=== PATIENT | male | born 1960 | race Caucasian/White ===

== ENCOUNTER 2020-12-18 21:58 | Inpatient (IN) | payer MEDICARE, MEDICAID ==
[~2020-12-18] VITALS: Ht 162.6 cm; Wt 84.1 kg
[2020-12-18] MEDS ORDERED: MAG HYDROX/AL HYDROX/SIMETH 30 ML ORAL.SUSP PO PRN (22:15)
[2020-12-18] MEDS ORDERED: MAGNESIUM HYDROXIDE 2,400 MG/30 ML ORAL.SUSP. PO PRN (22:15)
[2020-12-18] MEDS ORDERED: METHYL SALICYLATE/MENTHOL TOPICAL OINTMENT 57GM TUBE. TP PRN (22:15)
[2020-12-18] MEDS ORDERED: ACETAMINOPHEN 325 MG TABLET PO PRN ×2 (22:15→23:15)
[2020-12-18 22:24] VITALS: BP 143/89
--- NOTE | 2020-12-18 23:00 | NUR ---
Admission Note with Justification for Admission to [facility] Patient admitted to [facility] for protective oversight for emergency stabilization of acute psychiatric crisis. Pt admitted from: Hospital ER Mode of arrival: EMS Accompanied By: [facility] Staff Precipitating behaviors that initiated intake and admission: SI, HI, Agitation and depression Description of failure of out patient attempts at stabilization in previous setting list behavior and medication trials: [facility] Behaviors and assessment findings upon admission: Calm and compliant upon admission. Forthcoming with assessment answers and cooperative with cares. States that he feels depressed and received PRN Zyprexa for increased anxiety later in the shift. Plan: Admit for protective oversight for adjustment and stabilization of medications, behaviors and mood. Intense treatment regimen including groups, medication adjustments, therapy, consistent regimen for ADL's, self care, and sleep hygiene. Daily monitoring by Inpatient staff, Psychiatry, and Medical Physician.
[2020-12-18] MEDS ORDERED: VALP500S PO (23:07)
[2020-12-18] MEDS ORDERED: BISA10SU4 RC (23:07)
[2020-12-18] MEDS ORDERED: cholecalciferol PO (23:07)
[2020-12-18] MEDS ORDERED: POLY2500 PO (23:07)
[2020-12-18] MEDS ORDERED: ACET325T9 PO (23:07)
[2020-12-18] MEDS ORDERED: QUET25TA5 PO (23:07)
[2020-12-18] MEDS ORDERED: LEVE10007 PO (23:07)
[2020-12-18] MEDS ORDERED: LITH300C PO (23:07)
[2020-12-18] MEDS ORDERED: ASPI-630 PO (23:07)
[2020-12-18] MEDS ORDERED: QUET50TA5 PO (23:07)
[2020-12-18] MEDS ORDERED: FLUO20CA20 PO (23:07)
[2020-12-18] MEDS ORDERED: ALBU0.63 NEB (23:07)
[2020-12-18] MEDS ORDERED: DOCU50CA9 PO (23:07)
[2020-12-18] MEDS ORDERED: ESOM40CA47 PO (23:07)
[2020-12-18] MEDS ORDERED: KETO120S4 TP (23:07)
[2020-12-18] MEDS ORDERED: BISACODYL 10 MG SUPP.RECT RC PRN (23:15)
[2020-12-19 06:37] VITALS: BP 116/78
[2020-12-19 07:23] LABS: BASO % 0 % (0-3); EOS % 0 % (0-3); HEMATOCRIT 45.5 % (39.0-53.0); LYMPH # 1.1 x10^3/uL (1.0-4.8); LYMPH % 30 % (24-48); MEAN CORPUSCULAR HEMOGLOBIN 31 pg (25-35); MEAN CORPUSCULAR HGB CONC 33 g/dL (31-37); MEAN CORPUSCULAR VOLUME 94 fL (79-100); MONO # 0.3 x10^3/uL (0.0-1.1); MONO % 7 % (0-9); NEUT # 2.3 x10^3uL (1.8-7.7); NEUT % 63 % (31-73); PLATELET COUNT 120 x10^3/uL (140-400); RED BLOOD COUNT 4.81 x10^6/uL (4.30-5.70); RED CELL DISTRIBUTION WIDTH 14.6 % (11.5-14.5); WHITE BLOOD COUNT 3.6 x10^3/uL (4.0-11.0)
[2020-12-19 07:34] LABS: ALBUMIN 3.3 g/dL (3.4-5.0); ALBUMIN/GLOBULIN RATIO 0.9 (1.0-1.7); ALK PHOS 98 U/L (46-116); ALT (SGPT) 16 U/L (16-63); ANION GAP 9 (6-14); AST (SGOT) 17 U/L (15-37); BLOOD UREA NITROGEN 16 mg/dL (8-26); BUN/CREATININE RATIO 20 (6-20); CALCIUM 9.4 mg/dL (8.5-10.1); CARBON DIOXIDE 29 mmol/L (21-32); CHLORIDE 105 mmol/L (98-107); CREATININE 0.8 mg/dL (0.7-1.3); GFR 98.3; GLUCOSE 85 mg/dL (70-99); MAGNESIUM 2.2 mg/dL (1.8-2.4); POTASSIUM 3.9 mmol/L (3.5-5.1); SODIUM 143 mmol/L (136-145); TOTAL BILIRUBIN 0.3 mg/dL (0.2-1.0); TOTAL PROTEIN 7.1 g/dL (6.4-8.2)
[2020-12-19 07:40] LABS: VAL ACID 48 mcg/mL (50-100)
[2020-12-19] MEDS ORDERED: ALBUTEROL SULFATE 2.5 MG/3 ML NEBU. NEB SCH (08:00)
[2020-12-19] MEDS ORDERED: VALPROIC ACID 250 MG CAPSULE. PO SCH (09:00)
[2020-12-19] MEDS: DOCUSATE 100 MG/10 ML SOLUTION. PO SCH ×2 (10:03→20:38)
[2020-12-19] MEDS: LITHIUM CARBONATE 300 MG TABLET PO SCH ×2 (10:04→20:38)
[2020-12-19] MEDS: PANTOPRAZOLE 40 MG TABLET. PO SCH (10:04)
[2020-12-19] MEDS: ASPIRIN CHEWABLE 81 MG TABLET. PO SCH (10:04)
[2020-12-19] MEDS: FLUoxetine HCL 20 MG CAPSULE PO SCH (10:04)
[2020-12-19] MEDS: QUEtiapine 25 MG TABLET. PO SCH (10:05)
[2020-12-19] MEDS: levETIRAcetam 500 MG TABLET PO SCH ×2 (10:05→20:38)
[2020-12-19] MEDS: POLYETHYLENE GLYCOL 3350 17 GM PACKET. PO SCH (10:05)
[2020-12-19] MEDS: ALBUTEROL SULFATE 8GM INHALER. INH SCH ×3 (12:48→20:44)
[2020-12-19 13:12] LABS: THYROXINE 6.9 ug/dL (4.5-12.0)
--- NOTE | 2020-12-19 14:55 | NUR ---
PSYCHOSOCIAL ASSESSMENT ADMISSION DATE: 12/18/20 CONTACT INFORMATION: DPOA/Guardian Contact Name: Jacob is a self sign. His POA is his brother Juan Carlos Samson but the POA is not currently activated. ETHNIC ORIGIN: REASONS FOR ADMISSION: Aggressive Agitated Depressed Hallucinations Homicidal Ideation Poor impulse control Suicidal ideation ADDITIONAL ADMISSION COMMENTS: Per intake record, SI, HI (took silverware from the dining room stating he was going to hurt someone), agitated, depressed, visual hallucinations, command hallucinations, paranoia, fearful. REASON FOR ADMISSION IN PATIENT/FAMILY'S OWN WORDS: Per Jacob,"Mental illness, I'm diagnosed with schizoaffective." PATIENT/FAMILY EXPECTATIONS FOR ADMISSION: Per Jacob, "To be normal as possible, to have social relations with people I have things in common with." LIVING SITUATION: Patient lives with: [facility] Other living arrangements: [facility] Contact Address: [address] [place] [id number] Contact Phone #: [phone] FAMILY RELATIONS: Marital Status: Single # of Marriages: 0 # of Children: 0 [facility] Family Support: Uninvolved Additional Comments r/t Family: Jacob stated, "I never had the urge to have a family." SIGNIFICANT PSYCHIATRIC/MEDICAL HISTORY: Psychiatric/Treatment History: Per Jacob, he has utilized the [place] [facility] for psychiatric services. Jacob reports he has had "many" in patient hospitalizations for psychiatric treatment. Pertinent Family History: Jacob reports that his father in 1982 of Alzheimer's. Jacob denies any other family members of origin to have mental illness or substance use disorders. HISTORICAL DATA: Childhood Environment: Other-see below Childhood Environment Additional Comments: Jacob was born in [facility] to Eleno Samson. He was the second child born of five. He has two sisters and two brothers; Clair, Lydia, Juan Carlos, and Jakub ( from cancer). Jacob has little contact with his siblings. Jacob could not recall anything pertinent about his childhood. He denied being abused as a child or adult. Trauma History: None reported Drug Abuse History last 12 months: None Comment: Jacob reports that he used to drink a 12 pack a week but quit drinking years ago. He does not smoke or use recreational drugs. 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 He stated that it was difficult to find consistent/stable work. He believes to have been diagnosed with mental illness while he was in the service and later went on disability. service: Jacob served in the [employer], entering at 18 y/o, and served for three years. Catholic background: Jacob has no scientologist preference. Sexual orientation: Unknown Educational Level: Jacob graduated from high school. Past/Present Interests/Hobbies: Jacob has enjoyed coin collecting, history, watching the history channel particularly shows on WWII. Jacob also likes cats. Financial support/resources: Disability [place] Benefits Monthly income: Unknown Person handling finances: Jacob Do you have a history of legal problems: None reported Cultural considerations: None reported. SOCIAL RELATIONSHIPS-CURRENT/PAST: [facility]iat[phone] PCP: Dr. 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 Hallucination/Delus Dec. Symp. Depression Promote Coping Skill No Suicidal/Steve. ideation Medication Stabilization Monitor Med Effects Other preliminary treatment comments: Jacob will be encouraged to attend SW and recreational therapy groups while on the unit. DISCHARGE PLANNING: Discharge planning/disposition: Penitentiary Additional discharge needs identified: F/U with PCP and out patient psychiatry ADDITIONAL INFORMATION: Other Pertinent Data: Met with Jacob this date to support related to recent admit and to complete psychosocial assessment. Jacob was agreeable to visit. He is alert and oriented to present situation and is able to make his needs known. Speech is garbled at times. Jacob appeared to recall recent and remote events. He was calm and without s/s of distress during conversation. He had no concerns or unmet needs at times of visit. SW will follow.
[2020-12-19 15:06] LABS: THYROID STIM HORMONE (TSH) 4.436 uIU/mL (0.358-3.740)
--- NOTE | 2020-12-19 15:11 | NUR ---
Call placed to TO Silva at [facility], with intent to inform that Jacob has been admitted to [facility] for treatment. Left message for Shira with request for return call. Awaiting call.
[2020-12-19 15:30] VITALS: BP 99/64
[2020-12-19] MEDS ORDERED: KETOCONAZOLE 2% SHAMPOO 120ML BOTTLE. TP SCH (16:00)
[2020-12-19 16:28] VITALS: BP 138/84
[2020-12-19] MEDS ORDERED: VALP250S3 PO (17:57)
--- NOTE | 2020-12-19 18:30 | NUR ---
Patient has been calm, compliant, and disorganized this shift. He participated in group activity. Patient had a persistent hacking cough throughout the shift. He stayed withdrawn to his room for most of the shift, he was incontinent multiple times. Will continue to monitor and report to oncoming shift.
--- NOTE | 2020-12-19 19:32 | CONS ---
DATE OF CONSULTATION: 12/19/2020 REASON FOR CONSULTATION: Medical management. HISTORY OF PRESENT ILLNESS: The patient is a 60-year-old male patient who was referred [facility] from [facility] on account of having commanding voices, hallucinating, has suicidal and homicidal ideation. He took a silverware from dining room stating he was going to hurt somebody, is very agitated and depressed. He apparently has visual hallucination, extremely paranoid and he apparently failed outpatient psychiatric intervention at the NH and was referred to this unit for inpatient psychiatric stabilization. PAST MEDICAL HISTORY: Significant for hyperlipidemia, hypertension, osteoarthritis, idiopathic thrombocytopenia. He has also peripheral neuropathy, type 2 diabetes mellitus, seizure disorder. ALLERGIES: HE IS ALLERGIC TO CITALOPRAM. MEDICATIONS: He is currently on following medications: He is on albuterol sulfate by nebulizer 4 times a day, aspirin 81 mg once a day, acetaminophen 650 mg every 6 hours, Keppra 1000 mg twice a day, valproic acid 500 mg daily, fluoxetine 20 mg daily. He is on quetiapine fumarate 50 mg at bedtime, Seroquel 25 mg daily, lithium carbonate 300 mg twice a day, bisacodyl 10 mg rectally daily p.r.n. for constipation, Colace 50 mg twice a day, Nexium 40 mg once a day, ketoconazole shampoo applied topically 3 times a day, polyethylene glycol 17 grams daily and cholecalciferol vitamin D3 2000 units once a day. Apparently, the patient was COVID positive in 09/2020, has had both COVID vaccination, second dose was on 11/06/2020. FAMILY HISTORY: Noncontributory. SOCIAL HISTORY: He is a resident at [facility]. He apparently does not smoke, drink alcohol or use recreational drugs. PHYSICAL EXAMINATION: GENERAL: When I saw him today, he was sitting at the edge of the bed comfortably in no apparent respiratory distress. There was no pallor, jaundice, cyanosis or thyromegaly. No jugular venous distention. No limb edema. VITAL SIGNS: His heart rate was 103, blood pressure was 99/64, temperature was 98.5, respiratory rate was 16, and oxygen saturation was 96%. HEAD, EYES, EARS, NOSE AND THROAT: Showed normocephalic, atraumatic. NECK: Supple. HEART: Showed normal first and second heart sounds. No gallop, rub or murmur. CHEST: Clear to auscultation. No crepitation or rhonchi. ABDOMEN: Distended, soft, nontender. NEUROLOGIC: He was awake, alert, responding appropriately. All cranial nerves intact. EXTREMITIES: He moves extremities without difficulty. He is able to ambulate for short distances, but he is mostly bed bound, wheelchair bound. LABORATORY DATA: Showed a white cell count of 3600, hemoglobin 15, hematocrit 45, MCV 94 and platelet count of 120,000 with normal manual differential. Serum sodium was 143, potassium 3.9, chloride 105, bicarbonate 29, anion gap of 9, BUN 16, creatinine 0.8, estimated GFR was 98 mL per minute. His glucose was 85, calcium was 9.4, magnesium 2.2. Serum iron, TIBC and iron saturation are all normal. His total bilirubin, AST, ALT, alkaline phosphatase were normal. Total protein 7.1, albumin 3.3. Serum triglycerides 187, cholesterol 141, LDL was 64, VLDL was 37, HDL was 40 and ratio was 3. His TSH was 4.436. His total T4 and total T3 are all normal. His D-dimer was 0.33 and toxic screen showed his valproic acid was 48 mcg/mL, which is slightly subtherapeutic. IMPRESSION: In summary, this is a 60-year-old male patient who resides at [facility], who carries a diagnosis of schizoaffective disorder, depressive type. He apparently has been reporting multiple voices are telling him to hurt himself. He also reports that they are intense, they have told him to hurt himself with a knife, feels that the voices are stronger [place] of the [place]. He also reports visual hallucination of a group of voices, people groups, he reports he has managed and controlled the urge to hurt himself, but yesterday he heard voices telling him to hurt staff. Denies any homicidal ideation on the day of admission. Apparently, the patient has had a suicidal attempt in 2014 and therefore he was transferred to [facility] for inpatient psychiatric stabilization. Medically, he has multiple medical problems including hypertension, hyperlipidemia, thrombocytopenia, chronic constipation, peripheral neuropathy, type 2 diabetes mellitus, seizure disorder. All in all, the patient seems to be medically stable. His vital signs are stable. I reviewed all his lab work and all seem to be within acceptable range except that he has obviously thrombocytopenia and mild leukopenia. Thank you, Dr. Deras for allowing me to participate in the care of this patient. JUSTIN RAMOS MD DR: BETO/thony JOB#: [id number] / [id number]
[2020-12-19] MEDS: CHOLECALCIFEROL (VITAMIN D3) 1,000 UNIT TABLET PO SCH (20:42)
[2020-12-19] MEDS: VALPROIC ACID 250 MG CAPSULE. PO SCH (20:42)
--- NOTE | 2020-12-19 20:59 | PDOC ---
Exam Note: Travis Note: Please also refer to the separate dictated note~for this date of service dictated separately.~Patient seen individually. Discussed the patient with Nursing staff reviewed the chart.~Reviewed interim history and current functioning. Reviewed vital signs,~Labs/ Radiology~and current medications noted below. Continue current treatment with the changes noted in the dictated addendum note Assessment: Vital Signs/I&O: Vital Signs Date Time Temp Pulse Resp B/P (MAP) Pulse Ox O2 Delivery O2 Flow Rate FiO2 12/19/20 16:28 76 138/84 (102) 100 Room Air 12/19/20 15:30 98.5 16 I & O 12/18/20 12/18/20 12/19/20 15:00 23:00 07:00 Intake Total 0 ml Balance 0 ml Labs: Laboratory Tests Test 12/19/20 06:42 White Blood Count 3.6 x10^3/uL (4.0-11.0) L Red Blood Count 4.81 x10^6/uL (4.30-5.70) Hemoglobin 15.0 g/dL (13.0-17.5) Hematocrit 45.5 % (39.0-53.0) Mean Corpuscular Volume 94 fL (79-100) Mean Corpuscular Hemoglobin 31 pg (25-35) Mean Corpuscular Hemoglobin Concent 33 g/dL (31-37) Red Cell Distribution Width 14.6 % (11.5-14.5) H Platelet Count 120 x10^3/uL (140-400) L Neutrophils (%) (Auto) 63 % (31-73) Lymphocytes (%) (Auto) 30 % (24-48) Monocytes (%) (Auto) 7 % (0-9) Eosinophils (%) (Auto) 0 % (0-3) Basophils (%) (Auto) 0 % (0-3) Neutrophils # (Auto) 2.3 x10^3uL (1.8-7.7) Lymphocytes # (Auto) 1.1 x10^3/uL (1.0-4.8) Monocytes # (Auto) 0.3 x10^3/uL (0.0-1.1) Eosinophils # (Auto) 0.0 x10^3/uL (0.0-0.7) Basophils # (Auto) 0.0 x10^3/uL (0.0-0.2) D-Dimer (Marlen) 0.33 mg/L (0.00-0.50) Sodium Level 143 mmol/L (136-145) Potassium Level 3.9 mmol/L (3.5-5.1) Chloride Level 105 mmol/L (98-107) Carbon Dioxide Level 29 mmol/L (21-32) Anion Gap 9 (6-14) Blood Urea Nitrogen 16 mg/dL (8-26) Creatinine 0.8 mg/dL (0.7-1.3) Estimated GFR (Cockcroft-Gault) 98.3 BUN/Creatinine Ratio 20 (6-20) Glucose Level 85 mg/dL (70-99) Calcium Level 9.4 mg/dL (8.5-10.1) Magnesium Level 2.2 mg/dL (1.8-2.4) Iron Level 66 ug/dL (65-175) Total Iron Binding Capacity 290 ug/dL (250-450) Iron Saturation 23 % (15-34) Total Bilirubin 0.3 mg/dL (0.2-1.0) Aspartate Amino Transferase (AST) 17 U/L (15-37) Alanine Aminotransferase (ALT) 16 U/L (16-63) Alkaline Phosphatase 98 U/L (46-116) Total Protein 7.1 g/dL (6.4-8.2) Albumin 3.3 g/dL (3.4-5.0) L Albumin/Globulin Ratio 0.9 (1.0-1.7) L Triglycerides Level 187 mg/dL (0-150) H Cholesterol Level 141 mg/dL (0-200) LDL Cholesterol, Calculated 64 mg/dL (0-100) VLDL Cholesterol, Calculated 37 mg/dL (0-40) Non-HDL Cholesterol Calculated 101 mg/dL (0-129) HDL Cholesterol 40 mg/dL (40-60) Cholesterol/HDL Ratio 3.0 Vitamin B12 Level 874 pg/mL (247-911) 25-Hydroxy Vitamin D Total 59.7 ng/mL (30-100) Thyroid Stimulating Hormone (TSH) 4.436 uIU/mL (0.358-3.740) Thyroxine (T4) 6.9 ug/dL (4.5-12.0) Total Triiodothyronine (TT3) 112 ng/dL (71-180) Valproic Acid Level 48 mcg/mL (50-100) L Valproic Acid Last Dose Date 12/18/20 Valproic Acid Last Dose Time 0900 Treponema pallidum Antibody Nonreactive (Nonreactive) Current Medications: Meds: Current Medications Medications (Trade) Dose Ordered Sig/Manpreet Route PRN Reason Start Time Stop Time Status Last Admin Dose Admin Aspirin (Aspirin Chewable) 81 mg DAILY PO 12/19/20 09:00 12/19/20 10:04 Fluoxetine HCl (PROzac) 20 mg DAILY PO 12/19/20 09:00 12/19/20 10:04 Quetiapine Fumarate (SEROquel) 25 mg DAILY PO 12/19/20 09:00 12/19/20 10:05 Quetiapine Fumarate (SEROquel) 50 mg QHS PO 12/19/20 21:00 12/19/20 20:40 Docusate Sodium (Colace Solution) 50 mg BID PO 12/19/20 09:00 12/19/20 20:38 Pantoprazole Sodium (Protonix) 40 mg DAILYAC PO 12/19/20 07:30 12/19/20 10:04 Levetiracetam (Keppra) 1,000 mg BID PO 12/19/20 09:00 12/19/20 20:38 [place] Carbonate 300 mg BID PO 12/19/20 09:00 12/19/20 20:38 Polyethylene Glycol (miraLAX) 17 gm DAILY PO 12/19/20 09:00 12/19/20 10:05 Valproic Acid (Depakene) 500 mg DAILY PO 12/19/20 09:00 12/19/20 18:01 DC 12/19/20 10:04 Vitamin D (Vitamin D3) 2,000 unit QHS PO 12/19/20 21:00 12/19/20 20:42 Olanzapine (ZyPREXA ZYDIS) 5 mg PRN Q2HR PRN PO PSYCHOSIS 12/18/20 23:30 12/18/20 23:30 Albuterol Sulfate (Ventolin Hfa Inhaler) 1 puff QID INH 12/19/20 13:00 12/19/20 20:44 Valproic Acid (Depakene) 750 mg QHS PO 12/19/20 21:00 12/19/20 20:42 I have reviewed the current psychotropics carefully including drug interactions. Risk benefit ratio favors no change other than as noted in my dictated progress note. Diagnosis: Problems: (1) Schizoaffective disorder, bipolar type ROSI OSORIO MD Dec 19, 2020 20:59
[2020-12-19] MEDS ORDERED: QUEtiapine 50 MG TABLET. PO SCH (21:00)
--- NOTE | 2020-12-19 22:35 | HP ---
ADMIT DATE: 12/19/2020 PSYCHIATRIC ADMISSION HISTORY/EVALUATION IDENTIFYING DATA: The patient is a 60-year-old male, referred to us from the [facility] in [place] after he presented there from the nursing facility where he resides and was increasingly paranoid and was voicing suicidal ideation and homicidal ideation. Reportedly, he took a knife from the dining room, was threatening to hurt one of the other residents. He had also voiced suicidal ideation, but without any plan, intent or attempt. He was increasingly agitated, depressed, stated he needed his psychotropics adjusted for his mood symptoms and was sent to the [facility]. The [facility] drug abuse social worker was contacted, education program coordinator Eulalia Gallegos, and I discussed the patient with Eulalia before agreeing to the transfer. CHIEF COMPLAINT: "I need my medications adjusted. Yes, I am depressed." HISTORY OF PRESENT ILLNESS: Reportedly, the patient has a long history of schizoaffective disorder, bipolar type. Recently, he has been more paranoid, depressed, anxious with some sleep and appetite changes. No active hallucinations but he has been somewhat paranoid. He denies any current homicidal ideation or suicidal ideation at the time I examined him, evening of 12/19/2020. He does have a history of mood swings. PAST PSYCHIATRIC HISTORY: As above. MEDICAL HISTORY: Hyperlipidemia, hypertension, osteoarthritis, idiopathic thrombocytopenic purpura, seizures, type 2 diabetes mellitus, peripheral neuropathy, chronic constipation. He has been on a PEG tube in the past. ACCU-CHEKS: Before meals and at bedtime. CODE STATUS: Full code. ALLERGIES: CELEXA. DIET: Diabetic, honey thickened. Takes medications whole. Ambulates x 1-2 with walker by himself or wheelchair. CURRENT PSYCHOTROPICS: Prozac 5 mg a day, lithium 300 mg b.i.d., Seroquel 50 mg at bedtime and 25 mg daily, Depakote liquid 500 mg daily, Zyprexa p.r.n. Valproic acid level is 48, though he may not be getting the same dosage he was getting at the residential and we will contact the residential. We will start the dosage they were giving and repeat another valproic acid level in 2 days. FAMILY HISTORY: Noncontributory. SOCIAL HISTORY: No history of alcohol, drug abuse, physical, sexual or elder abuse. He is not known to be a perpetrator. REACTION TO HOSPITALIZATION: The patient accepting of it. ASSETS: Supportive, [facility] REVIEW OF SYSTEMS: No CV, , pulmonary, eye, ENT system symptoms on review. MENTAL STATUS EXAMINATION: The patient is oriented to himself and situation. Speech has some latency, coherent. Abstraction fair, computation impaired, language function intact, attention span short. Mood and affect somewhat withdrawn. He was lying in bed in his room when I went to visit him. No active suicidal or homicidal ideation. LABORATORY DATA: Reviewed. IMPRESSION: Schizoaffective disorder, bipolar type, depressed with psychotic features; anxiety disorder, unspecified; history of major depressive disorder with psychotic features. Rest unchanged from above. PLAN: Continue current psychotropics. Check a valproic acid level and adjust dosage of Depakote as noted above. Check lithium level. Continue rest of psychotropics and adjust as clinically indicated. I will see the patient daily individually, medical followup with Dr. Brar/Dr. Jean ESTIMATED LENGTH OF STAY: 10-12 days. DISPOSITION: Plans back to residential when stable. MAN Melissa OSORIO MD DR: MICHELLE/thony JOB#: [id number] / [id number]
[2020-12-20 01:07] LABS: HEMOGLOBIN A1C 5.1 % (4.8-5.6)
--- NOTE | 2020-12-20 02:53 | NUR ---
Nursing Note The patient was located in the hallway for his assessment and medication pass. The patient took his medication whole. The patient was compliant with his assessment and was able state name and location but was unable to state year. The patient voiced at several times that he would like to leave the hospital soon.
[2020-12-20 06:22] VITALS: BP 116/71
[2020-12-20] MEDS: levETIRAcetam 500 MG TABLET PO SCH ×2 (09:44→20:38)
[2020-12-20] MEDS: POLYETHYLENE GLYCOL 3350 17 GM PACKET. PO SCH (09:44)
[2020-12-20] MEDS: DOCUSATE 100 MG/10 ML SOLUTION. PO SCH ×2 (09:44→20:41)
[2020-12-20] MEDS: ASPIRIN CHEWABLE 81 MG TABLET. PO SCH (09:45)
[2020-12-20] MEDS: FLUoxetine HCL 20 MG CAPSULE PO SCH (09:45)
[2020-12-20] MEDS: LITHIUM CARBONATE 300 MG TABLET PO SCH ×2 (09:45→20:38)
[2020-12-20] MEDS: QUEtiapine 25 MG TABLET. PO SCH (09:45)
[2020-12-20] MEDS: PANTOPRAZOLE 40 MG TABLET. PO SCH (09:45)
[2020-12-20] MEDS: VALPROIC ACID 250 MG CAPSULE. PO SCH ×3 (09:46→20:38)
[2020-12-20] MEDS: ALBUTEROL SULFATE 8GM INHALER. INH SCH ×4 (09:47→20:44)
--- NOTE | 2020-12-20 13:02 | NUR ---
Pt appears in a pleasant and cooperative mood thus far during shift. He is med compliant and cooperative with morning assessment. He is able to make needs known; for example he has requested that [facility] staff communicate with his provider at [facility] to ensure a smooth continuation of care. He endorses non-specific and intermittent HI and SI with no plan. He is able and willing to verbally contract for safety of self and others and has been absent of SI/HI behaviors during shift. He reports VH/AH but does not go into further detail. There have been a few occasions where nursing staff have observed pt in his room alone and appeared to be looking at and talking to and unknown/unseen entity. He denies pain when asked. Prior to ending assessment session pt was once again asked if he is able to refrain from harming himself or others. Pt chuckled and replied, "As long as you don't anger me or get me drunk."
[2020-12-20 16:06] VITALS: BP 130/78
[2020-12-20] MEDS: MINERAL OIL/PETROLATUM TOPICAL CREAM 113GM JAR. TP SCH ×2 (16:52→20:41)
[2020-12-20] MEDS: CHOLECALCIFEROL (VITAMIN D3) 1,000 UNIT TABLET PO SCH (20:38)
[2020-12-20] MEDS: risperiDONE 0.5 MG TABLET. PO SCH (20:43)
--- NOTE | 2020-12-20 20:59 | PDOC ---
Exam Note: Travis Note: Please also refer to the separate dictated note~for this date of service dictated separately.~Patient seen individually. Discussed the patient with Nursing staff reviewed the chart.~Reviewed interim history and current functioning. Reviewed vital signs,~Labs/ Radiology~and current medications noted below. Continue current treatment with the changes noted in the dictated addendum note Assessment: Vital Signs/I&O: Vital Signs Date Time Temp Pulse Resp B/P (MAP) Pulse Ox O2 Delivery O2 Flow Rate FiO2 12/20/20 16:06 97.8 81 16 130/78 (95) 98.0 12/20/20 06:22 97 Room Air I & O 12/19/20 12/19/20 12/20/20 15:00 23:00 07:00 Intake Total 580 ml 480 ml Balance 580 ml 480 ml Labs: Laboratory Tests Test 12/20/20 06:34 [place] Level 0.7 mmol/L (0.6-1.2) [place] Last Dose Date 12/19/20 [place] Last Dose Time 2100 Current Medications: Meds: Laboratory Tests Test 12/20/20 06:34 [place] Level 0.7 mmol/L [place] Last Dose Date 12/19/20 [place] Last Dose Time 2100 Current Medications Medications (Trade) Dose Ordered Sig/Manpreet Route PRN Reason Start Time Stop Time Status Last Admin Dose Admin Acetaminophen (Tylenol) 650 mg PRN Q6HRS PRN PO MILD PAIN / TEMP > 100.3'F 12/18/20 22:15 12/18/20 23:22 DC Multi-Ingredient Ointment (Analgesic [place]) 1 deanna PRN QID PRN TP MUSCLE PAIN 12/18/20 22:15 Al Hydroxide/Mg Hydroxide (Mylanta Plus Xs) 15 ml PRN AFTMEALHC PRN PO DYSPEPSIA 12/18/20 22:15 Magnesium Hydroxide (Milk Of Magnesia) 2,400 mg PRN QHS PRN PO 1ST CHOICE CONSTIPATION 12/18/20 22:15 Acetaminophen (Tylenol) 650 mg PRN Q6HRS PRN PO MILD PAIN / TEMP > 100.3'F 12/18/20 23:15 Aspirin (Aspirin Chewable) 81 mg DAILY PO 12/19/20 09:00 12/20/20 09:45 Bisacodyl (Dulcolax Supp) 10 mg PRN DAILY PRN RC 2ND CHOICE CONSTIPATION 12/18/20 23:15 Fluoxetine HCl (PROzac) 20 mg DAILY PO 12/19/20 09:00 12/20/20 09:45 Ketoconazole (Nizoral 2% Shampoo) 1 deanna QTUTHSA TP 12/19/20 16:00 Quetiapine Fumarate (SEROquel) 25 mg DAILY PO 12/19/20 09:00 12/20/20 17:39 DC 12/20/20 09:45 Quetiapine Fumarate (SEROquel) 50 mg QHS PO 12/19/20 21:00 12/20/20 17:39 DC 12/19/20 20:40 Albuterol Sulfate (Ventolin) 2.5 mg RTQID NEB 12/19/20 08:00 12/19/20 11:21 DC Docusate Sodium (Colace Solution) 50 mg BID PO 12/19/20 09:00 12/20/20 09:44 Pantoprazole Sodium (Protonix) 40 mg DAILYAC PO 12/19/20 07:30 12/20/20 09:45 Levetiracetam (Keppra) 1,000 mg BID PO 12/19/20 09:00 12/20/20 20:38 [place] Carbonate 300 mg BID PO 12/19/20 09:00 12/20/20 20:38 Polyethylene Glycol (miraLAX) 17 gm DAILY PO 12/19/20 09:00 12/20/20 09:44 Valproic Acid (Depakene) 500 mg DAILY PO 12/19/20 09:00 12/19/20 18:01 DC 12/19/20 10:04 Vitamin D (Vitamin D3) 2,000 unit QHS PO 12/19/20 21:00 12/20/20 20:38 Olanzapine (ZyPREXA ZYDIS) 5 mg PRN Q2HR PRN PO PSYCHOSIS 12/18/20 23:30 12/18/20 23:30 Albuterol Sulfate (Ventolin Hfa Inhaler) 1 puff QID INH 12/19/20 13:00 12/20/20 20:44 Valproic Acid (Depakene) 750 mg QHS PO 12/19/20 21:00 12/20/20 20:38 Valproic Acid (Depakene) 500 mg 0900,1700 PO 12/20/20 09:00 12/20/20 16:52 Multi-Ingred Cream/Lotion/Oil/ Oint (Hydrocerin) 1 deanna BID TP 12/20/20 16:00 12/20/20 20:41 Risperidone (RisperDAL) 0.25 mg 0800 PO 12/21/20 08:00 Risperidone (RisperDAL) 0.5 mg HS PO 12/20/20 21:00 12/20/20 20:43 Current Medications Medications (Trade) Dose Ordered Sig/Manpreet Route PRN Reason Start Time Stop Time Status Last Admin Dose Admin Quetiapine Fumarate (SEROquel) 50 mg QHS PO 12/19/20 21:00 12/20/20 17:39 DC 12/19/20 20:40 Vitamin D (Vitamin D3) 2,000 unit QHS PO 12/19/20 21:00 12/20/20 20:38 Valproic Acid (Depakene) 750 mg QHS PO 12/19/20 21:00 12/20/20 20:38 Valproic Acid (Depakene) 500 mg 0900,1700 PO 12/20/20 09:00 12/20/20 16:52 Multi-Ingred Cream/Lotion/Oil/ Oint (Hydrocerin) 1 deanna BID TP 12/20/20 16:00 12/20/20 20:41 Risperidone (RisperDAL) 0.5 mg HS PO 12/20/20 21:00 12/20/20 20:43 I have reviewed the current psychotropics carefully including drug interactions. Risk benefit ratio favors no change other than as noted in my dictated progress note. Diagnosis: Problems: (1) Bipolar disorder, curr episode mixed, severe, with psychotic features (2) Major depressive disorder with psychotic features (3) Anxiety disorder, unspecified (4) Schizoaffective disorder, bipolar type ROSI OSORIO MD Dec 20, 2020 20:59
--- NOTE | 2020-12-20 22:45 | PN ---
DATE: 12/20/2020 PSYCHIATRIC PROGRESS NOTE This note covers elements not covered in my initial note 12/20/2020. SUBJECTIVE: I met with the patient evening of 12/20/2020 in his room. Discussed with DEEDEE Silva. The patient slept 6 hours previous night. The patient has been somewhat withdrawn, needs reminders by nursing staff for his personal hygiene. He has had some diarrhea. He is wanting us to contact the [facility], so I talked to the doctors and we will request records of past psychiatric treatment from the [facility]. Per nursing staff, he has had some more auditory or visual hallucinations, appear psychotic during the day. He has no specific threats to himself or others, but states when he gets frustrated he wants to hurt himself or someone else. Nothing specific on my evaluation. REVIEW OF SYSTEMS: Ambulation impaired with walker. No CV, , pulmonary, eye system symptoms on review. MENTAL STATUS EXAM: Reasonably oriented. Speech is coherent, has some latency. Abstraction fair, computation impaired, language function intact, attention span short. Mood and affect somewhat anxious, labile. LABORATORY DATA: Reviewed. IMPRESSION: Schizoaffective disorder, bipolar type, mixed with psychotic features. Rest unchanged. PLAN: Quentin level today is 0.7. He remains quite psychotic and we will change the Seroquel to Risperdal 0.25 mg a.m. and 0.5 mg at bedtime. Get records from the [facility]. Continue Depakote at the current dosage along with lithium, Prozac, Zyprexa as p.r.n., adjust further as clinically indicated. MAN Melissa OSORIO MD DR: MICHELLE/thony JOB#: [id number] / [id number]
--- NOTE | 2020-12-20 23:39 | NUR ---
Nursing Note Pt in room, sits up in bed during assessment. Stares at me wide eyed, and blurts out "I'm a paranoid schizo!! Just what is your treatment plan for me in this place, tell me what you are going to do to ensure my success in this program? Where am I going for my discharge tomorrow?" I explained he was here to get med adjustments and to decrease his agitation. I also told him that I was not the steaming machine operator that could help with discharge info that info will be determined depending on progress. Pt stated "Oh so me and you are just the pee-on's around here, we only get information when it suits others HUH?? Well I know where I stand then!" I informed him that social work will be back and he would be able to speak with them. Pt states "Well I bet they are on a 4 day weekend, and won't be back till Friday! So much for that talk!!" Informed patient SW will be here M-F. pt med compliant and cooperative. Voided with [employer] but specimen wasn't collected, will attempt later in the shift. Pt agreeable to providing specimen.
--- NOTE | 2020-12-21 00:47 | NUR ---
Nursing Note Pt has diffuse red patches over his body, seems to be more evident after his shower. Has many areas that look as though he has scratched raw. When I inquired about them, he states that he was a redhead and that his coloring is consistent with that. Increased intensity of color present after his shower.
[2020-12-21 05:58] VITALS: BP 130/72
[2020-12-21] MEDS: ASPIRIN CHEWABLE 81 MG TABLET. PO SCH (08:47)
[2020-12-21] MEDS: PANTOPRAZOLE 40 MG TABLET. PO SCH (08:47)
[2020-12-21] MEDS: risperiDONE 0.25 MG TABLET. PO SCH (08:47)
[2020-12-21] MEDS: LITHIUM CARBONATE 300 MG TABLET PO SCH ×2 (08:47→19:44)
[2020-12-21] MEDS: FLUoxetine HCL 20 MG CAPSULE PO SCH (08:47)
[2020-12-21] MEDS: DOCUSATE 100 MG/10 ML SOLUTION. PO SCH ×2 (08:48→19:44)
[2020-12-21] MEDS: POLYETHYLENE GLYCOL 3350 17 GM PACKET. PO SCH (08:48)
[2020-12-21] MEDS: levETIRAcetam 500 MG TABLET PO SCH ×2 (08:48→19:44)
[2020-12-21] MEDS: VALPROIC ACID 250 MG CAPSULE. PO SCH ×3 (08:48→19:44)
[2020-12-21] MEDS: MINERAL OIL/PETROLATUM TOPICAL CREAM 113GM JAR. TP SCH ×2 (08:49→19:45)
[2020-12-21] MEDS: ALBUTEROL SULFATE 8GM INHALER. INH SCH ×4 (08:49→19:45)
--- NOTE | 2020-12-21 10:53 | NUR ---
WEEKLY ACTIVITY THERAPY NOTE Date of Admission: 12/18/20 Date of AT Assessment: TBD Precipitating behaviors that initiated intake and admission: SI, HI, Agitation and depression Goal aimed: TBD Initial Goal: TBD Weekly progress towards goal: NA Group participation level: 2 full since admission Weekly highlights: arrived to unit and has fully engaged in a couple groups Behaviors observed: coughing, pleasant/appropriate in group setting and able to process directions and understand group expectations Plan: meet/ assess Pt Beneficial adaptations:
--- NOTE | 2020-12-21 11:45 | TX PLAN ---
Interdisciplinary Tx Plan Admission Information Dec 18, 2020 at 21:58 Legal Status (on Admission): Voluntary DPOA/Guardian Name: Jacob is a self sign. Brother is POA when needed. Other Contact Verified Code Status: Full Code Allergies: Coded Allergies: citalopram (Verified Allergy, Unknown, 12/18/20) Estimated Length of Stay: 14 Diagnoses Primary Diagnosis: Schizoaffective, bipolar type with psychotic fetures Reasons for Admission: Aggressive, Agitated, Depressed, Hallucinations, Suicidal ideation, Homicidal Ideation, Poor impulse control Problem in Patient's Words: Per Jacob,"Mental illness, I'm diagnosed with schizoaffective." Additional Admission Comments: Per intake record, SI, HI (took silverware from the dining room stating he was going to hurt someone), agitated, depressed, visual hallucintations, command hallucinations, paranoia, fearful. Problems Active Problems: SI HI Hallucinating Paranoid Inactive Problems: Intakes are adequate Slept eight hours night of 12/20/20 Medication compliant Pt Strengths/Limitations Ability for [place]: Fair Cognitive Functioning/Ability: Fair Communication Skills/Ability: Fair Financial Resources: Fair Insight/Judgement: Fair Intellectual Ability: Fair Physical Health: Fair Social Skills: Fair Stability in Family: Poor Verbal Skills: Fair Discharge Criteria Discharge Criteria: Adequate arrangements @DC, Adequate self-care, Improved behavior, Improved mood/thought Preliminary Discharge Plan Preliminary DC Plan: Jail Other Arrangements: [facility] Special Precautions Special Precautions: Agitation/Assault, Suicide Risk, Swallowing/Choking Fall Risk: High Initial D/C Plan Return to [facility] once stable Identified Discharge Needs: F/U with PCP and out patient psychiatry thru the [place] Currently Utilized Resources Currently Utilized Resources/P: PCP [place] out patient mental health services Identified Problems/Hx/Goals Objectives/Short-Term Goals Short Term Goals: Dec. Hallucination/Delus, Dec. Symp. Depression, Medication Stabilization, Monitor Med Effects, No Suicidal/Steve. ideation, Promote Coping Skill Short Term Goals in Patient's: Per Jacob, "Be normal as possible. Have social relations with people I have things in common with." Interventions/Frequency Staff Interventions/Frequency&: Nursing to provide routine safety checks, medication administration, and adl support. Psychiatry three times weekly. SW visit twice weekly. Recreational and SW groups as Jacob desires. 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 He stated that it was difficult to find consistent/stable work. He believes to have been diagnosed with mental illness while he was in the service and later went on disability. Social: Jacob has enjoyed coin collecting, history, and cats. Education: Jacob graduated from high school. Community Follow-up PCP [place] [facility] Treatment Plan Explained Patient/Insurance Biller had this treatment plan explained to him/her as indicated by the signature below and has been given the opportunity to ask questions and make suggestions: Date: Patient/Insurance Biller Signature: CANDACE HERNANDEZ Dec 21, 2020 11:45
--- NOTE | 2020-12-21 12:35 | NUR ---
ACTIVITY THERAPY ASSESSMENT completed based on notes, observation and interview. Pt was using a wheelchair to ambulate self through the allan. Pt asked AT if he could have a copy of his brother's phone number. AT asked pt if she could ask a few questions first and then ask about the phone number. Pt was pleasant and agreeable during time of assessment. Pt often speaks with wide eyes and little eye contact. Assessment was taken to pt's room. Pt's skin is very red and appears to have been scratched raw, pt also has severely dry skin. Pt said that this was his third time on [facility], based on notes there are no prior admissions for this pt. Pt was able to answer some orientation questions such as his birthday and that he was in [employer]. Pt said that the year was 2001 and he was at [facility] [employer] [facility]. Pt likes history, watching TV, watching movies, music and some magazines. Pt said that he liked history because his dad was in World War II. Pt said that he did not have many friends and those he had have . 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 Pt said that his strokes did not cause any severe health problems but he is in a wheelchair. Pt said that he has never been and has no children. Pt said that he utilizes the [facility] in [place] for inpatient and outpatient services. Pt explained that his reason for admission is because of suicidal thoughts and depression. Pt agrees that he is still having suicidal thoughts and depressive episodes. Pt said that he would like to go back to [place] because he really likes the [facility] there. Pt said that he has two sisters in [place] and would really like to go back. AT explained what activities are offered. Pt said he did not have any confucianist background but did request a bible to read. Initial goal aimed to increase time management and socialization skills. Pt will participate in at least five individual or group Activity Therapy sessions per week.
--- NOTE | 2020-12-21 13:59 | NUR ---
Treatment team meeting was held today. TO contacted Alissa, nurse at [facility], to provide an update on Jacob. Faxed current notes, medication list, and labs to Alissa for review. Tentative d/c date around 01/03/21. Addendum: 12/21/20 at 1633 by CANDACE ARIZA TO met with Jacob per his request. Above information reviewed with Jacob and he expressed agreement to the plan and voiced that he just wanted to be informed of the plan. Jacob expresses the desire to live in a care facility located in [place] to be closer to his family. TO will mention this to his SW at [facility] to see if this is something that can be researched as possible option for the future.
--- NOTE | 2020-12-21 15:17 | NUR ---
Per MD order, medical record request faxed to [facility].
[2020-12-21 18:26] LABS: BILIRUBIN,URINE NEG (NEG); CLARITY,URINE CLEAR; COLOR,URINE YELLOW; GLUCOSE,URINE NEG (NEG); NITRITE,URINE NEG (NEG)
[2020-12-21 18:27] LABS: BACTERIA,URINE 0 /HPF (0-FEW); WBC,URINE 0 /HPF (0-4)
--- NOTE | 2020-12-21 18:30 | NUR ---
Patient has been calm, compliant, and disorganized this shift. He participated in group activity. Patient has an intermittent hacking cough throughout the shift. He was social with staff. Will continue to monitor and report to oncoming shift.
[2020-12-21] MEDS: CHOLECALCIFEROL (VITAMIN D3) 1,000 UNIT TABLET PO SCH (19:45)
[2020-12-21] MEDS: risperiDONE 0.5 MG TABLET. PO SCH (19:45)
--- NOTE | 2020-12-21 21:06 | PDOC ---
Exam Note: Travis Note: Please also refer to the separate dictated note~for this date of service dictated separately.~Patient seen individually. Discussed the patient with Nursing staff reviewed the chart.~Reviewed interim history and current functioning. Reviewed vital signs,~Labs/ Radiology~and current medications noted below. Continue current treatment with the changes noted in the dictated addendum note Assessment: Vital Signs/I&O: Vital Signs Date Time Temp Pulse Resp B/P (MAP) Pulse Ox O2 Delivery O2 Flow Rate FiO2 12/21/20 05:58 97.6 81 18 130/72 (91) 99 12/20/20 16:06 98.0 12/20/20 06:22 Room Air I & O 12/20/20 12/20/20 12/21/20 15:00 23:00 07:00 Intake Total 440 ml 200 ml Balance 440 ml 200 ml Labs: Laboratory Tests Test 12/21/20 18:00 Urine Collection Type Unknown Urine Color Yellow Urine Clarity Clear Urine pH 7.0 Urine Specific [place] 1.020 Urine Protein Neg (NEG-TRACE) Urine Glucose (UA) Neg mg/dL (NEG) Urine Ketones (Stick) Neg mg/dL (NEG) Urine Blood Neg (NEG) Urine Nitrite Neg (NEG) Urine Bilirubin Neg (NEG) Urine Urobilinogen Dipstick 2.0 mg/dL (0.2 mg/dL) Urine Leukocyte Esterase Neg (NEG) Urine RBC 1-2 /HPF (0-2) Urine WBC 0 /HPF (0-4) Urine Squamous Epithelial Cells None /LPF Urine Bacteria 0 /HPF (0-FEW) Current Medications: Meds: Current Medications Medications (Trade) Dose Ordered Sig/Manpreet Route PRN Reason Start Time Stop Time Status Last Admin Dose Admin Risperidone (RisperDAL) 0.25 mg 0800 PO 12/21/20 08:00 12/21/20 08:47 I have reviewed the current psychotropics carefully including drug interactions. Risk benefit ratio favors no change other than as noted in my dictated progress note. Diagnosis: Problems: (1) Schizoaffective disorder, bipolar type (2) Anxiety disorder, unspecified (3) Bipolar disorder, curr episode mixed, severe, with psychotic features (4) Major depressive disorder with psychotic features ROSI OSORIO MD Dec 21, 2020 21:06
--- NOTE | 2020-12-22 00:32 | NUR ---
Nursing Note Pt less intrusive, calm and compliant no odd statements. Cooperative with meds and assessments.
[2020-12-22] MEDS: ASPIRIN CHEWABLE 81 MG TABLET. PO SCH (05:27)
[2020-12-22] MEDS: PANTOPRAZOLE 40 MG TABLET. PO SCH (05:27)
[2020-12-22] MEDS: VALPROIC ACID 250 MG CAPSULE. PO SCH ×3 (05:27→20:35)
[2020-12-22] MEDS: risperiDONE 0.25 MG TABLET. PO SCH (05:27)
[2020-12-22] MEDS: levETIRAcetam 500 MG TABLET PO SCH ×2 (05:27→20:35)
[2020-12-22] MEDS: LITHIUM CARBONATE 300 MG TABLET PO SCH ×2 (05:27→20:36)
[2020-12-22] MEDS: FLUoxetine HCL 20 MG CAPSULE PO SCH (05:27)
[2020-12-22] MEDS: DOCUSATE 100 MG/10 ML SOLUTION. PO SCH ×2 (05:28→20:36)
[2020-12-22] MEDS: MINERAL OIL/PETROLATUM TOPICAL CREAM 113GM JAR. TP SCH ×2 (05:28→20:36)
[2020-12-22] MEDS: ALBUTEROL SULFATE 8GM INHALER. INH SCH ×4 (05:28→20:39)
[2020-12-22] MEDS: POLYETHYLENE GLYCOL 3350 17 GM PACKET. PO SCH (05:28)
[2020-12-22 05:45] LABS: BASO % 0 % (0-3); EOS % 0 % (0-3); HEMATOCRIT 40.7 % (39.0-53.0); HEMOGLOBIN 13.4 g/dL (13.0-17.5); LYMPH # 1.3 x10^3/uL (1.0-4.8); LYMPH % 33 % (24-48); MEAN CORPUSCULAR HEMOGLOBIN 31 pg (25-35); MEAN CORPUSCULAR HGB CONC 33 g/dL (31-37); MEAN CORPUSCULAR VOLUME 95 fL (79-100); MONO # 0.2 x10^3/uL (0.0-1.1); MONO % 6 % (0-9); NEUT # 2.3 x10^3uL (1.8-7.7); NEUT % 60 % (31-73); PLATELET COUNT 108 x10^3/uL (140-400); RED BLOOD COUNT 4.28 x10^6/uL (4.30-5.70); RED CELL DISTRIBUTION WIDTH 14.7 % (11.5-14.5); WHITE BLOOD COUNT 3.9 x10^3/uL (4.0-11.0)
[2020-12-22 06:02] LABS: ALBUMIN 2.9 g/dL (3.4-5.0); ALBUMIN/GLOBULIN RATIO 0.9 (1.0-1.7); ALK PHOS 88 U/L (46-116); ALT (SGPT) 17 U/L (16-63); ANION GAP 7 (6-14); AST (SGOT) 8 U/L (15-37); BLOOD UREA NITROGEN 11 mg/dL (8-26); BUN/CREATININE RATIO 12 (6-20); CALCIUM 8.6 mg/dL (8.5-10.1); CARBON DIOXIDE 28 mmol/L (21-32); CHLORIDE 108 mmol/L (98-107); CREATININE 0.9 mg/dL (0.7-1.3); GFR 85.8; GLUCOSE 114 mg/dL (70-99); SODIUM 143 mmol/L (136-145); TOTAL BILIRUBIN 0.3 mg/dL (0.2-1.0); TOTAL PROTEIN 6.2 g/dL (6.4-8.2)
[2020-12-22 06:03] LABS: VAL ACID 71 mcg/mL (50-100)
[2020-12-22 06:18] VITALS: BP 153/92
[2020-12-22] MEDS ORDERED: risperiDONE 1 MG TABLET. PO SCH (09:00)
[2020-12-22] MEDS: KETOCONAZOLE 2% SHAMPOO 120ML BOTTLE. TP SCH (10:48)
--- NOTE | 2020-12-22 13:01 | NUR ---
Nursing note: Pt has been pleasant and cooperative this shift. Upon initial assessment, pt denied having any SI. When giving pt his inhaler at lunchtime, pt pulled his plastic knife he received at lunch out from under his bed sheets and demonstrated that he was having thoughts of cutting his wrist. Pt states that he just wants to go back to the [facility]. Will make sure pt does not receive any more knives with his meals and continue to monitor.
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
[2020-12-22 15:55] VITALS: BP 150/86
--- NOTE | 2020-12-22 18:28 | NUR ---
Nursing note: Pt stated tonight that he was getting more depressed and wondered if he was on any antidepressants. Pt was given the information requested and then he asked to listen to Marcos Morales on the tamara. He later stopped me in the hallway and said the music has "cheered me up immeasurably!"
[2020-12-22] MEDS: CHOLECALCIFEROL (VITAMIN D3) 1,000 UNIT TABLET PO SCH (20:35)
--- NOTE | 2020-12-22 20:52 | PDOC ---
Exam Note: Travis Note: Please also refer to the separate dictated note~for this date of service dictated separately.~Patient seen individually. Discussed the patient with Nursing staff reviewed the chart.~Reviewed interim history and current functioning. Reviewed vital signs,~Labs/ Radiology~and current medications noted below. Continue current treatment with the changes noted in the dictated addendum note Assessment: Vital Signs/I&O: Vital Signs Date Time Temp Pulse Resp B/P (MAP) Pulse Ox O2 Delivery O2 Flow Rate FiO2 12/22/20 15:55 97.9 72 20 150/86 (107) 98 12/20/20 16:06 98.0 12/20/20 06:22 Room Air I & O 12/21/20 12/21/20 12/22/20 15:00 23:00 07:00 Intake Total 960 ml 360 ml Balance 960 ml 360 ml Labs: Laboratory Tests Test 12/22/20 05:30 White Blood Count 3.9 x10^3/uL (4.0-11.0) L Red Blood Count 4.28 x10^6/uL (4.30-5.70) L Hemoglobin 13.4 g/dL (13.0-17.5) Hematocrit 40.7 % (39.0-53.0) Mean Corpuscular Volume 95 fL (79-100) Mean Corpuscular Hemoglobin 31 pg (25-35) Mean Corpuscular Hemoglobin Concent 33 g/dL (31-37) Red Cell Distribution Width 14.7 % (11.5-14.5) H Platelet Count 108 x10^3/uL (140-400) L Neutrophils (%) (Auto) 60 % (31-73) Lymphocytes (%) (Auto) 33 % (24-48) Monocytes (%) (Auto) 6 % (0-9) Eosinophils (%) (Auto) 0 % (0-3) Basophils (%) (Auto) 0 % (0-3) Neutrophils # (Auto) 2.3 x10^3uL (1.8-7.7) Lymphocytes # (Auto) 1.3 x10^3/uL (1.0-4.8) Monocytes # (Auto) 0.2 x10^3/uL (0.0-1.1) Eosinophils # (Auto) 0.0 x10^3/uL (0.0-0.7) Basophils # (Auto) 0.0 x10^3/uL (0.0-0.2) Sodium Level 143 mmol/L (136-145) Potassium Level 4.0 mmol/L (3.5-5.1) Chloride Level 108 mmol/L (98-107) H Carbon Dioxide Level 28 mmol/L (21-32) Anion Gap 7 (6-14) Blood Urea Nitrogen 11 mg/dL (8-26) Creatinine 0.9 mg/dL (0.7-1.3) Estimated GFR (Cockcroft-Gault) 85.8 BUN/Creatinine Ratio 12 (6-20) Glucose Level 114 mg/dL (70-99) H Calcium Level 8.6 mg/dL (8.5-10.1) Total Bilirubin 0.3 mg/dL (0.2-1.0) Aspartate Amino Transferase (AST) 8 U/L (15-37) L Alanine Aminotransferase (ALT) 17 U/L (16-63) Alkaline Phosphatase 88 U/L (46-116) Total Protein 6.2 g/dL (6.4-8.2) L Albumin 2.9 g/dL (3.4-5.0) L Albumin/Globulin Ratio 0.9 (1.0-1.7) L Valproic Acid Level 71 mcg/mL (50-100) Valproic Acid Last Dose Date 12/21/2020 Valproic Acid Last Dose Time 2100 Current Medications: Meds: Laboratory Tests Test 12/22/20 05:30 White Blood Count 3.9 x10^3/uL Red Blood Count 4.28 x10^6/uL Hemoglobin 13.4 g/dL Hematocrit 40.7 % Mean Corpuscular Volume 95 fL Mean Corpuscular Hemoglobin 31 pg Mean Corpuscular Hemoglobin Concent 33 g/dL Red Cell Distribution Width 14.7 % Platelet Count 108 x10^3/uL Neutrophils (%) (Auto) 60 % Lymphocytes (%) (Auto) 33 % Monocytes (%) (Auto) 6 % Eosinophils (%) (Auto) 0 % Basophils (%) (Auto) 0 % Neutrophils # (Auto) 2.3 x10^3uL Lymphocytes # (Auto) 1.3 x10^3/uL Monocytes # (Auto) 0.2 x10^3/uL Eosinophils # (Auto) 0.0 x10^3/uL Basophils # (Auto) 0.0 x10^3/uL Sodium Level 143 mmol/L Potassium Level 4.0 mmol/L Chloride Level 108 mmol/L Carbon Dioxide Level 28 mmol/L Anion Gap 7 Blood Urea Nitrogen 11 mg/dL Creatinine 0.9 mg/dL Estimated GFR (Cockcroft-Gault) 85.8 BUN/Creatinine Ratio 12 Glucose Level 114 mg/dL Calcium Level 8.6 mg/dL Total Bilirubin 0.3 mg/dL Aspartate Amino Transf (AST/SGOT) 8 U/L Alanine Aminotransferase (ALT/SGPT) 17 U/L Alkaline Phosphatase 88 U/L Total Protein 6.2 g/dL Albumin 2.9 g/dL Albumin/Globulin Ratio 0.9 Valproic Acid (Depakene) Level 71 mcg/mL Valproic Acid Last Dose Date 12/21/2020 Valproic Acid Last Dose Time 2100 Current Medications Medications (Trade) Dose Ordered Sig/Manpreet Route PRN Reason Start Time Stop Time Status Last Admin Dose Admin Acetaminophen (Tylenol) 650 mg PRN Q6HRS PRN PO MILD PAIN / TEMP > 100.3'F 12/18/20 22:15 12/18/20 23:22 DC Multi-Ingredient Ointment (Analgesic [place]) 1 deanna PRN QID PRN TP MUSCLE PAIN 12/18/20 22:15 Al Hydroxide/Mg Hydroxide (Mylanta Plus Xs) 15 ml PRN AFTMEALHC PRN PO DYSPEPSIA 12/18/20 22:15 Magnesium Hydroxide (Milk Of Magnesia) 2,400 mg PRN QHS PRN PO 1ST CHOICE CONSTIPATION 12/18/20 22:15 Acetaminophen (Tylenol) 650 mg PRN Q6HRS PRN PO MILD PAIN / TEMP > 100.3'F 12/18/20 23:15 Aspirin (Aspirin Chewable) 81 mg DAILY PO 12/19/20 09:00 12/22/20 05:27 Bisacodyl (Dulcolax Supp) 10 mg PRN DAILY PRN RC CONSTIPATION 12/18/20 23:15 Fluoxetine HCl (PROzac) 20 mg DAILY PO 12/19/20 09:00 12/22/20 05:27 Ketoconazole (Nizoral 2% Shampoo) 1 deanna QTUTHSA TP 12/19/20 16:00 12/21/20 16:19 DC Quetiapine Fumarate (SEROquel) 25 mg DAILY PO 12/19/20 09:00 12/20/20 17:39 DC 12/20/20 09:45 Quetiapine Fumarate (SEROquel) 50 mg QHS PO 12/19/20 21:00 12/20/20 17:39 DC 12/19/20 20:40 Albuterol Sulfate (Ventolin) 2.5 mg RTQID NEB 12/19/20 08:00 12/19/20 11:21 DC Docusate Sodium (Colace Solution) 50 mg BID PO 12/19/20 09:00 12/22/20 20:36 Pantoprazole Sodium (Protonix) 40 mg DAILYAC PO 12/19/20 07:30 12/22/20 05:27 Levetiracetam (Keppra) 1,000 mg BID PO 12/19/20 09:00 12/22/20 20:35 [place] Carbonate 300 mg BID PO 12/19/20 09:00 12/22/20 20:36 Polyethylene Glycol (miraLAX) 17 gm DAILY PO 12/19/20 09:00 12/21/20 08:48 Valproic Acid (Depakene) 500 mg DAILY PO 12/19/20 09:00 12/19/20 18:01 DC 12/19/20 10:04 Vitamin D (Vitamin D3) 2,000 unit QHS PO 12/19/20 21:00 12/22/20 20:35 Olanzapine (ZyPREXA ZYDIS) 5 mg PRN Q2HR PRN PO PSYCHOSIS 12/18/20 23:30 12/18/20 23:30 Albuterol Sulfate (Ventolin Hfa Inhaler) 1 puff QID INH 12/19/20 13:00 12/22/20 20:39 Valproic Acid (Depakene) 750 mg QHS PO 12/19/20 21:00 12/22/20 20:35 Valproic Acid (Depakene) 500 mg 0900,1700 PO 12/20/20 09:00 12/22/20 17:32 Multi-Ingred Cream/Lotion/Oil/ Oint (Hydrocerin) 1 deanna BID TP 12/20/20 16:00 12/22/20 20:36 Risperidone (RisperDAL) 0.25 mg 0800 PO 12/21/20 08:00 12/22/20 17:58 DC 12/22/20 05:27 Risperidone (RisperDAL) 0.5 mg HS PO 12/20/20 21:00 12/22/20 17:58 DC 12/21/20 19:45 Ketoconazole (Nizoral 2% Shampoo) 1 deanna QODAY TP 12/22/20 12:00 12/22/20 10:48 Risperidone (RisperDAL) 1.5 mg 1X ONCE PO 12/22/20 21:00 12/22/20 21:01 12/22/20 20:36 Risperidone (RisperDAL) 1 mg BID PO 12/22/20 09:00 12/22/20 18:21 DC Risperidone (RisperDAL) 1 mg BID PO 12/23/20 09:00 Current Medications Medications (Trade) Dose Ordered Sig/Manpreet Route PRN Reason Start Time Stop Time Status Last Admin Dose Admin Ketoconazole (Nizoral 2% Shampoo) 1 deanna QODAY TP 12/22/20 12:00 12/22/20 10:48 Risperidone (RisperDAL) 1.5 mg 1X ONCE PO 12/22/20 21:00 12/22/20 21:01 12/22/20 20:36 I have reviewed the current psychotropics carefully including drug interactions. Risk benefit ratio favors no change other than as noted in my dictated progress note. Diagnosis: Problems: (1) Schizoaffective disorder, bipolar type (2) Anxiety disorder, unspecified (3) Bipolar disorder, curr episode mixed, severe, with psychotic features (4) Major depressive disorder with psychotic features ROSI OSORIO MD Dec 22, 2020 20:52
[2020-12-22] MEDS ORDERED: risperiDONE 0.5 MG TABLET. PO ONE (21:00)
--- NOTE | 2020-12-23 01:26 | NUR ---
Nursing Note Pt in [place] during assessment. Pleasant calm and cooperative. No complaints.
[2020-12-23] MEDS: DOCUSATE 100 MG/10 ML SOLUTION. PO SCH ×2 (04:47→20:44)
[2020-12-23] MEDS: PANTOPRAZOLE 40 MG TABLET. PO SCH (04:48)
[2020-12-23] MEDS: levETIRAcetam 500 MG TABLET PO SCH ×2 (04:48→20:44)
[2020-12-23] MEDS: POLYETHYLENE GLYCOL 3350 17 GM PACKET. PO SCH (04:48)
[2020-12-23] MEDS: FLUoxetine HCL 20 MG CAPSULE PO SCH (04:48)
[2020-12-23] MEDS: MINERAL OIL/PETROLATUM TOPICAL CREAM 113GM JAR. TP SCH ×2 (04:48→20:46)
[2020-12-23] MEDS: ASPIRIN CHEWABLE 81 MG TABLET. PO SCH (04:48)
[2020-12-23] MEDS: LITHIUM CARBONATE 300 MG TABLET PO SCH ×2 (04:48→20:44)
[2020-12-23] MEDS: VALPROIC ACID 250 MG CAPSULE. PO SCH ×3 (04:48→20:44)
[2020-12-23] MEDS: risperiDONE 1 MG TABLET. PO SCH ×2 (04:49→20:44)
[2020-12-23] MEDS: ALBUTEROL SULFATE 8GM INHALER. INH SCH ×4 (04:50→20:45)
[2020-12-23 06:25] VITALS: BP 155/74
--- NOTE | 2020-12-23 07:14 | PDOC ---
Exam Note: Travis Note: This note is a late entry for 12/21/2020 covers elements not covered in my initial note. Subjective: The patient was seen face to face in the morning of 12/21/2020 for a treatment team meeting with Eulalia Miranda, Cristina Sandoval and Nettie (community mental health social worker), Milagros Gaming, activity therapy and Bowen MARK, reviewed the chart and reviewed the patients history at length. [facility] will get [facility] from [facility] as [facility]. The patient just slept 8 hours previous night. Previous evening he was aggressive, was strange per nursing report. Appetite is 80%. He has had some swallowing problems. We will defer to Dr. Brar. Review of Systems: No CV, , pulmonary, eye, ENT system symptoms on review. Gait unsteady in wheelchair. Mental Status Exam: The patient is reasonably oriented. Speech has some latency, coherent. Abstraction is fair. Computation impaired. Language function is intact, somewhat paranoid, distractible. No active suicidal or homicidal ideation. Laboratory Data: Reviewed. Impression: Schizoaffective disorder bipolar type, mixed with psychotic fea tures. Anxiety disorder unspecified. Impulse control disorder unspecified. Plan: Continue current psychotropics but if psychotic symptoms persist, we may need to increase the Risperdal currently 0.5 mg h.s. Assessment: Vital Signs/I&O: Vital Signs Date Time Temp Pulse Resp B/P (MAP) Pulse Ox O2 Delivery O2 Flow Rate FiO2 12/23/20 06:25 97.7 78 16 155/74 (101) 99 12/20/20 16:06 98.0 12/20/20 06:22 Room Air I & O 12/22/20 12/22/20 12/23/20 15:00 23:00 07:00 Intake Total 480 ml 360 ml Balance 480 ml 360 ml Current Medications: Meds: Current Medications Medications (Trade) Dose Ordered Sig/Manpreet Route PRN Reason Start Time Stop Time Status Last Admin Dose Admin Acetaminophen (Tylenol) 650 mg PRN Q6HRS PRN PO MILD PAIN / TEMP > 100.3'F 12/18/20 22:15 12/18/20 23:22 DC Multi-Ingredient Ointment (Analgesic [place]) 1 deanna PRN QID PRN TP MUSCLE PAIN 12/18/20 22:15 Al Hydroxide/Mg Hydroxide (Mylanta Plus Xs) 15 ml PRN AFTMEALHC PRN PO DYSPEPSIA 12/18/20 22:15 Magnesium Hydroxide (Milk Of Magnesia) 2,400 mg PRN QHS PRN PO 1ST CHOICE CONSTIPATION 12/18/20 22:15 Acetaminophen (Tylenol) 650 mg PRN Q6HRS PRN PO MILD PAIN / TEMP > 100.3'F 12/18/20 23:15 Aspirin (Aspirin Chewable) 81 mg DAILY PO 12/19/20 09:00 12/23/20 04:48 Bisacodyl (Dulcolax Supp) 10 mg PRN DAILY PRN RC CONSTIPATION 12/18/20 23:15 Fluoxetine HCl (PROzac) 20 mg DAILY PO 12/19/20 09:00 12/23/20 04:48 Ketoconazole (Nizoral 2% Shampoo) 1 deanna QTUTHSA TP 12/19/20 16:00 12/21/20 16:19 DC Quetiapine Fumarate (SEROquel) 25 mg DAILY PO 12/19/20 09:00 12/20/20 17:39 DC 12/20/20 09:45 Quetiapine Fumarate (SEROquel) 50 mg QHS PO 12/19/20 21:00 12/20/20 17:39 DC 12/19/20 20:40 Albuterol Sulfate (Ventolin) 2.5 mg RTQID NEB 12/19/20 08:00 12/19/20 11:21 DC Docusate Sodium (Colace Solution) 50 mg BID PO 12/19/20 09:00 12/23/20 04:47 Pantoprazole Sodium (Protonix) 40 mg DAILYAC PO 12/19/20 07:30 12/23/20 04:48 Levetiracetam (Keppra) 1,000 mg BID PO 12/19/20 09:00 12/23/20 04:48 [place] Carbonate 300 mg BID PO 12/19/20 09:00 12/23/20 04:48 Polyethylene Glycol (miraLAX) 17 gm DAILY PO 12/19/20 09:00 12/23/20 04:48 Valproic Acid (Depakene) 500 mg DAILY PO 12/19/20 09:00 12/19/20 18:01 DC 12/19/20 10:04 Vitamin D (Vitamin D3) 2,000 unit QHS PO 12/19/20 21:00 12/22/20 20:35 Olanzapine (ZyPREXA ZYDIS) 5 mg PRN Q2HR PRN PO PSYCHOSIS 12/18/20 23:30 12/18/20 23:30 Albuterol Sulfate (Ventolin Hfa Inhaler) 1 puff QID INH 12/19/20 13:00 12/22/20 20:39 Valproic Acid (Depakene) 750 mg QHS PO 12/19/20 21:00 12/22/20 20:35 Valproic Acid (Depakene) 500 mg 0900,1700 PO 12/20/20 09:00 12/23/20 04:48 Multi-Ingred Cream/Lotion/Oil/ Oint (Hydrocerin) 1 deanna BID TP 12/20/20 16:00 12/23/20 04:48 Risperidone (RisperDAL) 0.25 mg 0800 PO 12/21/20 08:00 12/22/20 17:58 DC 12/22/20 05:27 Risperidone (RisperDAL) 0.5 mg HS PO 12/20/20 21:00 12/22/20 17:58 DC 12/21/20 19:45 Ketoconazole (Nizoral 2% Shampoo) 1 deanna QODAY TP 12/22/20 12:00 12/22/20 10:48 Risperidone (RisperDAL) 1.5 mg 1X ONCE PO 12/22/20 21:00 12/22/20 21:01 DC 12/22/20 20:36 Risperidone (RisperDAL) 1 mg BID PO 12/22/20 09:00 12/22/20 18:21 DC Risperidone (RisperDAL) 1 mg BID PO 12/23/20 09:00 12/23/20 04:49 Current Medications Medications (Trade) Dose Ordered Sig/Manpreet Route PRN Reason Start Time Stop Time Status Last Admin Dose Admin Ketoconazole (Nizoral 2% Shampoo) 1 deanna QODAY TP 12/22/20 12:00 12/22/20 10:48 Risperidone (RisperDAL) 1.5 mg 1X ONCE PO 12/22/20 21:00 12/22/20 21:01 DC 12/22/20 20:36 Risperidone (RisperDAL) 1 mg BID PO 12/23/20 09:00 12/23/20 04:49 I have reviewed the current psychotropics carefully including drug interactions. Risk benefit ratio favors no change other than as noted in my dictated progress note. Diagnosis: Problems: (1) Schizoaffective disorder, bipolar type (2) Anxiety disorder, unspecified (3) Bipolar disorder, curr episode mixed, severe, with psychotic features (4) Major depressive disorder with psychotic features ROSI OSORIO MD Dec 23, 2020 07:14
--- NOTE | 2020-12-23 07:38 | PDOC ---
Exam Note: Travis Note: This note is a late entry for 12/21/2020 covers elements not covered in my initial note. Subjective: The patient was seen face to face in the evening of 12/22/2020 with Jossie MARK, discussed and reviewed the chart. The patient slept 6-1/4 hours previous night. He denied any suicidal or homicidal ideation in the morning but around lunch time when the nursing staff was assessing him he pulled out a plastic knife he had brought from the kitchen and made a gesture like he was going to cut his wrist. He remains paranoid, somewhat suspicious. Nursing staff had called me earlier as an emergency. [place] records are about 500 pages and we have asked them to send just the medication list. Review of Systems: No CV, , pulmonary, eye, ENT system symptoms on review. Ambulation impaired in wheelchair. Mental Status Exam: The patient is reasonably oriented. He is paranoid, suspicious but again denies suicidal or homicidal ideation. Speech has some latency, coherent. Abstraction is fair. Computation impaired. Language function is intact. Laboratory Data: Reviewed. Valproic acid level is therapeutic at 71. Impression: Schizoaffective disorder bipolar type, mixed with psychotic features. Anxiety disorder unspecified. Impulse control disorder unspecified. Plan: Continue current psychotropics. [place] and Depakote at current dosage, level is therapeutic. Increase Risperdal from total of 0.75 mg a day to 1.5 mg h.s. tonight and starting tomorrow 1 mg twice a day. Adjust further as clinically indicated. Assessment: Vital Signs/I&O: Vital Signs Date Time Temp Pulse Resp B/P (MAP) Pulse Ox O2 Delivery O2 Flow Rate FiO2 12/23/20 06:25 97.7 78 16 155/74 (101) 99 12/20/20 16:06 98.0 12/20/20 06:22 Room Air I & O 12/22/20 12/22/20 12/23/20 15:00 23:00 07:00 Intake Total 480 ml 360 ml Balance 480 ml 360 ml Current Medications: Meds: Current Medications Medications (Trade) Dose Ordered Sig/Manpreet Route PRN Reason Start Time Stop Time Status Last Admin Dose Admin Acetaminophen (Tylenol) 650 mg PRN Q6HRS PRN PO MILD PAIN / TEMP > 100.3'F 12/18/20 22:15 12/18/20 23:22 DC Multi-Ingredient Ointment (Analgesic [place]) 1 deanna PRN QID PRN TP MUSCLE PAIN 12/18/20 22:15 Al Hydroxide/Mg Hydroxide (Mylanta Plus Xs) 15 ml PRN AFTMEALHC PRN PO DYSPEPSIA 12/18/20 22:15 Magnesium Hydroxide (Milk Of Magnesia) 2,400 mg PRN QHS PRN PO 1ST CHOICE CONSTIPATION 12/18/20 22:15 Acetaminophen (Tylenol) 650 mg PRN Q6HRS PRN PO MILD PAIN / TEMP > 100.3'F 12/18/20 23:15 Aspirin (Aspirin Chewable) 81 mg DAILY PO 12/19/20 09:00 12/23/20 04:48 Bisacodyl (Dulcolax Supp) 10 mg PRN DAILY PRN RC CONSTIPATION 12/18/20 23:15 Fluoxetine HCl (PROzac) 20 mg DAILY PO 12/19/20 09:00 12/23/20 04:48 Ketoconazole (Nizoral 2% Shampoo) 1 deanna QTUTHSA TP 12/19/20 16:00 12/21/20 16:19 DC Quetiapine Fumarate (SEROquel) 25 mg DAILY PO 12/19/20 09:00 12/20/20 17:39 DC 12/20/20 09:45 Quetiapine Fumarate (SEROquel) 50 mg QHS PO 12/19/20 21:00 12/20/20 17:39 DC 12/19/20 20:40 Albuterol Sulfate (Ventolin) 2.5 mg RTQID NEB 12/19/20 08:00 12/19/20 11:21 DC Docusate Sodium (Colace Solution) 50 mg BID PO 12/19/20 09:00 12/23/20 04:47 Pantoprazole Sodium (Protonix) 40 mg DAILYAC PO 12/19/20 07:30 12/23/20 04:48 Levetiracetam (Keppra) 1,000 mg BID PO 12/19/20 09:00 12/23/20 04:48 [place] Carbonate 300 mg BID PO 12/19/20 09:00 12/23/20 04:48 Polyethylene Glycol (miraLAX) 17 gm DAILY PO 12/19/20 09:00 12/23/20 04:48 Valproic Acid (Depakene) 500 mg DAILY PO 12/19/20 09:00 12/19/20 18:01 DC 12/19/20 10:04 Vitamin D (Vitamin D3) 2,000 unit QHS PO 12/19/20 21:00 12/22/20 20:35 Olanzapine (ZyPREXA ZYDIS) 5 mg PRN Q2HR PRN PO PSYCHOSIS 12/18/20 23:30 12/18/20 23:30 Albuterol Sulfate (Ventolin Hfa Inhaler) 1 puff QID INH 12/19/20 13:00 12/22/20 20:39 Valproic Acid (Depakene) 750 mg QHS PO 12/19/20 21:00 12/22/20 20:35 Valproic Acid (Depakene) 500 mg 0900,1700 PO 12/20/20 09:00 12/23/20 04:48 Multi-Ingred Cream/Lotion/Oil/ Oint (Hydrocerin) 1 deanna BID TP 12/20/20 16:00 12/23/20 04:48 Risperidone (RisperDAL) 0.25 mg 0800 PO 12/21/20 08:00 12/22/20 17:58 DC 12/22/20 05:27 Risperidone (RisperDAL) 0.5 mg HS PO 12/20/20 21:00 12/22/20 17:58 DC 12/21/20 19:45 Ketoconazole (Nizoral 2% Shampoo) 1 deanna QODAY TP 12/22/20 12:00 12/22/20 10:48 Risperidone (RisperDAL) 1.5 mg 1X ONCE PO 12/22/20 21:00 12/22/20 21:01 DC 12/22/20 20:36 Risperidone (RisperDAL) 1 mg BID PO 12/22/20 09:00 12/22/20 18:21 DC Risperidone (RisperDAL) 1 mg BID PO 12/23/20 09:00 12/23/20 04:49 Current Medications Medications (Trade) Dose Ordered Sig/Manpreet Route PRN Reason Start Time Stop Time Status Last Admin Dose Admin Ketoconazole (Nizoral 2% Shampoo) 1 deanna QODAY TP 12/22/20 12:00 12/22/20 10:48 Risperidone (RisperDAL) 1.5 mg 1X ONCE PO 12/22/20 21:00 12/22/20 21:01 DC 12/22/20 20:36 Risperidone (RisperDAL) 1 mg BID PO 12/23/20 09:00 12/23/20 04:49 I have reviewed the current psychotropics carefully including drug interactions. Risk benefit ratio favors no change other than as noted in my dictated progress note. Diagnosis: Problems: (1) Schizoaffective disorder, bipolar type (2) Anxiety disorder, unspecified (3) Bipolar disorder, curr episode mixed, severe, with psychotic features (4) Major depressive disorder with psychotic features ROSI OSORIO MD Dec 23, 2020 07:38
[2020-12-23 15:54] VITALS: BP 130/80
[2020-12-23] MEDS: CHOLECALCIFEROL (VITAMIN D3) 1,000 UNIT TABLET PO SCH (20:44)
--- NOTE | 2020-12-23 21:02 | PDOC ---
Exam Note: Travis Note: Please also refer to the separate dictated note~for this date of service dictated separately.~Patient seen individually. Discussed the patient with Nursing staff reviewed the chart.~Reviewed interim history and current functioning. Reviewed vital signs,~Labs/ Radiology~and current medications noted below. Continue current treatment with the changes noted in the dictated addendum note Assessment: Vital Signs/I&O: Vital Signs Date Time Temp Pulse Resp B/P (MAP) Pulse Ox O2 Delivery O2 Flow Rate FiO2 12/23/20 15:54 97.8 84 16 130/80 (97) 100 12/20/20 16:06 98.0 12/20/20 06:22 Room Air I & O 12/22/20 12/22/20 12/23/20 15:00 23:00 07:00 Intake Total 480 ml 360 ml Balance 480 ml 360 ml Current Medications: Meds: Current Medications Medications (Trade) Dose Ordered Sig/Manpreet Route PRN Reason Start Time Stop Time Status Last Admin Dose Admin Acetaminophen (Tylenol) 650 mg PRN Q6HRS PRN PO MILD PAIN / TEMP > 100.3'F 12/18/20 22:15 12/18/20 23:22 DC Multi-Ingredient Ointment (Analgesic [place]) 1 deanna PRN QID PRN TP MUSCLE PAIN 12/18/20 22:15 Al Hydroxide/Mg Hydroxide (Mylanta Plus Xs) 15 ml PRN AFTMEALHC PRN PO DYSPEPSIA 12/18/20 22:15 Magnesium Hydroxide (Milk Of Magnesia) 2,400 mg PRN QHS PRN PO 1ST CHOICE CONSTIPATION 12/18/20 22:15 Acetaminophen (Tylenol) 650 mg PRN Q6HRS PRN PO MILD PAIN / TEMP > 100.3'F 12/18/20 23:15 Aspirin (Aspirin Chewable) 81 mg DAILY PO 12/19/20 09:00 12/23/20 04:48 Bisacodyl (Dulcolax Supp) 10 mg PRN DAILY PRN RC CONSTIPATION 12/18/20 23:15 Fluoxetine HCl (PROzac) 20 mg DAILY PO 12/19/20 09:00 12/23/20 04:48 Ketoconazole (Nizoral 2% Shampoo) 1 deanna QTUTHSA TP 12/19/20 16:00 12/21/20 16:19 DC Quetiapine Fumarate (SEROquel) 25 mg DAILY PO 12/19/20 09:00 12/20/20 17:39 DC 12/20/20 09:45 Quetiapine Fumarate (SEROquel) 50 mg QHS PO 12/19/20 21:00 12/20/20 17:39 DC 12/19/20 20:40 Albuterol Sulfate (Ventolin) 2.5 mg RTQID NEB 12/19/20 08:00 12/19/20 11:21 DC Docusate Sodium (Colace Solution) 50 mg BID PO 12/19/20 09:00 12/23/20 20:44 Pantoprazole Sodium (Protonix) 40 mg DAILYAC PO 12/19/20 07:30 12/23/20 04:48 Levetiracetam (Keppra) 1,000 mg BID PO 12/19/20 09:00 12/23/20 20:44 [place] Carbonate 300 mg BID PO 12/19/20 09:00 12/23/20 20:44 Polyethylene Glycol (miraLAX) 17 gm DAILY PO 12/19/20 09:00 12/23/20 04:48 Valproic Acid (Depakene) 500 mg DAILY PO 12/19/20 09:00 12/19/20 18:01 DC 12/19/20 10:04 Vitamin D (Vitamin D3) 2,000 unit QHS PO 12/19/20 21:00 12/23/20 20:44 Olanzapine (ZyPREXA ZYDIS) 5 mg PRN Q2HR PRN PO PSYCHOSIS 12/18/20 23:30 12/18/20 23:30 Albuterol Sulfate (Ventolin Hfa Inhaler) 1 puff QID INH 12/19/20 13:00 12/23/20 20:45 Valproic Acid (Depakene) 750 mg QHS PO 12/19/20 21:00 12/23/20 20:44 Valproic Acid (Depakene) 500 mg 0900,1700 PO 12/20/20 09:00 12/23/20 17:14 Multi-Ingred Cream/Lotion/Oil/ Oint (Hydrocerin) 1 deanna BID TP 12/20/20 16:00 12/23/20 20:46 Risperidone (RisperDAL) 0.25 mg 0800 PO 12/21/20 08:00 12/22/20 17:58 DC 12/22/20 05:27 Risperidone (RisperDAL) 0.5 mg HS PO 12/20/20 21:00 12/22/20 17:58 DC 12/21/20 19:45 Ketoconazole (Nizoral 2% Shampoo) 1 deanna QODAY TP 12/22/20 12:00 12/22/20 10:48 Risperidone (RisperDAL) 1.5 mg 1X ONCE PO 12/22/20 21:00 12/22/20 21:01 DC 12/22/20 20:36 Risperidone (RisperDAL) 1 mg BID PO 12/22/20 09:00 12/22/20 18:21 DC Risperidone (RisperDAL) 1 mg BID PO 12/23/20 09:00 12/23/20 20:44 Current Medications Medications (Trade) Dose Ordered Sig/Manpreet Route PRN Reason Start Time Stop Time Status Last Admin Dose Admin Risperidone (RisperDAL) 1 mg BID PO 12/23/20 09:00 12/23/20 20:44 I have reviewed the current psychotropics carefully including drug interactions. Risk benefit ratio favors no change other than as noted in my dictated progress note. Diagnosis: Problems: (1) Schizoaffective disorder, bipolar type (2) Anxiety disorder, unspecified (3) Bipolar disorder, curr episode mixed, severe, with psychotic features (4) Major depressive disorder with psychotic features ROSI OSORIO MD Dec 23, 2020 21:02
--- NOTE | 2020-12-23 23:54 | NUR ---
Pt located in his room tonight reading the bible. Pt pleasant and interactive. Compliant with whole medications given with honey thick liquid. Pt had a long conversation with his brother and was anxious later in the evening d/t the fact that his brother said that he was going to go bankrupt. Pt requested numerous times to speak with social work on Friday. Pt denied SI, but stated he was depressed. PRN Zyprexa administered at midnight per pt request for his anxiety.
[2020-12-24 06:01] VITALS: BP 160/74
--- NOTE | 2020-12-24 08:06 | PDOC ---
Exam Note: Travis Note: This note is a late entry for 12/21/2020 covers elements not covered in my initial note. Subjective: The patient was seen on telehealth rounds in the evening of 12/23/2020 with Gildardo MARK, discussed and reviewed the chart. The patient slept 6-3/4 hours previous night. Overall the patient has done better, more c ooperative. He slept in this morning, woke up around 10 a.m. He has denied any suicidal or homicidal ideation. In the evening on telehealth rounds, he was busy on a telephone call, not being interrupted. My observations were accomplished from nursing assessment reports and my overall assessment. Review of Systems: No CV, , pulmonary, eye, ENT system symptoms on review. Ambulation impaired with walker. Mental Status Exam: The patient is reasonably oriented. Speech is coherent, has some latency, coherent. Abstraction is fair. Computation impaired. Language function is intact. Mood and affect less labile, less paranoid. Laboratory Data: Reviewed. Impression: Schizoaffective disorder bipolar type, mixed with psychotic features. Anxiety disorder unspecified. Impulse control disorder unspecified. Plan: Continue Risperdal 1 b.i.d., Prozac 5 mg a day, lithium 300 mg b.i.d., level therapeutic at 0.7. Valproic acid level is 500 mg b.i.d and 750 mg h.s. Level therapeutic at 71, Zyprexa p.r.n. Rest unchanged for now. Assessment: Vital Signs/I&O: Vital Signs Date Time Temp Pulse Resp B/P (MAP) Pulse Ox O2 Delivery O2 Flow Rate FiO2 12/24/20 06:01 97.4 58 18 160/74 (102) 97 12/20/20 16:06 98.0 12/20/20 06:22 Room Air I & O 12/23/20 12/23/20 12/24/20 15:00 23:00 07:00 Intake Total 840 ml 720 ml Balance 840 ml 720 ml Current Medications: Meds: Current Medications Medications (Trade) Dose Ordered Sig/Manpreet Route PRN Reason Start Time Stop Time Status Last Admin Dose Admin Acetaminophen (Tylenol) 650 mg PRN Q6HRS PRN PO MILD PAIN / TEMP > 100.3'F 12/18/20 22:15 12/18/20 23:22 DC Multi-Ingredient Ointment (Analgesic [place]) 1 deanna PRN QID PRN TP MUSCLE PAIN 12/18/20 22:15 Al Hydroxide/Mg Hydroxide (Mylanta Plus Xs) 15 ml PRN AFTMEALHC PRN PO DYSPEPSIA 12/18/20 22:15 Magnesium Hydroxide (Milk Of Magnesia) 2,400 mg PRN QHS PRN PO 1ST CHOICE CONSTIPATION 12/18/20 22:15 Acetaminophen (Tylenol) 650 mg PRN Q6HRS PRN PO MILD PAIN / TEMP > 100.3'F 12/18/20 23:15 Aspirin (Aspirin Chewable) 81 mg DAILY PO 12/19/20 09:00 12/23/20 04:48 Bisacodyl (Dulcolax Supp) 10 mg PRN DAILY PRN RC CONSTIPATION 12/18/20 23:15 Fluoxetine HCl (PROzac) 20 mg DAILY PO 12/19/20 09:00 12/23/20 04:48 Ketoconazole (Nizoral 2% Shampoo) 1 deanna QTUTHSA TP 12/19/20 16:00 12/21/20 16:19 DC Quetiapine Fumarate (SEROquel) 25 mg DAILY PO 12/19/20 09:00 12/20/20 17:39 DC 12/20/20 09:45 Quetiapine Fumarate (SEROquel) 50 mg QHS PO 12/19/20 21:00 12/20/20 17:39 DC 12/19/20 20:40 Albuterol Sulfate (Ventolin) 2.5 mg RTQID NEB 12/19/20 08:00 12/19/20 11:21 DC Docusate Sodium (Colace Solution) 50 mg BID PO 12/19/20 09:00 12/23/20 20:44 Pantoprazole Sodium (Protonix) 40 mg DAILYAC PO 12/19/20 07:30 12/23/20 04:48 Levetiracetam (Keppra) 1,000 mg BID PO 12/19/20 09:00 12/23/20 20:44 [place] Carbonate 300 mg BID PO 12/19/20 09:00 12/23/20 20:44 Polyethylene Glycol (miraLAX) 17 gm DAILY PO 12/19/20 09:00 12/23/20 04:48 Valproic Acid (Depakene) 500 mg DAILY PO 12/19/20 09:00 12/19/20 18:01 DC 12/19/20 10:04 Vitamin D (Vitamin D3) 2,000 unit QHS PO 12/19/20 21:00 12/23/20 20:44 Olanzapine (ZyPREXA ZYDIS) 5 mg PRN Q2HR PRN PO PSYCHOSIS 12/18/20 23:30 12/23/20 23:54 Albuterol Sulfate (Ventolin Hfa Inhaler) 1 puff QID INH 12/19/20 13:00 12/23/20 20:45 Valproic Acid (Depakene) 750 mg QHS PO 12/19/20 21:00 12/23/20 20:44 Valproic Acid (Depakene) 500 mg 0900,1700 PO 12/20/20 09:00 12/23/20 17:14 Multi-Ingred Cream/Lotion/Oil/ Oint (Hydrocerin) 1 deanna BID TP 12/20/20 16:00 12/23/20 20:46 Risperidone (RisperDAL) 0.25 mg 0800 PO 12/21/20 08:00 12/22/20 17:58 DC 12/22/20 05:27 Risperidone (RisperDAL) 0.5 mg HS PO 12/20/20 21:00 12/22/20 17:58 DC 12/21/20 19:45 Ketoconazole (Nizoral 2% Shampoo) 1 deanna QODAY TP 12/22/20 12:00 12/22/20 10:48 Risperidone (RisperDAL) 1.5 mg 1X ONCE PO 12/22/20 21:00 12/22/20 21:01 DC 12/22/20 20:36 Risperidone (RisperDAL) 1 mg BID PO 12/22/20 09:00 12/22/20 18:21 DC Risperidone (RisperDAL) 1 mg BID PO 12/23/20 09:00 12/23/20 20:44 Current Medications Medications (Trade) Dose Ordered Sig/Manpreet Route PRN Reason Start Time Stop Time Status Last Admin Dose Admin Risperidone (RisperDAL) 1 mg BID PO 12/23/20 09:00 12/23/20 20:44 I have reviewed the current psychotropics carefully including drug interactions. Risk benefit ratio favors no change other than as noted in my dictated progress note. Diagnosis: Problems: (1) Schizoaffective disorder, bipolar type (2) Anxiety disorder, unspecified (3) Bipolar disorder, curr episode mixed, severe, with psychotic features (4) Major depressive disorder with psychotic features ROSI OSORIO MD Dec 24, 2020 08:06
[2020-12-24] MEDS: ASPIRIN CHEWABLE 81 MG TABLET. PO SCH (08:30)
[2020-12-24] MEDS: DOCUSATE 100 MG/10 ML SOLUTION. PO SCH ×2 (08:30→20:25)
[2020-12-24] MEDS: VALPROIC ACID 250 MG CAPSULE. PO SCH ×3 (08:30→20:24)
[2020-12-24] MEDS: LITHIUM CARBONATE 300 MG TABLET PO SCH ×2 (08:30→20:24)
[2020-12-24] MEDS: PANTOPRAZOLE 40 MG TABLET. PO SCH (08:31)
[2020-12-24] MEDS: POLYETHYLENE GLYCOL 3350 17 GM PACKET. PO SCH (08:31)
[2020-12-24] MEDS: levETIRAcetam 500 MG TABLET PO SCH ×2 (08:31→20:25)
[2020-12-24] MEDS: FLUoxetine HCL 20 MG CAPSULE PO SCH (08:31)
[2020-12-24] MEDS: risperiDONE 1 MG TABLET. PO SCH ×2 (08:31→20:25)
[2020-12-24] MEDS: MINERAL OIL/PETROLATUM TOPICAL CREAM 113GM JAR. TP SCH ×2 (08:33→20:26)
[2020-12-24] MEDS: ALBUTEROL SULFATE 8GM INHALER. INH SCH ×4 (08:33→20:26)
[2020-12-24] MEDS: KETOCONAZOLE 2% SHAMPOO 120ML BOTTLE. TP SCH (08:34)
--- NOTE | 2020-12-24 13:09 | NUR ---
Nursing Note Pt pleasant and cooperative, withdrawn somewhat, denies pain or other complaints.
[2020-12-24 16:00] VITALS: BP 128/74
--- NOTE | 2020-12-24 17:06 | PN ---
DATE: 12/24/2020 SUBJECTIVE: The patient denies recurrent seizure, headaches or visual disturbances. He is very cooperative. He denies any hallucination or suicidal ideation. He denies any new medical or neurological complaints or seizure-like activities. OBJECTIVE: GENERAL: Well-developed, well-nourished male, not in acute distress. VITAL SIGNS: Blood pressure 128/74, respiratory rate 20, pulse is 80 and regular, temperature 97.1, oxygen saturation is 97% on room air. HEENT: Normocephalic, atraumatic, otherwise unremarkable. NECK: Supple. Negative for carotid bruit, lymphadenopathy or thyromegaly. LUNGS: Clear to A and P. CARDIOVASCULAR: Regular rate and rhythm, normal S1, S2. There is no S3, S4 or murmurs. ABDOMEN: Soft. Bowel sounds positive. EXTREMITIES: Negative for cyanosis, clubbing or pitting edema. NEUROLOGIC EXAM: The patient is alert and oriented to himself and place. His speech is more fluent. There is no language dysfunction. Memory, judgment, and abstracting thinking are fair. The patient denies hallucination or delusion. Cranial nerves are intact. No focal motor or sensory deficits. Deep tendon reflexes were symmetric and hypoactive with absent Achilles responses. Gait: The patient uses a walker for ambulation. However, he did make few steps in the room without assistance. IMPRESSION: 1. Possible seizure-like activities. No recurrent seizures since yesterday; however, the etiology of seizure disorder is uncertain and he has been on levetiracetam -- Keppra and Depakote as well. 2. Multiple medical and psychiatric care as outlined before. RECOMMENDATIONS: 1. We will continue with current medical and psychiatric care. 2. Await for the medical record from [facility] in [place]. M Brett OJEDA MD DR: NOHELIA/thony JOB#: [id number] / [id number]
[2020-12-24] MEDS: CHOLECALCIFEROL (VITAMIN D3) 1,000 UNIT TABLET PO SCH (20:25)
--- NOTE | 2020-12-24 20:30 | CONS ---
DATE OF CONSULTATION: 12/23/2020 NEUROLOGICAL CONSULTATION REASON FOR CONSULTATION: Seizure-like activities. HISTORY OF PRESENT ILLNESS: This is a 60-year-old right-handed male, who was admitted on 12/18/2020 on account of hallucinations, suicidal and homicidal ideations. He was transferred from a [facility] to [facility] for his behavior disturbances, agitations, depressions and visual hallucinations. Neuro consult was requested because the patient had spells described by nursing staff as possible seizure-like activities including tremors and confusion. According to the patient, he has not had any history of seizure and he does not have hallucination at this time. However, the patient denies headaches, chest pain, shortness of breath or palpitation, dysarthria or dysphagia. He denies any recent head injuries or fall. PAST MEDICAL HISTORY: Significant for hypertension, hyperlipidemia, idiopathic thrombocytopenic purpura, seizure, history of diabetes mellitus type 2, peripheral neuropathy and osteoarthritis, schizoaffective disorder, bipolar type, paranoia, depression, anxiety, sleep disturbance and currently visual hallucinations and suicidal ideation and possible homicidal ideation, but the patient has not had any suicidal attempt. FAMILY HISTORY: Noncontributory. SOCIAL HISTORY: There is no history of smoking, alcohol drinking, or illicit drug use. CURRENT MEDICATIONS: Risperdal 1 mg b.i.d., valproic acid 500 mg twice daily, valproic acid 750 mg at bedtime, vitamin D 2000 units p.o. daily, ____ at bedtime, albuterol inhaler, MiraLax, lithium carbonate 300 mg twice daily, levetiracetam 1000 mg b.i.d., Colace 100 mg b.i.d., Prozac 20 mg p.o. daily, aspirin 81 mg p.o. daily, pantoprazole 40 mg p.o. daily, olanzapine 5 mg q. 2 hours p.r.n. for agitation, Tylenol and milk of magnesium. ALLERGIES: CITALOPRAM. REVIEW OF SYSTEMS: A 12-point review of system was performed as mentioned above in history of present illness. PHYSICAL EXAMINATION: GENERAL: Well-developed, well-nourished male, not in acute distress. He weighs 84.7 kilos. VITAL SIGNS: Blood pressure 155/74, respiratory rate 16, pulse 78 and regular, temperature 97.7, oxygen saturation 99% on room air. HEENT: Normocephalic, atraumatic, otherwise unremarkable. NECK: Supple. Negative for carotid bruit, lymphadenopathy or thyromegaly. LUNGS: Clear to A and P. CARDIOVASCULAR: Regular rhythm, normal S1, S2. There is no S3, S4 or murmur. ABDOMEN: Soft. Bowel sounds positive. EXTREMITIES: Negative for cyanosis, clubbing or pitting edema. NEUROLOGIC: Mental status: The patient is alert and oriented x 2. The speech is fluent. There is no language dysfunction. Memory, judgment, and abstracting thinking are fair. The patient denies hallucination or delusion at this time. CRANIAL NERVES: Visual aguilar are full. The pupils are reactive to light and accommodation. The extraocular movements are intact. There is no nystagmus. There is no facial motor or sensory deficit. Hearing is intact bilaterally. The palate is elevated symmetrically. Sternocleidomastoid muscles are powerful bilaterally. The patient shrugs his shoulders symmetrically, protrudes his tongue in the midline without fasciculation or atrophy. MOTOR EXAMINATION: No focal muscle bulk was seen. The tone is normal. The strength is 5/5 throughout. SENSORY EXAMINATION: Revealed normal pinprick, light touch, vibratory and position senses. Deep tendon reflexes were symmetric and hypoactive with absent Achilles responses. GAIT: The patient uses a walker for ambulation. However, he is able to walk a few steps without assistance. LABORATORY DATA: From 12/22/2020 revealed white blood cells of 3.9 thousand, hemoglobin 13.4, hematocrit 40.7, platelet count 108. Chemistry revealed sodium of 143, potassium 4, chloride 108, CO2 of 28, BUN 11, creatinine 0.9, glucose 114, calcium 8.6. Liver enzymes are low, vitamin B12 is normal at 874 and vitamin D is normal. Thyroid profile is normal. Urinalysis is negative for urinary tract infections. Toxicology, valproic acid is normal range at 71. [place] is 0.7. IMPRESSION: 1. History of seizure disorder, etiology uncertain, currently the patient's neurological exam revealed no focal neurological deficits and he has been on multiple anticonvulsants; levetiracetam and Depakote. 2. Multiple medical problems include hypertension, hyperlipidemia, diabetes mellitus type 2, idiopathic thrombocytopenic purpura, gastroesophageal reflux disease and possible chronic obstructive pulmonary disease. 3. Multiple psychiatric problems including anxiety, dementia, schizoaffective disorders and paranoid. RECOMMENDATIONS: 1. We will continue with current medical and psychiatric care. 2. Continue with current home medications. Should the patient have seizure-like activities, we will check Depakote and Keppra levels. M Brett OJEDA MD DR: NOHELIA/thony JOB#: [id number] / [id number]
--- NOTE | 2020-12-24 20:58 | PDOC ---
Exam Note: Travis Note: Please also refer to the separate dictated note~for this date of service dictated separately.~Patient seen individually. Discussed the patient with Nursing staff reviewed the chart.~Reviewed interim history and current functioning. Reviewed vital signs,~Labs/ Radiology~and current medications noted below. Continue current treatment with the changes noted in the dictated addendum note Assessment: Vital Signs/I&O: Vital Signs Date Time Temp Pulse Resp B/P (MAP) Pulse Ox O2 Delivery O2 Flow Rate FiO2 12/24/20 16:00 97.2 80 20 128/74 (92) 97 Room Air 12/20/20 16:06 98.0 I & O 12/23/20 12/23/20 12/24/20 14:59 22:59 06:59 Intake Total 840 ml 720 ml Balance 840 ml 720 ml Current Medications: Meds: Current Medications Medications (Trade) Dose Ordered Sig/Manpreet Route PRN Reason Start Time Stop Time Status Last Admin Dose Admin Acetaminophen (Tylenol) 650 mg PRN Q6HRS PRN PO MILD PAIN / TEMP > 100.3'F 12/18/20 22:15 12/18/20 23:22 DC Multi-Ingredient Ointment (Analgesic [place]) 1 deanna PRN QID PRN TP MUSCLE PAIN 12/18/20 22:15 Al Hydroxide/Mg Hydroxide (Mylanta Plus Xs) 15 ml PRN AFTMEALHC PRN PO DYSPEPSIA 12/18/20 22:15 Magnesium Hydroxide (Milk Of Magnesia) 2,400 mg PRN QHS PRN PO 1ST CHOICE CONSTIPATION 12/18/20 22:15 Acetaminophen (Tylenol) 650 mg PRN Q6HRS PRN PO MILD PAIN / TEMP > 100.3'F 12/18/20 23:15 Aspirin (Aspirin Chewable) 81 mg DAILY PO 12/19/20 09:00 12/24/20 08:30 Bisacodyl (Dulcolax Supp) 10 mg PRN DAILY PRN RC CONSTIPATION 12/18/20 23:15 Fluoxetine HCl (PROzac) 20 mg DAILY PO 12/19/20 09:00 12/24/20 08:31 Ketoconazole (Nizoral 2% Shampoo) 1 deanna QTUTHSA TP 12/19/20 16:00 12/21/20 16:19 DC Quetiapine Fumarate (SEROquel) 25 mg DAILY PO 12/19/20 09:00 12/20/20 17:39 DC 12/20/20 09:45 Quetiapine Fumarate (SEROquel) 50 mg QHS PO 12/19/20 21:00 12/20/20 17:39 DC 12/19/20 20:40 Albuterol Sulfate (Ventolin) 2.5 mg RTQID NEB 12/19/20 08:00 12/19/20 11:21 DC Docusate Sodium (Colace Solution) 50 mg BID PO 12/19/20 09:00 12/24/20 20:25 Pantoprazole Sodium (Protonix) 40 mg DAILYAC PO 12/19/20 07:30 12/24/20 08:31 Levetiracetam (Keppra) 1,000 mg BID PO 12/19/20 09:00 12/24/20 20:25 [place] Carbonate 300 mg BID PO 12/19/20 09:00 12/24/20 20:24 Polyethylene Glycol (miraLAX) 17 gm DAILY PO 12/19/20 09:00 12/24/20 08:31 Valproic Acid (Depakene) 500 mg DAILY PO 12/19/20 09:00 12/19/20 18:01 DC 12/19/20 10:04 Vitamin D (Vitamin D3) 2,000 unit QHS PO 12/19/20 21:00 12/24/20 20:25 Olanzapine (ZyPREXA ZYDIS) 5 mg PRN Q2HR PRN PO PSYCHOSIS 12/18/20 23:30 12/24/20 20:31 Albuterol Sulfate (Ventolin Hfa Inhaler) 1 puff QID INH 12/19/20 13:00 12/24/20 20:26 Valproic Acid (Depakene) 750 mg QHS PO 12/19/20 21:00 12/24/20 20:24 Valproic Acid (Depakene) 500 mg 0900,1700 PO 12/20/20 09:00 12/24/20 16:54 Multi-Ingred Cream/Lotion/Oil/ Oint (Hydrocerin) 1 deanna BID TP 12/20/20 16:00 12/24/20 20:26 Risperidone (RisperDAL) 0.25 mg 0800 PO 12/21/20 08:00 12/22/20 17:58 DC 12/22/20 05:27 Risperidone (RisperDAL) 0.5 mg HS PO 12/20/20 21:00 12/22/20 17:58 DC 12/21/20 19:45 Ketoconazole (Nizoral 2% Shampoo) 1 deanna QODAY TP 12/22/20 12:00 12/24/20 08:34 Risperidone (RisperDAL) 1.5 mg 1X ONCE PO 12/22/20 21:00 12/22/20 21:01 DC 12/22/20 20:36 Risperidone (RisperDAL) 1 mg BID PO 12/22/20 09:00 12/22/20 18:21 DC Risperidone (RisperDAL) 1 mg BID PO 12/23/20 09:00 12/24/20 20:25 I have reviewed the current psychotropics carefully including drug interactions. Risk benefit ratio favors no change other than as noted in my dictated progress note. Diagnosis: Problems: (1) Schizoaffective disorder, bipolar type (2) Anxiety disorder, unspecified (3) Bipolar disorder, curr episode mixed, severe, with psychotic features (4) Major depressive disorder with psychotic features ROSI OSORIO MD Dec 24, 2020 20:57
--- NOTE | 2020-12-24 23:18 | NUR ---
Pt located in the dayroom this evening watching the [employer] game. Compliant with whole medications. Pt did state to previous shift that he was having suicidal thoughts at times. Pt denied having any suicidal thoughts this evening, but stated he was anxious. PRN Zyprexa administered with HS medications.
[2020-12-25 06:28] VITALS: BP 134/67
[2020-12-25] MEDS: PANTOPRAZOLE 40 MG TABLET. PO SCH (08:18)
[2020-12-25] MEDS: POLYETHYLENE GLYCOL 3350 17 GM PACKET. PO SCH (08:19)
[2020-12-25] MEDS: FLUoxetine HCL 20 MG CAPSULE PO SCH (08:19)
[2020-12-25] MEDS: VALPROIC ACID 250 MG CAPSULE. PO SCH ×3 (08:19→20:36)
[2020-12-25] MEDS: levETIRAcetam 500 MG TABLET PO SCH ×2 (08:19→20:36)
[2020-12-25] MEDS: risperiDONE 1 MG TABLET. PO SCH ×2 (08:19→20:36)
[2020-12-25] MEDS: LITHIUM CARBONATE 300 MG TABLET PO SCH ×2 (08:19→20:36)
[2020-12-25] MEDS: ASPIRIN CHEWABLE 81 MG TABLET. PO SCH (08:19)
[2020-12-25] MEDS: DOCUSATE 100 MG/10 ML SOLUTION. PO SCH ×2 (08:20→20:36)
[2020-12-25] MEDS: ALBUTEROL SULFATE 8GM INHALER. INH SCH ×4 (08:22→20:36)
[2020-12-25] MEDS: MINERAL OIL/PETROLATUM TOPICAL CREAM 113GM JAR. TP SCH ×2 (08:23→20:36)
--- NOTE | 2020-12-25 12:15 | NUR ---
PATIENT IS AWAKE IN HIS ROOM U[TESS ASSESSMENT, CALM AND COOPERATIVE, COMPLIANT WITH MEDICATIONS, DENIED PAIN, DENIED SI THOUGHTS, STATED HE IS READY TO MAKE ARRANGEMENTS TO BE DISCHARGED HE THINKS HE IS FEELING BETTER.
[2020-12-25 15:16] VITALS: BP 126/73
[2020-12-25] MEDS: CHOLECALCIFEROL (VITAMIN D3) 1,000 UNIT TABLET PO SCH (20:36)
--- NOTE | 2020-12-25 21:07 | PDOC ---
Exam Note: Travis Note: This note is a late entry for 12/21/2020 covers elements not covered in my initial note. Subjective: The patient was seen on telehealth rounds in the evening of 12/24/2020 with Shira MARK, discussed and reviewed the chart. The patient slept 6 hours previous night. Overall the patient continues to have some mood lability. Speech is garbled at times, withdrawn. He spends much time in his room but compliant with his medications. We will repeat lithium level in the morning. Review of Systems: No CV, , pulmonary, eye, ENT system symptoms on review. Ambulation impaired with walker. Mental Status Exam: The patient is reasonably oriented. Speech is coherent. Abstraction is fair. Computation impaired. Language function is intact. Mood and affect somewhat withdrawn. No suicidal or homicidal ideation.\ Laboratory Data: Reviewed. Impression: Schizoaffective disorder bipolar type, mixed with psychotic features. Anxiety disorder unspecified. Impulse control disorder unspecified. Plan: No change from initial note but we will check lithium level in the mo rning. Assessment: Vital Signs/I&O: Vital Signs Date Time Temp Pulse Resp B/P (MAP) Pulse Ox O2 Delivery O2 Flow Rate FiO2 12/25/20 15:16 97.1 73 17 126/73 (90) 95 12/24/20 16:00 Room Air 12/20/20 16:06 98.0 I & O 12/24/20 12/24/20 12/25/20 15:00 23:00 07:00 Intake Total 480 ml 320 ml Balance 480 ml 320 ml Labs: Laboratory Tests Test 12/25/20 06:18 [place] Level 0.8 mmol/L (0.6-1.2) [place] Last Dose Date 12/24/20 [place] Last Dose Time 2100 Current Medications: Meds: Laboratory Tests Test 12/25/20 06:18 [place] Level 0.8 mmol/L [place] Last Dose Date 12/24/20 [place] Last Dose Time 2100 Current Medications Medications (Trade) Dose Ordered Sig/Manpreet Route PRN Reason Start Time Stop Time Status Last Admin Dose Admin Acetaminophen (Tylenol) 650 mg PRN Q6HRS PRN PO MILD PAIN / TEMP > 100.3'F 12/18/20 22:15 12/18/20 23:22 DC Multi-Ingredient Ointment (Analgesic [place]) 1 deanna PRN QID PRN TP MUSCLE PAIN 12/18/20 22:15 Al Hydroxide/Mg Hydroxide (Mylanta Plus Xs) 15 ml PRN AFTMEALHC PRN PO DYSPEPSIA 12/18/20 22:15 Magnesium Hydroxide (Milk Of Magnesia) 2,400 mg PRN QHS PRN PO 1ST CHOICE CONSTIPATION 12/18/20 22:15 Acetaminophen (Tylenol) 650 mg PRN Q6HRS PRN PO MILD PAIN / TEMP > 100.3'F 12/18/20 23:15 Aspirin (Aspirin Chewable) 81 mg DAILY PO 12/19/20 09:00 12/25/20 08:19 Bisacodyl (Dulcolax Supp) 10 mg PRN DAILY PRN RC CONSTIPATION 12/18/20 23:15 Fluoxetine HCl (PROzac) 20 mg DAILY PO 12/19/20 09:00 12/25/20 08:19 Ketoconazole (Nizoral 2% Shampoo) 1 deanna QTUTHSA TP 12/19/20 16:00 12/21/20 16:19 DC Quetiapine Fumarate (SEROquel) 25 mg DAILY PO 12/19/20 09:00 12/20/20 17:39 DC 12/20/20 09:45 Quetiapine Fumarate (SEROquel) 50 mg QHS PO 12/19/20 21:00 12/20/20 17:39 DC 12/19/20 20:40 Albuterol Sulfate (Ventolin) 2.5 mg RTQID NEB 12/19/20 08:00 12/19/20 11:21 DC Docusate Sodium (Colace Solution) 50 mg BID PO 12/19/20 09:00 12/25/20 20:36 Pantoprazole Sodium (Protonix) 40 mg DAILYAC PO 12/19/20 07:30 12/25/20 08:18 Levetiracetam (Keppra) 1,000 mg BID PO 12/19/20 09:00 12/25/20 20:36 [place] Carbonate 300 mg BID PO 12/19/20 09:00 12/25/20 20:36 Polyethylene Glycol (miraLAX) 17 gm DAILY PO 12/19/20 09:00 12/25/20 08:19 Valproic Acid (Depakene) 500 mg DAILY PO 12/19/20 09:00 12/19/20 18:01 DC 12/19/20 10:04 Vitamin D (Vitamin D3) 2,000 unit QHS PO 12/19/20 21:00 12/25/20 20:36 Olanzapine (ZyPREXA ZYDIS) 5 mg PRN Q2HR PRN PO PSYCHOSIS 12/18/20 23:30 12/24/20 20:31 Albuterol Sulfate (Ventolin Hfa Inhaler) 1 puff QID INH 12/19/20 13:00 12/25/20 20:36 Valproic Acid (Depakene) 750 mg QHS PO 12/19/20 21:00 12/25/20 20:36 Valproic Acid (Depakene) 500 mg 0900,1700 PO 12/20/20 09:00 12/25/20 16:23 Multi-Ingred Cream/Lotion/Oil/ Oint (Hydrocerin) 1 deanna BID TP 12/20/20 16:00 12/25/20 08:23 Risperidone (RisperDAL) 0.25 mg 0800 PO 12/21/20 08:00 12/22/20 17:58 DC 12/22/20 05:27 Risperidone (RisperDAL) 0.5 mg HS PO 12/20/20 21:00 12/22/20 17:58 DC 12/21/20 19:45 Ketoconazole (Nizoral 2% Shampoo) 1 deanna QODAY TP 12/22/20 12:00 12/24/20 08:34 Risperidone (RisperDAL) 1.5 mg 1X ONCE PO 12/22/20 21:00 12/22/20 21:01 DC 12/22/20 20:36 Risperidone (RisperDAL) 1 mg BID PO 12/22/20 09:00 12/22/20 18:21 DC Risperidone (RisperDAL) 1 mg BID PO 12/23/20 09:00 12/25/20 20:36 I have reviewed the current psychotropics carefully including drug interactions. Risk benefit ratio favors no change other than as noted in my dictated progress note. Diagnosis: Problems: (1) Schizoaffective disorder, bipolar type (2) Anxiety disorder, unspecified (3) Bipolar disorder, curr episode mixed, severe, with psychotic features (4) Major depressive disorder with psychotic features ROSI OSORIO MD Dec 25, 2020 21:07
--- NOTE | 2020-12-25 21:30 | PDOC ---
Exam Note: Travis Note: Please also refer to the separate dictated note~for this date of service dictated separately.~Patient seen individually. Discussed the patient with Nursing staff reviewed the chart.~Reviewed interim history and current functioning. Reviewed vital signs,~Labs/ Radiology~and current medications noted below. Continue current treatment with the changes noted in the dictated addendum note Assessment: Vital Signs/I&O: Vital Signs Date Time Temp Pulse Resp B/P (MAP) Pulse Ox O2 Delivery O2 Flow Rate FiO2 12/25/20 15:16 97.1 73 17 126/73 (90) 95 12/24/20 16:00 Room Air 12/20/20 16:06 98.0 I & O 12/24/20 12/24/20 12/25/20 15:00 23:00 07:00 Intake Total 480 ml 320 ml Balance 480 ml 320 ml Labs: Laboratory Tests Test 12/25/20 06:18 [place] Level 0.8 mmol/L (0.6-1.2) [place] Last Dose Date 12/24/20 [place] Last Dose Time 2100 Current Medications: I have reviewed the current psychotropics carefully including drug interactions. Risk benefit ratio favors no change other than as noted in my dictated progress note. Diagnosis: Problems: (1) Schizoaffective disorder, bipolar type (2) Anxiety disorder, unspecified (3) Bipolar disorder, curr episode mixed, severe, with psychotic features (4) Major depressive disorder with psychotic features ROSI OSORIO MD Dec 25, 2020 21:30
--- NOTE | 2020-12-25 23:49 | NUR ---
Pt located in his room this evening. Pt calm, pleasant and interactive. Compliant with whole medications. Pt states that he is excited to be leaving soon. Denies SI.
[2020-12-26 06:18] VITALS: BP 120/55
[2020-12-26] MEDS: levETIRAcetam 500 MG TABLET PO SCH ×2 (08:10→21:31)
[2020-12-26] MEDS: VALPROIC ACID 250 MG CAPSULE. PO SCH ×3 (08:10→21:31)
[2020-12-26] MEDS: ASPIRIN CHEWABLE 81 MG TABLET. PO SCH (08:11)
[2020-12-26] MEDS: ALBUTEROL SULFATE 8GM INHALER. INH SCH ×4 (08:11→21:33)
[2020-12-26] MEDS: PANTOPRAZOLE 40 MG TABLET. PO SCH (08:11)
[2020-12-26] MEDS: DOCUSATE 100 MG/10 ML SOLUTION. PO SCH ×2 (08:11→21:31)
[2020-12-26] MEDS: risperiDONE 1 MG TABLET. PO SCH ×2 (08:11→21:32)
[2020-12-26] MEDS: FLUoxetine HCL 20 MG CAPSULE PO SCH (08:11)
[2020-12-26] MEDS: LITHIUM CARBONATE 300 MG TABLET PO SCH ×2 (08:11→21:31)
[2020-12-26] MEDS: POLYETHYLENE GLYCOL 3350 17 GM PACKET. PO SCH (08:11)
[2020-12-26] MEDS: MINERAL OIL/PETROLATUM TOPICAL CREAM 113GM JAR. TP SCH ×2 (08:12→21:00)
--- NOTE | 2020-12-26 08:31 | PDOC ---
Exam Note: Travis Note: This note is a late entry for 12/21/2020 covers elements not covered in my initial note. Subjective: The patient was seen face to face in the evening of 12/25/2020 with Marla MARK, discussed and reviewed the chart. The patient slept 7 hours previous night. Overall the patient has been calm, cooperative, less paranoid, and psychotic. [place] level is 0.8. I met with him in his room in the evening. Review of Systems: No CV, , pulmonary, eye, ENT system symptoms on review. Mental Status Exam: The patient is reasonably oriented. Speech is coherent, has some latency. Abstraction is fair. Computation impaired. Language function is intact. Mood and affect less anxious and labile. No suicidal or homicidal ideation. Laboratory Data: Reviewed. Impression: Schizoaffective disorder bipolar type, mixed with psychotic features. Anxiety disorder unspecified. Impulse control disorder unspecified. Plan: No change from initial note. We may need to increase Risperdal further if psychotic symptoms resurface. Assessment: Vital Signs/I&O: Vital Signs Date Time Temp Pulse Resp B/P (MAP) Pulse Ox O2 Delivery O2 Flow Rate FiO2 12/26/20 06:18 98.1 88 14 120/55 (76) 96 12/24/20 16:00 Room Air 12/20/20 16:06 98.0 I & O 0 12/25/20 12/25/20 12/26/20 15:00 23:00 07:00 Intake Total 660 ml 480 ml Balance 660 ml 480 ml Current Medications: Meds: Current Medications Medications (Trade) Dose Ordered Sig/Manpreet Route PRN Reason Start Time Stop Time Status Last Admin Dose Admin Acetaminophen (Tylenol) 650 mg PRN Q6HRS PRN PO MILD PAIN / TEMP > 100.3'F 12/18/20 22:15 12/18/20 23:22 DC Multi-Ingredient Ointment (Analgesic [place]) 1 deanna PRN QID PRN TP MUSCLE PAIN 12/18/20 22:15 Al Hydroxide/Mg Hydroxide (Mylanta Plus Xs) 15 ml PRN AFTMEALHC PRN PO DYSPEPSIA 12/18/20 22:15 Magnesium Hydroxide (Milk Of Magnesia) 2,400 mg PRN QHS PRN PO 1ST CHOICE CONSTIPATION 12/18/20 22:15 Acetaminophen (Tylenol) 650 mg PRN Q6HRS PRN PO MILD PAIN / TEMP > 100.3'F 12/18/20 23:15 Aspirin (Aspirin Chewable) 81 mg DAILY PO 12/19/20 09:00 12/26/20 08:11 Bisacodyl (Dulcolax Supp) 10 mg PRN DAILY PRN RC CONSTIPATION 12/18/20 23:15 Fluoxetine HCl (PROzac) 20 mg DAILY PO 12/19/20 09:00 12/26/20 08:11 Ketoconazole (Nizoral 2% Shampoo) 1 deanna QTUTHSA TP 12/19/20 16:00 12/21/20 16:19 DC Quetiapine Fumarate (SEROquel) 25 mg DAILY PO 12/19/20 09:00 12/20/20 17:39 DC 12/20/20 09:45 Quetiapine Fumarate (SEROquel) 50 mg QHS PO 12/19/20 21:00 12/20/20 17:39 DC 12/19/20 20:40 Albuterol Sulfate (Ventolin) 2.5 mg RTQID NEB 12/19/20 08:00 12/19/20 11:21 DC Docusate Sodium (Colace Solution) 50 mg BID PO 12/19/20 09:00 12/26/20 08:11 Pantoprazole Sodium (Protonix) 40 mg DAILYAC PO 12/19/20 07:30 12/26/20 08:11 Levetiracetam (Keppra) 1,000 mg BID PO 12/19/20 09:00 12/26/20 08:10 [place] Carbonate 300 mg BID PO 12/19/20 09:00 12/26/20 08:11 Polyethylene Glycol (miraLAX) 17 gm DAILY PO 12/19/20 09:00 12/26/20 08:11 Valproic Acid (Depakene) 500 mg DAILY PO 12/19/20 09:00 12/19/20 18:01 DC 12/19/20 10:04 Vitamin D (Vitamin D3) 2,000 unit QHS PO 12/19/20 21:00 12/25/20 20:36 Olanzapine (ZyPREXA ZYDIS) 5 mg PRN Q2HR PRN PO PSYCHOSIS 12/18/20 23:30 12/24/20 20:31 Albuterol Sulfate (Ventolin Hfa Inhaler) 1 puff QID INH 12/19/20 13:00 12/26/20 08:11 Valproic Acid (Depakene) 750 mg QHS PO 12/19/20 21:00 12/25/20 20:36 Valproic Acid (Depakene) 500 mg 0900,1700 PO 12/20/20 09:00 12/26/20 08:10 Multi-Ingred Cream/Lotion/Oil/ Oint (Hydrocerin) 1 [place]ana BID TP 12/20/20 16:00 12/26/20 08:12 Risperidone (RisperDAL) 0.25 mg 0800 PO 12/21/20 08:00 12/22/20 17:58 DC 12/22/20 05:27 Risperidone (RisperDAL) 0.5 mg HS PO 12/20/20 21:00 12/22/20 17:58 DC 12/21/20 19:45 Ketoconazole (Nizoral 2% Shampoo) 1 deanna QODAY TP 12/22/20 12:00 12/24/20 08:34 Risperidone (RisperDAL) 1.5 mg 1X ONCE PO 12/22/20 21:00 12/22/20 21:01 DC 12/22/20 20:36 Risperidone (RisperDAL) 1 mg BID PO 12/22/20 09:00 12/22/20 18:21 DC Risperidone (RisperDAL) 1 mg BID PO 12/23/20 09:00 12/26/20 08:11 I have reviewed the current psychotropics carefully including drug interactions. Risk benefit ratio favors no change other than as noted in my dictated progress note. Diagnosis: Problems: (1) Schizoaffective disorder, bipolar type (2) Anxiety disorder, unspecified (3) Bipolar disorder, curr episode mixed, severe, with psychotic features (4) Major depressive disorder with psychotic features ROSI OSORIO MD Dec 26, 2020 08:31
[2020-12-26] MEDS: KETOCONAZOLE 2% SHAMPOO 120ML BOTTLE. TP SCH (09:00)
[2020-12-26 15:48] VITALS: BP 131/84
--- NOTE | 2020-12-26 16:25 | NUR ---
Patient in room lying down at time of assessment. Patient sits up at edge of bed to eat breakfast and talk to me. He has no complaints at this time. Patient is alert and oriented. He takes medications whole with no problems. Patient continues to have good day with no behaviors. No further concerns or complaints at this time.
--- NOTE | 2020-12-26 20:55 | PDOC ---
Exam Note: Travis Note: Please also refer to the separate dictated note~for this date of service dictated separately.~Patient seen individually. Discussed the patient with Nursing staff reviewed the chart.~Reviewed interim history and current functioning. Reviewed vital signs,~Labs/ Radiology~and current medications noted below. Continue current treatment with the changes noted in the dictated addendum note Assessment: Vital Signs/I&O: Vital Signs Date Time Temp Pulse Resp B/P (MAP) Pulse Ox O2 Delivery O2 Flow Rate FiO2 12/26/20 15:48 97.0 83 18 131/84 (100) 100 12/24/20 16:00 Room Air 12/20/20 16:06 98.0 I & O 0 12/25/20 12/25/20 12/26/20 15:00 23:00 07:00 Intake Total 660 ml 480 ml Balance 660 ml 480 ml Current Medications: Meds: Current Medications Medications (Trade) Dose Ordered Sig/Manpreet Route PRN Reason Start Time Stop Time Status Last Admin Dose Admin Acetaminophen (Tylenol) 650 mg PRN Q6HRS PRN PO MILD PAIN / TEMP > 100.3'F 12/18/20 22:15 12/18/20 23:22 DC Multi-Ingredient Ointment (Analgesic [place]) 1 deanna PRN QID PRN TP MUSCLE PAIN 12/18/20 22:15 Al Hydroxide/Mg Hydroxide (Mylanta Plus Xs) 15 ml PRN AFTMEALHC PRN PO DYSPEPSIA 12/18/20 22:15 Magnesium Hydroxide (Milk Of Magnesia) 2,400 mg PRN QHS PRN PO 1ST CHOICE CONSTIPATION 12/18/20 22:15 Acetaminophen (Tylenol) 650 mg PRN Q6HRS PRN PO MILD PAIN / TEMP > 100.3'F 12/18/20 23:15 Aspirin (Aspirin Chewable) 81 mg DAILY PO 12/19/20 09:00 12/26/20 08:11 Bisacodyl (Dulcolax Supp) 10 mg PRN DAILY PRN RC CONSTIPATION 12/18/20 23:15 Fluoxetine HCl (PROzac) 20 mg DAILY PO 12/19/20 09:00 12/26/20 08:11 Ketoconazole (Nizoral 2% Shampoo) 1 deanna QTUTHSA TP 12/19/20 16:00 12/21/20 16:19 DC Quetiapine Fumarate (SEROquel) 25 mg DAILY PO 12/19/20 09:00 12/20/20 17:39 DC 12/20/20 09:45 Quetiapine Fumarate (SEROquel) 50 mg QHS PO 12/19/20 21:00 12/20/20 17:39 DC 12/19/20 20:40 Albuterol Sulfate (Ventolin) 2.5 mg RTQID NEB 12/19/20 08:00 12/19/20 11:21 DC Docusate Sodium (Colace Solution) 50 mg BID PO 12/19/20 09:00 12/26/20 08:11 Pantoprazole Sodium (Protonix) 40 mg DAILYAC PO 12/19/20 07:30 12/26/20 08:11 Levetiracetam (Keppra) 1,000 mg BID PO 12/19/20 09:00 12/26/20 08:10 [place] Carbonate 300 mg BID PO 12/19/20 09:00 12/26/20 08:11 Polyethylene Glycol (miraLAX) 17 gm DAILY PO 12/19/20 09:00 12/26/20 08:11 Valproic Acid (Depakene) 500 mg DAILY PO 12/19/20 09:00 12/19/20 18:01 DC 12/19/20 10:04 Vitamin D (Vitamin D3) 2,000 unit QHS PO 12/19/20 21:00 12/25/20 20:36 Olanzapine (ZyPREXA ZYDIS) 5 mg PRN Q2HR PRN PO PSYCHOSIS 12/18/20 23:30 12/24/20 20:31 Albuterol Sulfate (Ventolin Hfa Inhaler) 1 puff QID INH 12/19/20 13:00 12/26/20 17:00 Valproic Acid (Depakene) 750 mg QHS PO 12/19/20 21:00 12/25/20 20:36 Valproic Acid (Depakene) 500 mg 0900,1700 PO 12/20/20 09:00 12/26/20 17:00 Multi-Ingred Cream/Lotion/Oil/ Oint (Hydrocerin) 1 deanna BID TP 12/20/20 16:00 12/26/20 08:12 Risperidone (RisperDAL) 0.25 mg 0800 PO 12/21/20 08:00 12/22/20 17:58 DC 12/22/20 05:27 Risperidone (RisperDAL) 0.5 mg HS PO 12/20/20 21:00 12/22/20 17:58 DC 12/21/20 19:45 Ketoconazole (Nizoral 2% Shampoo) 1 deanna QODAY TP 12/22/20 12:00 12/26/20 09:00 Risperidone (RisperDAL) 1.5 mg 1X ONCE PO 12/22/20 21:00 12/22/20 21:01 DC 12/22/20 20:36 Risperidone (RisperDAL) 1 mg BID PO 12/22/20 09:00 12/22/20 18:21 DC Risperidone (RisperDAL) 1 mg BID PO 12/23/20 09:00 12/26/20 08:11 I have reviewed the current psychotropics carefully including drug interactions. Risk benefit ratio favors no change other than as noted in my dictated progress note. Diagnosis: Problems: (1) Schizoaffective disorder, bipolar type (2) Anxiety disorder, unspecified (3) Bipolar disorder, curr episode mixed, severe, with psychotic features (4) Major depressive disorder with psychotic features ROSI OSORIO MD Dec 26, 2020 20:55
[2020-12-26] MEDS: CHOLECALCIFEROL (VITAMIN D3) 1,000 UNIT TABLET PO SCH (21:31)
--- NOTE | 2020-12-26 22:59 | NUR ---
Patient is in his room sitting on the edge of his bed. He told this nurse that he is paranoid. He asked several questions about "which government owns this hospital", "where is Dr Deras from" and then stated that this nurse was "working with the government". Patient compliant with medications, oriented to self, place and circumstance of hospitalization. He denied SI/HI when asked. 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 When asked he clarified that CI means "confidential informant". Patient has rash on left hand and arm, Eucerin cream applied per order.
[2020-12-27 05:57] VITALS: BP 159/82
[2020-12-27] MEDS: DOCUSATE 100 MG/10 ML SOLUTION. PO SCH ×2 (08:26→20:30)
[2020-12-27] MEDS: POLYETHYLENE GLYCOL 3350 17 GM PACKET. PO SCH (08:26)
[2020-12-27] MEDS: FLUoxetine HCL 20 MG CAPSULE PO SCH (08:27)
[2020-12-27] MEDS: LITHIUM CARBONATE 300 MG TABLET PO SCH ×2 (08:27→20:31)
[2020-12-27] MEDS: VALPROIC ACID 250 MG CAPSULE. PO SCH ×3 (08:27→20:31)
[2020-12-27] MEDS: ASPIRIN CHEWABLE 81 MG TABLET. PO SCH (08:27)
[2020-12-27] MEDS: levETIRAcetam 500 MG TABLET PO SCH ×2 (08:27→20:31)
[2020-12-27] MEDS: risperiDONE 1 MG TABLET. PO SCH ×2 (08:27→20:32)
[2020-12-27] MEDS: PANTOPRAZOLE 40 MG TABLET. PO SCH (08:27)
[2020-12-27] MEDS: ALBUTEROL SULFATE 8GM INHALER. INH SCH ×4 (08:28→20:34)
[2020-12-27] MEDS: MINERAL OIL/PETROLATUM TOPICAL CREAM 113GM JAR. TP SCH ×3 (08:28→20:42)
--- NOTE | 2020-12-27 08:29 | PDOC ---
Exam Note: Travis Note: This note is a late entry for 12/21/2020 covers elements not covered in my initial note. Subjective: The patient was seen on telehealth rounds in the evening of 12/26/2020 with Anneliese MARK, discussed and reviewed the chart. The patient slept 7- 1/2 hours previous night. He has been more appropriate on the unit with no suicidal or homicidal ideation. No clear psychotic symptoms. Review of Systems: No CV, , pulmonary, eye, ENT system symptoms on review. Mental Status Exam: The patient is reasonably oriented. I met with him in his room on telehealth rounds. Speech is coherent, has some latency. Abstraction is fair. Computation impaired. Language function is intact. Mood and affect less anxious and labile. No suicidal or homicidal ideation. Laboratory Data: Reviewed. Impression: Schizoaffective disorder bipolar type, mixed with psychotic features. Anxiety disorder unspecified. Impulse control disorder unspecified. Plan: No change from initial note. Assessment: Vital Signs/I&O: Vital Signs Date Time Temp Pulse Resp B/P (MAP) Pulse Ox O2 Delivery O2 Flow Rate FiO2 12/27/20 05:57 97.1 93 18 159/82 (107) 99 12/24/20 16:00 Room Air I & O 12/26/20 12/26/20 12/27/20 15:00 23:00 07:00 Intake Total 840 ml 360 ml Balance 840 ml 360 ml Current Medications: Meds: Current Medications Medications (Trade) Dose Ordered Sig/Manpreet Route PRN Reason Start Time Stop Time Status Last Admin Dose Admin Acetaminophen (Tylenol) 650 mg PRN Q6HRS PRN PO MILD PAIN / TEMP > 100.3'F 12/18/20 22:15 12/18/20 23:22 DC Multi-Ingredient Ointment (Analgesic [place]) 1 deanna PRN QID PRN TP MUSCLE PAIN 12/18/20 22:15 Al Hydroxide/Mg Hydroxide (Mylanta Plus Xs) 15 ml PRN AFTMEALHC PRN PO DYSPEPSIA 12/18/20 22:15 Magnesium Hydroxide (Milk Of Magnesia) 2,400 mg PRN QHS PRN PO 1ST CHOICE CONSTIPATION 12/18/20 22:15 Acetaminophen (Tylenol) 650 mg PRN Q6HRS PRN PO MILD PAIN / TEMP > 100.3'F 12/18/20 23:15 Aspirin (Aspirin Chewable) 81 mg DAILY PO 12/19/20 09:00 12/26/20 08:11 Bisacodyl (Dulcolax Supp) 10 mg PRN DAILY PRN RC CONSTIPATION 12/18/20 23:15 Fluoxetine HCl (PROzac) 20 mg DAILY PO 12/19/20 09:00 12/26/20 08:11 Ketoconazole (Nizoral 2% Shampoo) 1 deanna QTUTHSA TP 12/19/20 16:00 12/21/20 16:19 DC Quetiapine Fumarate (SEROquel) 25 mg DAILY PO 12/19/20 09:00 12/20/20 17:39 DC 12/20/20 09:45 Quetiapine Fumarate (SEROquel) 50 mg QHS PO 12/19/20 21:00 12/20/20 17:39 DC 12/19/20 20:40 Albuterol Sulfate (Ventolin) 2.5 mg RTQID NEB 12/19/20 08:00 12/19/20 11:21 DC Docusate Sodium (Colace Solution) 50 mg BID PO 12/19/20 09:00 12/26/20 21:31 Pantoprazole Sodium (Protonix) 40 mg DAILYAC PO 12/19/20 07:30 12/26/20 08:11 Levetiracetam (Keppra) 1,000 mg BID PO 12/19/20 09:00 12/26/20 21:31 [place] Carbonate 300 mg BID PO 12/19/20 09:00 12/26/20 21:31 Polyethylene Glycol (miraLAX) 17 gm DAILY PO 12/19/20 09:00 12/26/20 08:11 Valproic Acid (Depakene) 500 mg DAILY PO 12/19/20 09:00 12/19/20 18:01 DC 12/19/20 10:04 Vitamin D (Vitamin D3) 2,000 unit QHS PO 12/19/20 21:00 12/26/20 21:31 Olanzapine (ZyPREXA ZYDIS) 5 mg PRN Q2HR PRN PO PSYCHOSIS 12/18/20 23:30 12/24/20 20:31 Albuterol Sulfate (Ventolin Hfa Inhaler) 1 puff QID INH 12/19/20 13:00 12/26/20 21:33 Valproic Acid (Depakene) 750 mg QHS PO 12/19/20 21:00 12/26/20 21:31 Valproic Acid (Depakene) 500 mg 0900,1700 PO 12/20/20 09:00 12/26/20 17:00 Multi-Ingred Cream/Lotion/Oil/ Oint (Hydrocerin) 1 deanna BID TP 12/20/20 16:00 12/26/20 21:00 Risperidone (RisperDAL) 0.25 mg 0800 PO 12/21/20 08:00 12/22/20 17:58 DC 12/22/20 05:27 Risperidone (RisperDAL) 0.5 mg HS PO 12/20/20 21:00 12/22/20 17:58 DC 12/21/20 19:45 Ketoconazole (Nizoral 2% Shampoo) 1 deanna QODAY TP 12/22/20 12:00 12/26/20 09:00 Risperidone (RisperDAL) 1.5 mg 1X ONCE PO 12/22/20 21:00 12/22/20 21:01 DC 12/22/20 20:36 Risperidone (RisperDAL) 1 mg BID PO 12/22/20 09:00 12/22/20 18:21 DC Risperidone (RisperDAL) 1 mg BID PO 12/23/20 09:00 12/26/20 21:32 I have reviewed the current psychotropics carefully including drug interactions. Risk benefit ratio favors no change other than as noted in my dictated progress note. Diagnosis: Problems: (1) Schizoaffective disorder, bipolar type (2) Anxiety disorder, unspecified (3) Bipolar disorder, curr episode mixed, severe, with psychotic features (4) Major depressive disorder with psychotic features ROSI OSORIO MD Dec 27, 2020 08:29
--- NOTE | 2020-12-27 10:30 | NUR ---
Pt has been in his room most of the morning and ate breakfast. He has been appropriate in behaviors and has made statements about desiring to d/c. He has been absent of SI/HI behaviors thus far during shift. He is complaint with assessment and medications.
[2020-12-27 16:13] VITALS: BP 113/71
[2020-12-27] MEDS: CHOLECALCIFEROL (VITAMIN D3) 1,000 UNIT TABLET PO SCH (20:34)
--- NOTE | 2020-12-27 20:59 | PDOC ---
Exam Note: Travis Note: Please also refer to the separate dictated note~for this date of service dictated separately.~Patient seen individually. Discussed the patient with Nursing staff reviewed the chart.~Reviewed interim history and current functioning. Reviewed vital signs,~Labs/ Radiology~and current medications noted below. Continue current treatment with the changes noted in the dictated addendum note Assessment: Vital Signs/I&O: Vital Signs Date Time Temp Pulse Resp B/P (MAP) Pulse Ox O2 Delivery O2 Flow Rate FiO2 12/27/20 16:13 97.2 83 18 113/71 (85) 93 12/24/20 16:00 Room Air I & O 12/26/20 12/26/20 12/27/20 15:00 23:00 07:00 Intake Total 840 ml 360 ml Balance 840 ml 360 ml Current Medications: Meds: Current Medications Medications (Trade) Dose Ordered Sig/Manpreet Route PRN Reason Start Time Stop Time Status Last Admin Dose Admin Acetaminophen (Tylenol) 650 mg PRN Q6HRS PRN PO MILD PAIN / TEMP > 100.3'F 12/18/20 22:15 12/18/20 23:22 DC Multi-Ingredient Ointment (Analgesic [place]) 1 deanna PRN QID PRN TP MUSCLE PAIN 12/18/20 22:15 Al Hydroxide/Mg Hydroxide (Mylanta Plus Xs) 15 ml PRN AFTMEALHC PRN PO DYSPEPSIA 12/18/20 22:15 Magnesium Hydroxide (Milk Of Magnesia) 2,400 mg PRN QHS PRN PO 1ST CHOICE CONSTIPATION 12/18/20 22:15 Acetaminophen (Tylenol) 650 mg PRN Q6HRS PRN PO MILD PAIN / TEMP > 100.3'F 12/18/20 23:15 Aspirin (Aspirin Chewable) 81 mg DAILY PO 12/19/20 09:00 12/27/20 08:27 Bisacodyl (Dulcolax Supp) 10 mg PRN DAILY PRN RC CONSTIPATION 12/18/20 23:15 Fluoxetine HCl (PROzac) 20 mg DAILY PO 12/19/20 09:00 12/27/20 08:27 Ketoconazole (Nizoral 2% Shampoo) 1 deanna QTUTHSA TP 12/19/20 16:00 12/21/20 16:19 DC Quetiapine Fumarate (SEROquel) 25 mg DAILY PO 12/19/20 09:00 12/20/20 17:39 DC 12/20/20 09:45 Quetiapine Fumarate (SEROquel) 50 mg QHS PO 12/19/20 21:00 12/20/20 17:39 DC 12/19/20 20:40 Albuterol Sulfate (Ventolin) 2.5 mg RTQID NEB 12/19/20 08:00 12/19/20 11:21 DC Docusate Sodium (Colace Solution) 50 mg BID PO 12/19/20 09:00 12/27/20 20:30 Pantoprazole Sodium (Protonix) 40 mg DAILYAC PO 12/19/20 07:30 12/27/20 08:27 Levetiracetam (Keppra) 1,000 mg BID PO 12/19/20 09:00 12/27/20 20:31 [place] Carbonate 300 mg BID PO 12/19/20 09:00 12/27/20 20:31 Polyethylene Glycol (miraLAX) 17 gm DAILY PO 12/19/20 09:00 12/27/20 08:26 Valproic Acid (Depakene) 500 mg DAILY PO 12/19/20 09:00 12/19/20 18:01 DC 12/19/20 10:04 Vitamin D (Vitamin D3) 2,000 unit QHS PO 12/19/20 21:00 12/27/20 20:34 Olanzapine (ZyPREXA ZYDIS) 5 mg PRN Q2HR PRN PO PSYCHOSIS 12/18/20 23:30 12/24/20 20:31 Albuterol Sulfate (Ventolin Hfa Inhaler) 1 puff QID INH 12/19/20 13:00 12/27/20 20:34 Valproic Acid (Depakene) 750 mg QHS PO 12/19/20 21:00 12/27/20 20:31 Valproic Acid (Depakene) 500 mg 0900,1700 PO 12/20/20 09:00 12/27/20 16:25 Multi-Ingred Cream/Lotion/Oil/ Oint (Hydrocerin) 1 deanna BID TP 12/20/20 16:00 12/26/20 21:00 Risperidone (RisperDAL) 0.25 mg 0800 PO 12/21/20 08:00 12/22/20 17:58 DC 12/22/20 05:27 Risperidone (RisperDAL) 0.5 mg HS PO 12/20/20 21:00 12/22/20 17:58 DC 12/21/20 19:45 Ketoconazole (Nizoral 2% Shampoo) 1 deanna QODAY TP 12/22/20 12:00 12/26/20 09:00 Risperidone (RisperDAL) 1.5 mg 1X ONCE PO 12/22/20 21:00 12/22/20 21:01 DC 12/22/20 20:36 Risperidone (RisperDAL) 1 mg BID PO 12/22/20 09:00 12/22/20 18:21 DC Risperidone (RisperDAL) 1 mg BID PO 12/23/20 09:00 12/27/20 20:32 I have reviewed the current psychotropics carefully including drug interactions. Risk benefit ratio favors no change other than as noted in my dictated progress note. Diagnosis: Problems: (1) Schizoaffective disorder, bipolar type (2) Anxiety disorder, unspecified (3) Bipolar disorder, curr episode mixed, severe, with psychotic features (4) Major depressive disorder with psychotic features ROSI OSORIO MD Dec 27, 2020 20:59
--- NOTE | 2020-12-27 22:00 | NUR ---
Patient in bed in room. It was passed on in report to this nurse that patient has been getting tap water out of the sink to drink. Patient is on honey thick liquids. Nurse spoke to patient about the risk of aspiration and made sure there were no cups left in his room. Patient compliant with medications. Patient states he has been reading the book of Revelations in the Bible and is "learning about the world". He also talked about the [facility] being started by Valente Greene and that he doesn't understand why he was "sent here" when the [facility] has inpatient psych facilities available. He stated it was a "racket to bill medicare" for his stay. He seemed less paranoid than yesterday but was leaning toward conspiracy thinking during the conversation tonight.
[2020-12-28 05:32] VITALS: BP 125/80
[2020-12-28] MEDS: DOCUSATE 100 MG/10 ML SOLUTION. PO SCH ×2 (08:00→20:02)
[2020-12-28] MEDS: levETIRAcetam 500 MG TABLET PO SCH ×2 (08:00→20:01)
[2020-12-28] MEDS: VALPROIC ACID 250 MG CAPSULE. PO SCH ×3 (08:01→20:01)
[2020-12-28] MEDS: ASPIRIN CHEWABLE 81 MG TABLET. PO SCH (08:01)
[2020-12-28] MEDS: POLYETHYLENE GLYCOL 3350 17 GM PACKET. PO SCH (08:01)
[2020-12-28] MEDS: FLUoxetine HCL 20 MG CAPSULE PO SCH (08:01)
[2020-12-28] MEDS: risperiDONE 1 MG TABLET. PO SCH ×2 (08:01→20:01)
[2020-12-28] MEDS: PANTOPRAZOLE 40 MG TABLET. PO SCH (08:01)
[2020-12-28] MEDS: LITHIUM CARBONATE 300 MG TABLET PO SCH ×2 (08:01→20:01)
--- NOTE | 2020-12-28 08:02 | PDOC ---
Exam Note: Travis Note: This note is a late entry for 12/21/2020 covers elements not covered in my initial note. Subjective: The patient was seen face to face in the evening of 12/27/2020 with Shira RN, discussed and reviewed the chart. The patient slept 6-1/2 hours previous night. He is paranoid. The patient stated that one of the other patients was a confidential informant for the police and he believed the nurse worked for the government, much of this was evident. Last night he was a little less paranoid today. He has some swallowing problems, trying to drink thin liquids per nursing report. Review of Systems: Ambulation impaired with walker. No CV, , pulmonary, eye, ENT system symptoms on review. Mental Status Exam: The patient is reasonably oriented. Speech is coherent. Abstraction is fair. Computation impaired. Language function is intact. Mood and affect less anxious and labile. No suicidal or homicidal ideation as I specifically questioned him on this. Laboratory Data: Reviewed. Impression: Schizoaffective disorder bipolar type, mixed with psychotic feature s. Anxiety disorder unspecified. Impulse control disorder unspecified. Plan: No change from initial note. Assessment: Vital Signs/I&O: Vital Signs Date Time Temp Pulse Resp B/P (MAP) Pulse Ox O2 Delivery O2 Flow Rate FiO2 12/28/20 05:32 97.2 85 16 125/80 (95) 100 12/24/20 16:00 Room Air I & O 12/27/20 12/27/20 12/28/20 14:59 22:59 06:59 Intake Total 600 ml 360 ml Balance 600 ml 360 ml Current Medications: Meds: Current Medications Medications (Trade) Dose Ordered Sig/Manpreet Route PRN Reason Start Time Stop Time Status Last Admin Dose Admin Acetaminophen (Tylenol) 650 mg PRN Q6HRS PRN PO MILD PAIN / TEMP > 100.3'F 12/18/20 22:15 12/18/20 23:22 DC Multi-Ingredient Ointment (Analgesic [place]) 1 deanna PRN QID PRN TP MUSCLE PAIN 12/18/20 22:15 Al Hydroxide/Mg Hydroxide (Mylanta Plus Xs) 15 ml PRN AFTMEALHC PRN PO DYSPEPSIA 12/18/20 22:15 Magnesium Hydroxide (Milk Of Magnesia) 2,400 mg PRN QHS PRN PO 1ST CHOICE CONSTIPATION 12/18/20 22:15 Acetaminophen (Tylenol) 650 mg PRN Q6HRS PRN PO MILD PAIN / TEMP > 100.3'F 12/18/20 23:15 Aspirin (Aspirin Chewable) 81 mg DAILY PO 12/19/20 09:00 12/27/20 08:27 Bisacodyl (Dulcolax Supp) 10 mg PRN DAILY PRN RC CONSTIPATION 12/18/20 23:15 Fluoxetine HCl (PROzac) 20 mg DAILY PO 12/19/20 09:00 12/27/20 08:27 Ketoconazole (Nizoral 2% Shampoo) 1 deanna QTUTHSA TP 12/19/20 16:00 12/21/20 16:19 DC Quetiapine Fumarate (SEROquel) 25 mg DAILY PO 12/19/20 09:00 12/20/20 17:39 DC 12/20/20 09:45 Quetiapine Fumarate (SEROquel) 50 mg QHS PO 12/19/20 21:00 12/20/20 17:39 DC 12/19/20 20:40 Albuterol Sulfate (Ventolin) 2.5 mg RTQID NEB 12/19/20 08:00 12/19/20 11:21 DC Docusate Sodium (Colace Solution) 50 mg BID PO 12/19/20 09:00 12/27/20 20:30 Pantoprazole Sodium (Protonix) 40 mg DAILYAC PO 12/19/20 07:30 12/27/20 08:27 Levetiracetam (Keppra) 1,000 mg BID PO 12/19/20 09:00 12/27/20 20:31 [place] Carbonate 300 mg BID PO 12/19/20 09:00 12/27/20 20:31 Polyethylene Glycol (miraLAX) 17 gm DAILY PO 12/19/20 09:00 12/27/20 08:26 Valproic Acid (Depakene) 500 mg DAILY PO 12/19/20 09:00 12/19/20 18:01 DC 12/19/20 10:04 Vitamin D (Vitamin D3) 2,000 unit QHS PO 12/19/20 21:00 12/27/20 20:34 Olanzapine (ZyPREXA ZYDIS) 5 mg PRN Q2HR PRN PO PSYCHOSIS 12/18/20 23:30 12/24/20 20:31 Albuterol Sulfate (Ventolin Hfa Inhaler) 1 puff QID INH 12/19/20 13:00 12/27/20 20:34 Valproic Acid (Depakene) 750 mg QHS PO 12/19/20 21:00 12/27/20 20:31 Valproic Acid (Depakene) 500 mg 0900,1700 PO 12/20/20 09:00 12/27/20 16:25 Multi-Ingred Cream/Lotion/Oil/ Oint (Hydrocerin) 1 deanna BID TP 12/20/20 16:00 12/26/20 21:00 Risperidone (RisperDAL) 0.25 mg 0800 PO 12/21/20 08:00 12/22/20 17:58 DC 12/22/20 05:27 Risperidone (RisperDAL) 0.5 mg HS PO 12/20/20 21:00 12/22/20 17:58 DC 12/21/20 19:45 Ketoconazole (Nizoral 2% Shampoo) 1 deanna QODAY TP 12/22/20 12:00 12/26/20 09:00 Risperidone (RisperDAL) 1.5 mg 1X ONCE PO 12/22/20 21:00 12/22/20 21:01 DC 12/22/20 20:36 Risperidone (RisperDAL) 1 mg BID PO 12/22/20 09:00 12/22/20 18:21 DC Risperidone (RisperDAL) 1 mg BID PO 12/23/20 09:00 12/27/20 20:32 I have reviewed the current psychotropics carefully including drug interactions. Risk benefit ratio favors no change other than as noted in my dictated progress note. Diagnosis: Problems: (1) Schizoaffective disorder, bipolar type (2) Anxiety disorder, unspecified (3) Bipolar disorder, curr episode mixed, severe, with psychotic features (4) Major depressive disorder with psychotic features ROSI OSORIO MD Dec 28, 2020 08:02
[2020-12-28] MEDS: ALBUTEROL SULFATE 8GM INHALER. INH SCH ×4 (08:04→20:00)
[2020-12-28] MEDS: KETOCONAZOLE 2% SHAMPOO 120ML BOTTLE. TP SCH (08:28)
[2020-12-28] MEDS: MINERAL OIL/PETROLATUM TOPICAL CREAM 113GM JAR. TP SCH ×2 (08:28→20:01)
--- NOTE | 2020-12-28 10:10 | NUR ---
WEEKLY ACTIVITY THERAPY NOTE Date of Admission: 12/18/20 Date of AT Assessment: 12/21/20 Precipitating behaviors that initiated intake and admission: SI, HI, Agitation and depression Goal aimed: to increase time management and socialization skills. Initial Goal: Pt will participate in at least five individual or group Activity Therapy sessions per week. Weekly progress towards goal: did not meet, 02/19 Group participation level: 3 min, 1 full Weekly highlights: fully engaged and answered most music questions correctly last Behaviors observed: direct prompting to engage, giving one or two word answers, random shout outs a few time, seemed to make a crying sound during one group, readjusted in himself in his wheelchair occasionally, sleeps often Plan: no change to goal Beneficial adaptations: direct prompting
--- NOTE | 2020-12-28 14:31 | TX PLAN ---
Interdisciplinary Tx Plan Admission Information Dec 18, 2020 at 21:58 Legal Status (on Admission): Voluntary DPOA/Guardian Name: Jacob is a self sign. Brother is POA when needed. Other Contact Verified Code Status: Full Code Allergies: Coded Allergies: citalopram (Verified Allergy, Unknown, 12/18/20) Estimated Length of Stay: 14 Diagnoses Primary Diagnosis: Schizoaffective, bipolar type with psychotic fetures Reasons for Admission: Aggressive, Agitated, Depressed, Hallucinations, Suicidal ideation, Homicidal Ideation, Poor impulse control Problem in Patient's Words: Per Jacob,"Mental illness, I'm diagnosed with schizoaffective." Additional Admission Comments: Per intake record, SI, HI (took silverware from the dining room stating he was going to hurt someone), agitated, depressed, visual hallucintations, command hallucinations, paranoia, fearful. Problems Active Problems: SI HI Hallucinating Paranoid Inactive Problems: Intakes are adequate Slept eight hours night of 12/20/20 Medication compliant Pt Strengths/Limitations Ability for [place]: Fair Cognitive Functioning/Ability: Fair Communication Skills/Ability: Fair Financial Resources: Fair Insight/Judgement: Fair Intellectual Ability: Fair Physical Health: Fair Social Skills: Fair Stability in Family: Poor Verbal Skills: Fair Discharge Criteria Discharge Criteria: Adequate arrangements @DC, Adequate self-care, Improved behavior, Improved mood/thought Preliminary Discharge Plan Preliminary DC Plan: [facility] Other Arrangements: [facility] Special Precautions Special Precautions: Agitation/Assault, Suicide Risk, Swallowing/Choking Fall Risk: High Initial D/C Plan Return to [facility] once stable Identified Discharge Needs: F/U with PCP and out patient psychiatry thru the [place] Currently Utilized Resources Currently Utilized Resources/P: PCP [place] out patient [place] health services Identified Problems/Hx/Goals Objectives/Short-Term Goals Short Term Goals: Dec. Hallucination/Delus, Dec. Symp. Depression, Medication Stabilization, Monitor Med Effects, No Suicidal/Steve. ideation, Promote Coping Skill Short Term Goals in Patient's: Per Jacob, "Be normal as possible. Have social relations with people I have things in common with." Interventions/Frequency Staff Interventions/Frequency&: Nursing to provide routine safety checks, medication administration, and adl support. Psychiatry three times weekly. SW visit twice weekly. Recreational and SW groups as Jacob desires. 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 He stated that it was difficult to find consistent/stable work. He believes to have been diagnosed with mental illness while he was in the service and later went on disability. Social: Jacob has enjoyed coin collecting, history, and cats. Education: Jacob graduated from high school. 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 He has been medication compliant and spends most of his time in his room. He has attended four groups with minimal -moderate involvement. At times, he makes noises. He has paranoia/delusional thoughts believing that he is a confidential informant to the police and believes the nursing staff works for the government. Tentative d/c date early to mid next week. SW will update facility and send current notes for review. CANDACE HERNANDEZ Dec 28, 2020 14:31
--- NOTE | 2020-12-28 15:04 | NUR ---
Pt compliant and appropriate during shift. Complaint with medications. He has had a shower and appears with a generally friendly disposition. He is A&OX4, absent of SI/HI behaviors. He denies SI and HI, but reports a desire to "punch" no specific individual. He is able and willing to commit from acting out violently and has thus far been able to. He has been absent of delusional thinking thus far during shift and has been able to hold and maintain conversation with staff. Will pass on to the next shift.
[2020-12-28 15:23] VITALS: BP 125/77
--- NOTE | 2020-12-28 15:58 | NUR ---
Met with Jacob to review upcoming d/c plans with tentative d/c date of 01/02/21. Jacob expressed that he is in agreement to return to [facility] with the goal to continue to research the possibility of a future transfer to a [facility]. Jacob expressed he feels better emotionally when he is kept informed of his plan of care. He identifies that he can have a short fuse. TO acknowledged his insight and with that insight, comes better ability to manage emotions. Discussed walking away from situations and returning later or counting to ten to manage anger/frustration. TO left message for [facility] Shira ARIZA, with request call with intent to coordinate upcoming d/c. Faxed current notes, labs, and medication list to Shira for review. TO will also arrange for f/u appointments for out patient psychiatry at [facility].
[2020-12-28] MEDS: CHOLECALCIFEROL (VITAMIN D3) 1,000 UNIT TABLET PO SCH (20:01)
--- NOTE | 2020-12-28 21:03 | PDOC ---
Exam Note: Travis Note: Please also refer to the separate dictated note~for this date of service dictated separately.~Patient seen individually. Discussed the patient with Nursing staff reviewed the chart.~Reviewed interim history and current functioning. Reviewed vital signs,~Labs/ Radiology~and current medications noted below. Continue current treatment with the changes noted in the dictated addendum note Assessment: Vital Signs/I&O: Vital Signs Date Time Temp Pulse Resp B/P (MAP) Pulse Ox O2 Delivery O2 Flow Rate FiO2 12/28/20 15:23 97.3 85 16 125/77 (93) 100 Room Air I & O 12/27/20 12/27/20 12/28/20 14:59 22:59 06:59 Intake Total 600 ml 360 ml Balance 600 ml 360 ml Current Medications: Meds: Current Medications Medications (Trade) Dose Ordered Sig/Manpreet Route PRN Reason Start Time Stop Time Status Last Admin Dose Admin Acetaminophen (Tylenol) 650 mg PRN Q6HRS PRN PO MILD PAIN / TEMP > 100.3'F 12/18/20 22:15 12/18/20 23:22 DC Multi-Ingredient Ointment (Analgesic [place]) 1 deanna PRN QID PRN TP MUSCLE PAIN 12/18/20 22:15 Al Hydroxide/Mg Hydroxide (Mylanta Plus Xs) 15 ml PRN AFTMEALHC PRN PO DYSPEPSIA 12/18/20 22:15 Magnesium Hydroxide (Milk Of Magnesia) 2,400 mg PRN QHS PRN PO 1ST CHOICE CONSTIPATION 12/18/20 22:15 Acetaminophen (Tylenol) 650 mg PRN Q6HRS PRN PO MILD PAIN / TEMP > 100.3'F 12/18/20 23:15 12/28/20 12:40 Aspirin (Aspirin Chewable) 81 mg DAILY PO 12/19/20 09:00 12/28/20 08:01 Bisacodyl (Dulcolax Supp) 10 mg PRN DAILY PRN RC CONSTIPATION 12/18/20 23:15 Fluoxetine HCl (PROzac) 20 mg DAILY PO 12/19/20 09:00 12/28/20 08:01 Ketoconazole (Nizoral 2% Shampoo) 1 deanna QTUTHSA TP 12/19/20 16:00 12/21/20 16:19 DC Quetiapine Fumarate (SEROquel) 25 mg DAILY PO 12/19/20 09:00 12/20/20 17:39 DC 12/20/20 09:45 Quetiapine Fumarate (SEROquel) 50 mg QHS PO 12/19/20 21:00 12/20/20 17:39 DC 12/19/20 20:40 Albuterol Sulfate (Ventolin) 2.5 mg RTQID NEB 12/19/20 08:00 12/19/20 11:21 DC Docusate Sodium (Colace Solution) 50 mg BID PO 12/19/20 09:00 12/28/20 20:02 Pantoprazole Sodium (Protonix) 40 mg DAILYAC PO 12/19/20 07:30 12/28/20 08:01 Levetiracetam (Keppra) 1,000 mg BID PO 12/19/20 09:00 12/28/20 20:01 [place] Carbonate 300 mg BID PO 12/19/20 09:00 12/28/20 20:01 Polyethylene Glycol (miraLAX) 17 gm DAILY PO 12/19/20 09:00 12/28/20 08:01 Valproic Acid (Depakene) 500 mg DAILY PO 12/19/20 09:00 12/19/20 18:01 DC 12/19/20 10:04 Vitamin D (Vitamin D3) 2,000 unit QHS PO 12/19/20 21:00 12/28/20 20:01 Olanzapine (ZyPREXA ZYDIS) 5 mg PRN Q2HR PRN PO PSYCHOSIS 12/18/20 23:30 12/24/20 20:31 Albuterol Sulfate (Ventolin Hfa Inhaler) 1 puff QID INH 12/19/20 13:00 12/28/20 20:00 Valproic Acid (Depakene) 750 mg QHS PO 12/19/20 21:00 12/28/20 20:01 Valproic Acid (Depakene) 500 mg 0900,1700 PO 12/20/20 09:00 12/28/20 16:48 Multi-Ingred Cream/Lotion/Oil/ Oint (Hydrocerin) 1 deanna BID TP 12/20/20 16:00 12/28/20 20:01 Risperidone (RisperDAL) 0.25 mg 0800 PO 12/21/20 08:00 12/22/20 17:58 DC 12/22/20 05:27 Risperidone (RisperDAL) 0.5 mg HS PO 12/20/20 21:00 12/22/20 17:58 DC 12/21/20 19:45 Ketoconazole (Nizoral 2% Shampoo) 1 deanna QODAY TP 12/22/20 12:00 12/28/20 08:28 Risperidone (RisperDAL) 1.5 mg 1X ONCE PO 12/22/20 21:00 12/22/20 21:01 DC 12/22/20 20:36 Risperidone (RisperDAL) 1 mg BID PO 12/22/20 09:00 12/22/20 18:21 DC Risperidone (RisperDAL) 1 mg BID PO 12/23/20 09:00 12/28/20 20:01 I have reviewed the current psychotropics carefully including drug interactions. Risk benefit ratio favors no change other than as noted in my dictated progress note. Diagnosis: Problems: (1) Schizoaffective disorder, bipolar type (2) Anxiety disorder, unspecified (3) Bipolar disorder, curr episode mixed, severe, with psychotic features (4) Major depressive disorder with psychotic features ROSI OSORIO MD Dec 28, 2020 21:02
--- NOTE | 2020-12-28 21:32 | NUR ---
Nursing Note: Pt sitting up in w/c in his room at shift change. Pt calm, pleasant, and interactive with staff. Pt cooperative with assessment and compliant with medications administered whole.
[2020-12-29 05:48] VITALS: BP 159/91
[2020-12-29 06:29] LABS: BASO % 0 % (0-3); EOS % 0 % (0-3); HEMOGLOBIN 14.1 g/dL (13.0-17.5); LYMPH % 25 % (24-48); MEAN CORPUSCULAR HEMOGLOBIN 31 pg (25-35); MEAN CORPUSCULAR HGB CONC 33 g/dL (31-37); MEAN CORPUSCULAR VOLUME 95 fL (79-100); MONO # 0.3 x10^3/uL (0.0-1.1); MONO % 6 % (0-9); NEUT # 2.8 x10^3uL (1.8-7.7); NEUT % 68 % (31-73); PLATELET COUNT 105 x10^3/uL (140-400); RED BLOOD COUNT 4.51 x10^6/uL (4.30-5.70); RED CELL DISTRIBUTION WIDTH 14.1 % (11.5-14.5); WHITE BLOOD COUNT 4.1 x10^3/uL (4.0-11.0)
[2020-12-29 06:49] LABS: ALBUMIN 3.2 g/dL (3.4-5.0); ALBUMIN/GLOBULIN RATIO 0.9 (1.0-1.7); CALCIUM 9.3 mg/dL (8.5-10.1); CREATININE 0.9 mg/dL (0.7-1.3); GFR 85.8; POTASSIUM 4.1 mmol/L (3.5-5.1); TOTAL BILIRUBIN 0.3 mg/dL (0.2-1.0); TOTAL PROTEIN 6.7 g/dL (6.4-8.2)
[2020-12-29] MEDS: ALBUTEROL SULFATE 8GM INHALER. INH SCH ×4 (09:00→19:43)
[2020-12-29] MEDS: MINERAL OIL/PETROLATUM TOPICAL CREAM 113GM JAR. TP SCH ×2 (09:00→19:44)
[2020-12-29] MEDS: POLYETHYLENE GLYCOL 3350 17 GM PACKET. PO SCH (09:00)
[2020-12-29] MEDS: DOCUSATE 100 MG/10 ML SOLUTION. PO SCH (09:00)
[2020-12-29] MEDS: LITHIUM CARBONATE 300 MG TABLET PO SCH ×2 (09:32→19:44)
[2020-12-29] MEDS: levETIRAcetam 500 MG TABLET PO SCH ×2 (09:32→19:44)
[2020-12-29] MEDS: FLUoxetine HCL 20 MG CAPSULE PO SCH (09:32)
[2020-12-29] MEDS: ASPIRIN CHEWABLE 81 MG TABLET. PO SCH (09:33)
[2020-12-29] MEDS: PANTOPRAZOLE 40 MG TABLET. PO SCH (09:33)
[2020-12-29] MEDS: risperiDONE 1 MG TABLET. PO SCH ×2 (09:33→19:44)
[2020-12-29] MEDS: VALPROIC ACID 250 MG CAPSULE. PO SCH ×3 (09:33→19:43)
--- NOTE | 2020-12-29 11:39 | NUR ---
Patient laying in bed at time of assessment. Patient sits up to take medications and let me do assessment. He ate breakfast good and takes medications whole with no problems. Patient has no complaints and no further concerns at this time. Patient is alert and oriented. No complaints of SI or hurting anyone else. He is excited to go home soon.
--- NOTE | 2020-12-29 12:32 | NUR ---
TO has received no return call from TO Silva at [facility]. Call placed again to Shira to discuss upcoming d/c on 01/02/21. Shira confirmed she did receive the faxed update this worker sent on 12/28/20. Per Shira, a repeat Covid swab, is necessary. Discussion held with Shira about Jacob's desire to seek [facility]. Shira indicated she could follow with Jacob about this. [facility].
[2020-12-29 16:19] VITALS: BP 119/76
[2020-12-29] MEDS: CHOLECALCIFEROL (VITAMIN D3) 1,000 UNIT TABLET PO SCH (19:43)
--- NOTE | 2020-12-29 21:17 | NUR ---
Nursing Note: Pt sitting quietly in his room at shift change. Pt calm, pleasant, and interactive when approached. Denies SI/HI when asked, no delusions or agitation noted thus far this evening. Pt cooperative with assessment and compliant with medications administered whole.
[2020-12-30 05:27] VITALS: BP 129/79
[2020-12-30] MEDS: POLYETHYLENE GLYCOL 3350 17 GM PACKET. PO SCH (07:50)
[2020-12-30] MEDS: KETOCONAZOLE 2% SHAMPOO 120ML BOTTLE. TP SCH (07:51)
[2020-12-30] MEDS: FLUoxetine HCL 20 MG CAPSULE PO SCH (08:30)
[2020-12-30] MEDS: PANTOPRAZOLE 40 MG TABLET. PO SCH (08:30)
[2020-12-30] MEDS: VALPROIC ACID 250 MG CAPSULE. PO SCH ×3 (08:30→20:28)
[2020-12-30] MEDS: LITHIUM CARBONATE 300 MG TABLET PO SCH ×2 (08:30→20:28)
[2020-12-30] MEDS: ASPIRIN CHEWABLE 81 MG TABLET. PO SCH (08:30)
[2020-12-30] MEDS: levETIRAcetam 500 MG TABLET PO SCH ×2 (08:30→20:28)
[2020-12-30] MEDS: risperiDONE 1 MG TABLET. PO SCH ×2 (08:30→20:28)
[2020-12-30] MEDS: DOCUSATE SODIUM 100 MG CAPSULE PO SCH (08:31)
[2020-12-30] MEDS: MINERAL OIL/PETROLATUM TOPICAL CREAM 113GM JAR. TP SCH ×2 (08:31→20:28)
[2020-12-30] MEDS: ALBUTEROL SULFATE 8GM INHALER. INH SCH ×4 (08:31→20:28)
--- NOTE | 2020-12-30 09:26 | NUR ---
Patient calm and cooperative this morning. patient compliant with assessment and medication administration. Patient has no further needs at this time.
[2020-12-30 15:45] VITALS: BP 132/80
[2020-12-30] MEDS: CHOLECALCIFEROL (VITAMIN D3) 1,000 UNIT TABLET PO SCH (20:27)
--- NOTE | 2020-12-30 21:17 | PDOC ---
Exam Note: Travis Note: Please also refer to the separate dictated note~for this date of service dictated separately.~Patient seen individually. Discussed the patient with Nursing staff reviewed the chart.~Reviewed interim history and current functioning. Reviewed vital signs,~Labs/ Radiology~and current medications noted below. Continue current treatment with the changes noted in the dictated addendum note Assessment: Vital Signs/I&O: Vital Signs Date Time Temp Pulse Resp B/P (MAP) Pulse Ox O2 Delivery O2 Flow Rate FiO2 12/30/20 15:45 98.4 77 16 132/80 (97) 100 12/30/20 05:27 Room Air I & O 12/29/20 12/29/20 12/30/20 15:00 23:00 07:00 Intake Total 600 ml 480 ml Balance 600 ml 480 ml Current Medications: Meds: Current Medications Medications (Trade) Dose Ordered Sig/Manpreet Route PRN Reason Start Time Stop Time Status Last Admin Dose Admin Docusate Sodium (Colace) 100 mg DAILY PO 12/30/20 09:00 12/30/20 08:31 I have reviewed the current psychotropics carefully including drug interactions. Risk benefit ratio favors no change other than as noted in my dictated progress note. Diagnosis: Problems: (1) Schizoaffective disorder, bipolar type (2) Anxiety disorder, unspecified (3) Bipolar disorder, curr episode mixed, severe, with psychotic features (4) Major depressive disorder with psychotic features ROSI OSORIO MD Dec 30, 2020 21:17
--- NOTE | 2020-12-30 21:17 | PDOC ---
Exam Note: Travis Note: Late entry for 12/29/2020. Please also refer to the separate dictated note~for this date of service dictated separately.~Patient seen individually. Discussed the patient with Nursing staff reviewed the chart.~Reviewed interim history and current functioning. Reviewed vital signs,~Labs/ Radiology~and current medic ations noted below. Continue current treatment with the changes noted in the dictated addendum note Assessment: Vital Signs/I&O: Vital Signs Date Time Temp Pulse Resp B/P (MAP) Pulse Ox O2 Delivery O2 Flow Rate FiO2 12/30/20 15:45 98.4 77 16 132/80 (97) 100 12/30/20 05:27 Room Air I & O 12/29/20 12/29/20 12/30/20 15:00 23:00 07:00 Intake Total 600 ml 480 ml Balance 600 ml 480 ml Current Medications: Meds: Current Medications Medications (Trade) Dose Ordered Sig/Manpreet Route PRN Reason Start Time Stop Time Status Last Admin Dose Admin Docusate Sodium (Colace) 100 mg DAILY PO 12/30/20 09:00 12/30/20 08:31 I have reviewed the current psychotropics carefully including drug interactions. Risk benefit ratio favors no change other than as noted in my dictated progress note. Diagnosis: Problems: (1) Schizoaffective disorder, bipolar type (2) Anxiety disorder, unspecified (3) Bipolar disorder, curr episode mixed, severe, with psychotic features (4) Major depressive disorder with psychotic features ROSI OSORIO MD Dec 30, 2020 21:17
[2020-12-31 06:22] VITALS: BP 113/72
[2020-12-31] MEDS: LITHIUM CARBONATE 300 MG TABLET PO SCH ×2 (08:18→18:42)
[2020-12-31] MEDS: VALPROIC ACID 250 MG CAPSULE. PO SCH ×3 (08:18→18:42)
[2020-12-31] MEDS: FLUoxetine HCL 20 MG CAPSULE PO SCH (08:18)
[2020-12-31] MEDS: ALBUTEROL SULFATE 8GM INHALER. INH SCH ×4 (08:18→20:47)
[2020-12-31] MEDS: PANTOPRAZOLE 40 MG TABLET. PO SCH (08:18)
[2020-12-31] MEDS: DOCUSATE SODIUM 100 MG CAPSULE PO SCH (08:18)
[2020-12-31] MEDS: ASPIRIN CHEWABLE 81 MG TABLET. PO SCH (08:18)
[2020-12-31] MEDS: risperiDONE 1 MG TABLET. PO SCH ×2 (08:18→18:42)
[2020-12-31] MEDS: levETIRAcetam 500 MG TABLET PO SCH ×2 (08:18→18:42)
[2020-12-31] MEDS: MINERAL OIL/PETROLATUM TOPICAL CREAM 113GM JAR. TP SCH ×2 (08:19→18:42)
--- NOTE | 2020-12-31 15:22 | NUR ---
Patient calm and cooperative. Patient resting in room most of the day, only coming out for meal times. patient has no further needs at this time.
[2020-12-31 15:34] VITALS: BP 102/60
[2020-12-31] MEDS: CHOLECALCIFEROL (VITAMIN D3) 1,000 UNIT TABLET PO SCH (18:42)
--- NOTE | 2020-12-31 20:53 | PDOC ---
Exam Note: Travis Note: Please also refer to the separate dictated note~for this date of service dictated separately.~Patient seen individually. Discussed the patient with Nursing staff reviewed the chart.~Reviewed interim history and current functioning. Reviewed vital signs,~Labs/ Radiology~and current medications noted below. Continue current treatment with the changes noted in the dictated addendum note Assessment: Vital Signs/I&O: Vital Signs Date Time Temp Pulse Resp B/P (MAP) Pulse Ox O2 Delivery O2 Flow Rate FiO2 12/31/20 15:34 97.4 78 18 102/60 (74) 99 12/30/20 05:27 Room Air I & O 12/30/20 12/30/20 12/31/20 15:00 23:00 07:00 Intake Total 600 ml 480 ml Balance 600 ml 480 ml Labs: Laboratory Tests Test 12/31/20 05:40 Glucose (Fingerstick) 122 mg/dL (70-99) H Current Medications: I have reviewed the current psychotropics carefully including drug interactions. Risk benefit ratio favors no change other than as noted in my dictated progress note. Diagnosis: Problems: (1) Schizoaffective disorder, bipolar type (2) Anxiety disorder, unspecified (3) Bipolar disorder, curr episode mixed, severe, with psychotic features (4) Major depressive disorder with psychotic features ROSI OSORIO MD Dec 31, 2020 20:53
--- NOTE | 2020-12-31 22:52 | NUR ---
Pt withdrawn to his room all evening. Compliant with whole medications. Pleasant and cooperative.
[2021-01-01 06:28] VITALS: BP 138/80
--- NOTE | 2021-01-01 07:07 | PDOC ---
Exam Note: Travis Note: This note is a late entry for 12/28/2020 covers elements not covered in my initial note. Subjective: The patient was seen face to face in the evening of 12/28/2020 with Shira MARK, discussed and reviewed the chart. The patient slept 6-1/2 hours previous night. He spends much time in his room. He has some swallowing problems. He remains on honey thickened liquids but hiding cups to have regular water, somewhat paranoid, but no suicidal or homicidal ideation. No hallucinations. Review of Systems: Ambulation impaired with walker and wheelchair. I met with him in his room. No CV, , pulmonary, eye, ENT system symptoms on review. Mental Status Exam: The patient is reasonably oriented. Speech is coherent, has some latency. Abstraction is fair. Computation impaired. Language function is intact. Mood and affect little withdrawn, but specific. When I questioned him specifically denied suicidal or homicidal ideation or psychotic symptoms. Laboratory Data: Reviewed. Impression: Schizoaffective disorder bipolar type, mixed with psychotic features. Anxiety disorder unspecified. Impulse control disorder unspecified. Plan: No change from initial note. Assessment: Vital Signs/I&O: Vital Signs Date Time Temp Pulse Resp B/P (MAP) Pulse Ox O2 Delivery O2 Flow Rate FiO2 01/01/21 06:28 98.0 79 18 138/80 (99) 100 Room Air I & O 12/31/20 12/31/20 01/01/21 15:00 23:00 07:00 Intake Total 840 ml 480 ml 120 ml Balance 840 ml 480 ml 120 ml Current Medications: Meds: Current Medications Medications (Trade) Dose Ordered Sig/Manpreet Route PRN Reason Start Time Stop Time Status Last Admin Dose Admin Acetaminophen (Tylenol) 650 mg PRN Q6HRS PRN PO MILD PAIN / TEMP > 100.3'F 12/18/20 22:15 12/18/20 23:22 DC Multi-Ingredient Ointment (Analgesic [place]) 1 deanna PRN QID PRN TP MUSCLE PAIN 12/18/20 22:15 Al Hydroxide/Mg Hydroxide (Mylanta Plus Xs) 15 ml PRN AFTMEALHC PRN PO DYSPEPSIA 12/18/20 22:15 Magnesium Hydroxide (Milk Of Magnesia) 2,400 mg PRN QHS PRN PO 1ST CHOICE CONSTIPATION 12/18/20 22:15 Acetaminophen (Tylenol) 650 mg PRN Q6HRS PRN PO MILD PAIN / TEMP > 100.3'F 12/18/20 23:15 12/28/20 12:40 Aspirin (Aspirin Chewable) 81 mg DAILY PO 12/19/20 09:00 12/31/20 08:18 Bisacodyl (Dulcolax Supp) 10 mg PRN DAILY PRN RC CONSTIPATION 12/18/20 23:15 Fluoxetine HCl (PROzac) 20 mg DAILY PO 12/19/20 09:00 12/31/20 08:18 Ketoconazole (Nizoral 2% Shampoo) 1 deanna QTUTHSA TP 12/19/20 16:00 12/21/20 16:19 DC Quetiapine Fumarate (SEROquel) 25 mg DAILY PO 12/19/20 09:00 12/20/20 17:39 DC 12/20/20 09:45 Quetiapine Fumarate (SEROquel) 50 mg QHS PO 12/19/20 21:00 12/20/20 17:39 DC 12/19/20 20:40 Albuterol Sulfate (Ventolin) 2.5 mg RTQID NEB 12/19/20 08:00 12/19/20 11:21 DC Docusate Sodium (Colace Solution) 50 mg BID PO 12/19/20 09:00 12/29/20 18:05 DC 12/28/20 20:02 Pantoprazole Sodium (Protonix) 40 mg DAILYAC PO 12/19/20 07:30 12/31/20 08:18 Levetiracetam (Keppra) 1,000 mg BID PO 12/19/20 09:00 12/31/20 18:42 [place] Carbonate 300 mg BID PO 12/19/20 09:00 12/31/20 18:42 Polyethylene Glycol (miraLAX) 17 gm DAILY PO 12/19/20 09:00 12/30/20 16:58 DC 12/28/20 08:01 Valproic Acid (Depakene) 500 mg DAILY PO 12/19/20 09:00 12/19/20 18:01 DC 12/19/20 10:04 Vitamin D (Vitamin D3) 2,000 unit QHS PO 12/19/20 21:00 12/31/20 18:42 Olanzapine (ZyPREXA ZYDIS) 5 mg PRN Q2HR PRN PO PSYCHOSIS 12/18/20 23:30 12/24/20 20:31 Albuterol Sulfate (Ventolin Hfa Inhaler) 1 puff QID INH 12/19/20 13:00 12/31/20 20:47 Valproic Acid (Depakene) 750 mg QHS PO 12/19/20 21:00 12/31/20 18:42 Valproic Acid (Depakene) 500 mg 0900,1700 PO 12/20/20 09:00 12/31/20 17:17 Multi-Ingred Cream/Lotion/Oil/ Oint (Hydrocerin) 1 deanna BID TP 12/20/20 16:00 12/31/20 18:42 Risperidone (RisperDAL) 0.25 mg 0800 PO 12/21/20 08:00 12/22/20 17:58 DC 12/22/20 05:27 Risperidone (RisperDAL) 0.5 mg HS PO 12/20/20 21:00 12/22/20 17:58 DC 12/21/20 19:45 Ketoconazole (Nizoral 2% Shampoo) 1 deanna QODAY TP 12/22/20 12:00 12/28/20 08:28 Risperidone (RisperDAL) 1.5 mg 1X ONCE PO 12/22/20 21:00 12/22/20 21:01 DC 12/22/20 20:36 Risperidone (RisperDAL) 1 mg BID PO 12/22/20 09:00 12/22/20 18:21 DC Risperidone (RisperDAL) 1 mg BID PO 12/23/20 09:00 12/31/20 18:42 Docusate Sodium (Colace) 100 mg DAILY PO 12/30/20 09:00 12/31/20 08:18 I have reviewed the current psychotropics carefully including drug interactions. Risk benefit ratio favors no change other than as noted in my dictated progress note. Diagnosis: Problems: (1) Schizoaffective disorder, bipolar type (2) Anxiety disorder, unspecified (3) Bipolar disorder, curr episode mixed, severe, with psychotic features ROSI OSORIO MD Jan 01, 2021 07:07
[2021-01-01] MEDS: PANTOPRAZOLE 40 MG TABLET. PO SCH (07:30)
--- NOTE | 2021-01-01 07:42 | PDOC ---
Exam Note: Travis Note: This note is a late entry for 12/29/2020 covers elements not covered in my initial note. Subjective: The patient was seen face to face in the evening of 12/29/2020 with Anneliese MARK, discussed and reviewed the chart. The patient slept 8 hours previous night. No suicidal or homicidal ideation. Overall he is doing better. Review of Systems: Ambulation impaired with walker. No CV, , pulmonary, eye, ENT system symptoms on review. Mental Status Exam: The patient is reasonably oriented. I met with him in his room at some length. Speech is coherent. Abstraction is fair. Computation impaired. Language function is intact. Mood and affect less anxious and labile. No suicidal or homicidal ideation. Laboratory Data: Reviewed. Impression: Schizoaffective disorder bipolar type, mixed with psychotic features. Anxiety disorder unspecified. Impulse control disorder unspecified. Plan: No change from initial note. Assessment: Vital Signs/I&O: Vital Signs Date Time Temp Pulse Resp B/P (MAP) Pulse Ox O2 Delivery O2 Flow Rate FiO2 01/01/21 06:28 98.0 79 18 138/80 (99) 100 Room Air I & O 12/31/20 12/31/20 01/01/21 15:00 23:00 07:00 Intake Total 840 ml 480 ml 120 ml Balance 840 ml 480 ml 120 ml Current Medications: Meds: Current Medications Medications (Trade) Dose Ordered Sig/Manpreet Route PRN Reason Start Time Stop Time Status Last Admin Dose Admin Acetaminophen (Tylenol) 650 mg PRN Q6HRS PRN PO MILD PAIN / TEMP > 100.3'F 12/18/20 22:15 12/18/20 23:22 DC Multi-Ingredient Ointment (Analgesic [place]) 1 deanna PRN QID PRN TP MUSCLE PAIN 12/18/20 22:15 Al Hydroxide/Mg Hydroxide (Mylanta Plus Xs) 15 ml PRN AFTMEALHC PRN PO DYSPEPSIA 12/18/20 22:15 Magnesium Hydroxide (Milk Of Magnesia) 2,400 mg PRN QHS PRN PO 1ST CHOICE CONSTIPATION 12/18/20 22:15 Acetaminophen (Tylenol) 650 mg PRN Q6HRS PRN PO MILD PAIN / TEMP > 100.3'F 12/18/20 23:15 12/28/20 12:40 Aspirin (Aspirin Chewable) 81 mg DAILY PO 12/19/20 09:00 12/31/20 08:18 Bisacodyl (Dulcolax Supp) 10 mg PRN DAILY PRN RC CONSTIPATION 12/18/20 23:15 Fluoxetine HCl (PROzac) 20 mg DAILY PO 12/19/20 09:00 12/31/20 08:18 Ketoconazole (Nizoral 2% Shampoo) 1 deanna QTUTHSA TP 12/19/20 16:00 12/21/20 16:19 DC Quetiapine Fumarate (SEROquel) 25 mg DAILY PO 12/19/20 09:00 12/20/20 17:39 DC 12/20/20 09:45 Quetiapine Fumarate (SEROquel) 50 mg QHS PO 12/19/20 21:00 12/20/20 17:39 DC 12/19/20 20:40 Albuterol Sulfate (Ventolin) 2.5 mg RTQID NEB 12/19/20 08:00 12/19/20 11:21 DC Docusate Sodium (Colace Solution) 50 mg BID PO 12/19/20 09:00 12/29/20 18:05 DC 12/28/20 20:02 Pantoprazole Sodium (Protonix) 40 mg DAILYAC PO 12/19/20 07:30 12/31/20 08:18 Levetiracetam (Keppra) 1,000 mg BID PO 12/19/20 09:00 12/31/20 18:42 [place] Carbonate 300 mg BID PO 12/19/20 09:00 12/31/20 18:42 Polyethylene Glycol (miraLAX) 17 gm DAILY PO 12/19/20 09:00 12/30/20 16:58 DC 12/28/20 08:01 Valproic Acid (Depakene) 500 mg DAILY PO 12/19/20 09:00 12/19/20 18:01 DC 12/19/20 10:04 Vitamin D (Vitamin D3) 2,000 unit QHS PO 12/19/20 21:00 12/31/20 18:42 Olanzapine (ZyPREXA ZYDIS) 5 mg PRN Q2HR PRN PO PSYCHOSIS 12/18/20 23:30 12/24/20 20:31 Albuterol Sulfate (Ventolin Hfa Inhaler) 1 puff QID INH 12/19/20 13:00 12/31/20 20:47 Valproic Acid (Depakene) 750 mg QHS PO 12/19/20 21:00 12/31/20 18:42 Valproic Acid (Depakene) 500 mg 0900,1700 PO 12/20/20 09:00 12/31/20 17:17 Multi-Ingred Cream/Lotion/Oil/ Oint (Hydrocerin) 1 deanna BID TP 12/20/20 16:00 12/31/20 18:42 Risperidone (RisperDAL) 0.25 mg 0800 PO 12/21/20 08:00 12/22/20 17:58 DC 12/22/20 05:27 Risperidone (RisperDAL) 0.5 mg HS PO 12/20/20 21:00 12/22/20 17:58 DC 12/21/20 19:45 Ketoconazole (Nizoral 2% Shampoo) 1 deanna QODAY TP 12/22/20 12:00 12/28/20 08:28 Risperidone (RisperDAL) 1.5 mg 1X ONCE PO 12/22/20 21:00 12/22/20 21:01 DC 12/22/20 20:36 Risperidone (RisperDAL) 1 mg BID PO 12/22/20 09:00 12/22/20 18:21 DC Risperidone (RisperDAL) 1 mg BID PO 12/23/20 09:00 12/31/20 18:42 Docusate Sodium (Colace) 100 mg DAILY PO 12/30/20 09:00 12/31/20 08:18 I have reviewed the current psychotropics carefully including drug interactions. Risk benefit ratio favors no change other than as noted in my dictated progress note. Diagnosis: Problems: (1) Schizoaffective disorder, bipolar type (2) Anxiety disorder, unspecified (3) Bipolar disorder, curr episode mixed, severe, with psychotic features ROSI OSORIO MD Jan 01, 2021 07:42
--- NOTE | 2021-01-01 08:08 | PDOC ---
Exam Note: Travis Note: This note is a late entry for 12/30/2020 covers elements not covered in my initial note. Subjective: The patient was seen face to face in the evening of 12/30/2020 with Jean MARK, discussed and reviewed the chart. The patient slept 8-1/2 hours previous night. Overall he is doing better. He has not been hiding any cutlery like he did many days back. No suicidal or homicidal ideation. Review of Systems: Ambulation impaired with walker. No CV, , pulmonary, eye, ENT system symptoms on review. Mental Status Exam: The patient is reasonably oriented. As I met with the patient he stated he talked to his sister who lives in [place]. He was able to relate she is on disability and he is happy to have her support even at the jail that she does not have psyche disorder like he does. Abstraction is fair. Computation impaired. Language function is intact. Mood and affect less anxious and labile. No suicidal or homicidal ideation as I specifically questioned him on this. Laboratory Data: Reviewed. Impression: Schizoaffective disorder bipolar type, mixed with psychotic features. Anxiety disorder unspecified. Impulse control disorder unspecified. Plan: Continue current psychotropics. Possible discharge back to jail Friday01/02/2021. Assessment: Vital Signs/I&O: Vital Signs Date Time Temp Pulse Resp B/P (MAP) Pulse Ox O2 Delivery O2 Flow Rate FiO2 01/01/21 06:28 98.0 79 18 138/80 (99) 100 Room Air I & O 12/31/20 12/31/20 01/01/21 15:00 23:00 07:00 Intake Total 840 ml 480 ml 120 ml Balance 840 ml 480 ml 120 ml Current Medications: Meds: Current Medications Medications (Trade) Dose Ordered Sig/Manpreet Route PRN Reason Start Time Stop Time Status Last Admin Dose Admin Acetaminophen (Tylenol) 650 mg PRN Q6HRS PRN PO MILD PAIN / TEMP > 100.3'F 12/18/20 22:15 12/18/20 23:22 DC Multi-Ingredient Ointment (Analgesic [place]) 1 deanna PRN QID PRN TP MUSCLE PAIN 12/18/20 22:15 Al Hydroxide/Mg Hydroxide (Mylanta Plus Xs) 15 ml PRN AFTMEALHC PRN PO DYSPEPSIA 12/18/20 22:15 Magnesium Hydroxide (Milk Of Magnesia) 2,400 mg PRN QHS PRN PO 1ST CHOICE CONSTIPATION 12/18/20 22:15 Acetaminophen (Tylenol) 650 mg PRN Q6HRS PRN PO MILD PAIN / TEMP > 100.3'F 12/18/20 23:15 12/28/20 12:40 Aspirin (Aspirin Chewable) 81 mg DAILY PO 12/19/20 09:00 12/31/20 08:18 Bisacodyl (Dulcolax Supp) 10 mg PRN DAILY PRN RC CONSTIPATION 12/18/20 23:15 Fluoxetine HCl (PROzac) 20 mg DAILY PO 12/19/20 09:00 12/31/20 08:18 Ketoconazole (Nizoral 2% Shampoo) 1 deanna QTUTHSA TP 12/19/20 16:00 12/21/20 16:19 DC Quetiapine Fumarate (SEROquel) 25 mg DAILY PO 12/19/20 09:00 12/20/20 17:39 DC 12/20/20 09:45 Quetiapine Fumarate (SEROquel) 50 mg QHS PO 12/19/20 21:00 12/20/20 17:39 DC 12/19/20 20:40 Albuterol Sulfate (Ventolin) 2.5 mg RTQID NEB 12/19/20 08:00 12/19/20 11:21 DC Docusate Sodium (Colace Solution) 50 mg BID PO 12/19/20 09:00 12/29/20 18:05 DC 12/28/20 20:02 Pantoprazole Sodium (Protonix) 40 mg DAILYAC PO 12/19/20 07:30 12/31/20 08:18 Levetiracetam (Keppra) 1,000 mg BID PO 12/19/20 09:00 12/31/20 18:42 [place] Carbonate 300 mg BID PO 12/19/20 09:00 12/31/20 18:42 Polyethylene Glycol (miraLAX) 17 gm DAILY PO 12/19/20 09:00 12/30/20 16:58 DC 12/28/20 08:01 Valproic Acid (Depakene) 500 mg DAILY PO 12/19/20 09:00 12/19/20 18:01 DC 12/19/20 10:04 Vitamin D (Vitamin D3) 2,000 unit QHS PO 12/19/20 21:00 12/31/20 18:42 Olanzapine (ZyPREXA ZYDIS) 5 mg PRN Q2HR PRN PO PSYCHOSIS 12/18/20 23:30 12/24/20 20:31 Albuterol Sulfate (Ventolin Hfa Inhaler) 1 puff QID INH 12/19/20 13:00 12/31/20 20:47 Valproic Acid (Depakene) 750 mg QHS PO 12/19/20 21:00 12/31/20 18:42 Valproic Acid (Depakene) 500 mg 0900,1700 PO 12/20/20 09:00 12/31/20 17:17 Multi-Ingred Cream/Lotion/Oil/ Oint (Hydrocerin) 1 deanna BID TP 12/20/20 16:00 12/31/20 18:42 Risperidone (RisperDAL) 0.25 mg 0800 PO 12/21/20 08:00 12/22/20 17:58 DC 12/22/20 05:27 Risperidone (RisperDAL) 0.5 mg HS PO 12/20/20 21:00 12/22/20 17:58 DC 12/21/20 19:45 Ketoconazole (Nizoral 2% Shampoo) 1 deanna QODAY TP 12/22/20 12:00 12/28/20 08:28 Risperidone (RisperDAL) 1.5 mg 1X ONCE PO 12/22/20 21:00 12/22/20 21:01 DC 12/22/20 20:36 Risperidone (RisperDAL) 1 mg BID PO 12/22/20 09:00 12/22/20 18:21 DC Risperidone (RisperDAL) 1 mg BID PO 12/23/20 09:00 12/31/20 18:42 Docusate Sodium (Colace) 100 mg DAILY PO 12/30/20 09:00 12/31/20 08:18 I have reviewed the current psychotropics carefully including drug interactions. Risk benefit ratio favors no change other than as noted in my dictated progress note. Diagnosis: Problems: (1) Schizoaffective disorder, bipolar type (2) Anxiety disorder, unspecified (3) Bipolar disorder, curr episode mixed, severe, with psychotic features DEVON,MAN M MD Jan 01, 2021 08:08
--- NOTE | 2021-01-01 08:35 | PDOC ---
Exam Note: Travis Note: This note is a late entry for 12/31/2020 covers elements not covered in my initial note. Subjective: The patient was seen face to face in the evening of 12/31/2020 with Jean MARK, discussed and reviewed the chart. The patient slept 7 hours previous night. Overall he has had a decent day per nursing report. The patient spends much time in his room. Denies psychotic symptoms, suicidal or homicidal ideation. Review of Systems: Ambulation impaired in wheelchair/walker. No CV, , pulmonary, eye, ENT system symptoms on review. Mental Status Exam: The patient is reasonably oriented. Speech is coherent, has some latency. Abstraction is fair. Computation impaired. Language functi on is intact. Mood and affect is improved, still withdrawn. No suicidal or homicidal ideation. Laboratory Data: Reviewed. Valproic acid level is therapeutic at 71. [place] 0.8. Impression: Schizoaffective disorder bipolar type, mixed with psychotic features. Anxiety disorder unspecified. Impulse control disorder unspecified. Plan: No change from initial note. Transition to longterm in a couple of days. Assessment: Vital Signs/I&O: Vital Signs Date Time Temp Pulse Resp B/P (MAP) Pulse Ox O2 Delivery O2 Flow Rate FiO2 01/01/21 06:28 98.0 79 18 138/80 (99) 100 Room Air I & O 12/31/20 12/31/20 01/01/21 15:00 23:00 07:00 Intake Total 840 ml 480 ml 120 ml Balance 840 ml 480 ml 120 ml Current Medications: Meds: Current Medications Medications (Trade) Dose Ordered Sig/Manpreet Route PRN Reason Start Time Stop Time Status Last Admin Dose Admin Acetaminophen (Tylenol) 650 mg PRN Q6HRS PRN PO MILD PAIN / TEMP > 100.3'F 12/18/20 22:15 12/18/20 23:22 DC Multi-Ingredient Ointment (Analgesic [place]) 1 deanna PRN QID PRN TP MUSCLE PAIN 12/18/20 22:15 Al Hydroxide/Mg Hydroxide (Mylanta Plus Xs) 15 ml PRN AFTMEALHC PRN PO DYSPEPSIA 12/18/20 22:15 Magnesium Hydroxide (Milk Of Magnesia) 2,400 mg PRN QHS PRN PO 1ST CHOICE CONSTIPATION 12/18/20 22:15 Acetaminophen (Tylenol) 650 mg PRN Q6HRS PRN PO MILD PAIN / TEMP > 100.3'F 12/18/20 23:15 12/28/20 12:40 Aspirin (Aspirin Chewable) 81 mg DAILY PO 12/19/20 09:00 12/31/20 08:18 Bisacodyl (Dulcolax Supp) 10 mg PRN DAILY PRN RC CONSTIPATION 12/18/20 23:15 Fluoxetine HCl (PROzac) 20 mg DAILY PO 12/19/20 09:00 12/31/20 08:18 Ketoconazole (Nizoral 2% Shampoo) 1 deanna QTUTHSA TP 12/19/20 16:00 12/21/20 16:19 DC Quetiapine Fumarate (SEROquel) 25 mg DAILY PO 12/19/20 09:00 12/20/20 17:39 DC 12/20/20 09:45 Quetiapine Fumarate (SEROquel) 50 mg QHS PO 12/19/20 21:00 12/20/20 17:39 DC 12/19/20 20:40 Albuterol Sulfate (Ventolin) 2.5 mg RTQID NEB 12/19/20 08:00 12/19/20 11:21 DC Docusate Sodium (Colace Solution) 50 mg BID PO 12/19/20 09:00 12/29/20 18:05 DC 12/28/20 20:02 Pantoprazole Sodium (Protonix) 40 mg DAILYAC PO 12/19/20 07:30 12/31/20 08:18 Levetiracetam (Keppra) 1,000 mg BID PO 12/19/20 09:00 12/31/20 18:42 [place] Carbonate 300 mg BID PO 12/19/20 09:00 12/31/20 18:42 Polyethylene Glycol (miraLAX) 17 gm DAILY PO 12/19/20 09:00 12/30/20 16:58 DC 12/28/20 08:01 Valproic Acid (Depakene) 500 mg DAILY PO 12/19/20 09:00 12/19/20 18:01 DC 12/19/20 10:04 Vitamin D (Vitamin D3) 2,000 unit QHS PO 12/19/20 21:00 12/31/20 18:42 Olanzapine (ZyPREXA ZYDIS) 5 mg PRN Q2HR PRN PO PSYCHOSIS 12/18/20 23:30 12/24/20 20:31 Albuterol Sulfate (Ventolin Hfa Inhaler) 1 puff QID INH 12/19/20 13:00 12/31/20 20:47 Valproic Acid (Depakene) 750 mg QHS PO 12/19/20 21:00 12/31/20 18:42 Valproic Acid (Depakene) 500 mg 0900,1700 PO 12/20/20 09:00 12/31/20 17:17 Multi-Ingred Cream/Lotion/Oil/ Oint (Hydrocerin) 1 deanna BID TP 12/20/20 16:00 12/31/20 18:42 Risperidone (RisperDAL) 0.25 mg 0800 PO 12/21/20 08:00 12/22/20 17:58 DC 12/22/20 05:27 Risperidone (RisperDAL) 0.5 mg HS PO 12/20/20 21:00 12/22/20 17:58 DC 12/21/20 19:45 Ketoconazole (Nizoral 2% Shampoo) 1 deanna QODAY TP 12/22/20 12:00 12/28/20 08:28 Risperidone (RisperDAL) 1.5 mg 1X ONCE PO 12/22/20 21:00 12/22/20 21:01 DC 12/22/20 20:36 Risperidone (RisperDAL) 1 mg BID PO 12/22/20 09:00 12/22/20 18:21 DC Risperidone (RisperDAL) 1 mg BID PO 12/23/20 09:00 12/31/20 18:42 Docusate Sodium (Colace) 100 mg DAILY PO 12/30/20 09:00 12/31/20 08:18 I have reviewed the current psychotropics carefully including drug interactions. Risk benefit ratio favors no change other than as noted in my dictated progress note. Diagnosis: Problems: (1) Schizoaffective disorder, bipolar type (2) Anxiety disorder, unspecified (3) Bipolar disorder, curr episode mixed, severe, with psychotic features ROSI OSORIO MD Jan 01, 2021 08:35
[2021-01-01] MEDS: levETIRAcetam 500 MG TABLET PO SCH ×2 (09:00→20:52)
[2021-01-01] MEDS: LITHIUM CARBONATE 300 MG TABLET PO SCH ×2 (09:00→20:52)
[2021-01-01] MEDS: risperiDONE 1 MG TABLET. PO SCH ×2 (09:00→20:52)
[2021-01-01] MEDS: ALBUTEROL SULFATE 8GM INHALER. INH SCH ×4 (09:00→20:53)
[2021-01-01] MEDS: ASPIRIN CHEWABLE 81 MG TABLET. PO SCH (09:00)
[2021-01-01] MEDS: KETOCONAZOLE 2% SHAMPOO 120ML BOTTLE. TP SCH (09:00)
[2021-01-01] MEDS: VALPROIC ACID 250 MG CAPSULE. PO SCH ×3 (09:00→20:52)
[2021-01-01] MEDS: FLUoxetine HCL 20 MG CAPSULE PO SCH (09:00)
[2021-01-01] MEDS: MINERAL OIL/PETROLATUM TOPICAL CREAM 113GM JAR. TP SCH ×2 (09:00→20:53)
[2021-01-01] MEDS: DOCUSATE SODIUM 100 MG CAPSULE PO SCH (09:00)
--- NOTE | 2021-01-01 12:04 | NUR ---
See downtime med rec for am medication administration.
--- NOTE | 2021-01-01 12:41 | NUR ---
OT attempted to contact [facility]. Due to the Federal holiday, the office was closed. TO will attempt to schedule a f/u appointment at the [facility] tomorrow. Addendum: 01/01/21 at 1619 by CANDACE ARIZA After review with Jacob Martel's discharge will be postponed until 01/03/21 due to his nursing facility's request related to the weather and sub zero temperatures and concern for safety.
[2021-01-01 16:11] VITALS: BP 146/98
--- NOTE | 2021-01-01 18:10 | NUR ---
Pt med complaint and cooperative this shift. He denies SI/HI/VH/AH/pain. He has spent most of the day in his room. Per ST, he has been changed to puree diet and remains on honey thick liquids until they are able to travel from [facility] to [facility] for a consult. D/t weather they are unable to at this time and anticipate a consult to occur tomorrow (01/02/21). Will pass on to the next shift.
[2021-01-01] MEDS: CHOLECALCIFEROL (VITAMIN D3) 1,000 UNIT TABLET PO SCH (20:52)
--- NOTE | 2021-01-01 21:05 | PDOC ---
Exam Note: Travis Note: Please also refer to the separate dictated note~for this date of service dictated separately.~Patient seen individually. Discussed the patient with Nursing staff reviewed the chart.~Reviewed interim history and current functioning. Reviewed vital signs,~Labs/ Radiology~and current medications noted below. Continue current treatment with the changes noted in the dictated addendum note Assessment: Vital Signs/I&O: Vital Signs Date Time Temp Pulse Resp B/P (MAP) Pulse Ox O2 Delivery O2 Flow Rate FiO2 01/01/21 16:11 97.0 78 18 146/98 (114) 100 01/01/21 06:28 Room Air I & O 12/31/20 12/31/20 01/01/21 15:00 23:00 07:00 Intake Total 840 ml 480 ml 120 ml Balance 840 ml 480 ml 120 ml Current Medications: Meds: Current Medications Medications (Trade) Dose Ordered Sig/Manpreet Route PRN Reason Start Time Stop Time Status Last Admin Dose Admin Acetaminophen (Tylenol) 650 mg PRN Q6HRS PRN PO MILD PAIN / TEMP > 100.3'F 12/18/20 22:15 12/18/20 23:22 DC Multi-Ingredient Ointment (Analgesic [place]) 1 deanna PRN QID PRN TP MUSCLE PAIN 12/18/20 22:15 Al Hydroxide/Mg Hydroxide (Mylanta Plus Xs) 15 ml PRN AFTMEALHC PRN PO DYSPEPSIA 12/18/20 22:15 Magnesium Hydroxide (Milk Of Magnesia) 2,400 mg PRN QHS PRN PO 1ST CHOICE CONSTIPATION 12/18/20 22:15 Acetaminophen (Tylenol) 650 mg PRN Q6HRS PRN PO MILD PAIN / TEMP > 100.3'F 12/18/20 23:15 12/28/20 12:40 Aspirin (Aspirin Chewable) 81 mg DAILY PO 12/19/20 09:00 12/31/20 08:18 Bisacodyl (Dulcolax Supp) 10 mg PRN DAILY PRN RC CONSTIPATION 12/18/20 23:15 Fluoxetine HCl (PROzac) 20 mg DAILY PO 12/19/20 09:00 12/31/20 08:18 Ketoconazole (Nizoral 2% Shampoo) 1 deanna QTUTHSA TP 12/19/20 16:00 12/21/20 16:19 DC Quetiapine Fumarate (SEROquel) 25 mg DAILY PO 12/19/20 09:00 12/20/20 17:39 DC 12/20/20 09:45 Quetiapine Fumarate (SEROquel) 50 mg QHS PO 12/19/20 21:00 12/20/20 17:39 DC 12/19/20 20:40 Albuterol Sulfate (Ventolin) 2.5 mg RTQID NEB 12/19/20 08:00 12/19/20 11:21 DC Docusate Sodium (Colace Solution) 50 mg BID PO 12/19/20 09:00 12/29/20 18:05 DC 12/28/20 20:02 Pantoprazole Sodium (Protonix) 40 mg DAILYAC PO 12/19/20 07:30 12/31/20 08:18 Levetiracetam (Keppra) 1,000 mg BID PO 12/19/20 09:00 01/01/21 20:52 [place] Carbonate 300 mg BID PO 12/19/20 09:00 01/01/21 20:52 Polyethylene Glycol (miraLAX) 17 gm DAILY PO 12/19/20 09:00 12/30/20 16:58 DC 12/28/20 08:01 Valproic Acid (Depakene) 500 mg DAILY PO 12/19/20 09:00 12/19/20 18:01 DC 12/19/20 10:04 Vitamin D (Vitamin D3) 2,000 unit QHS PO 12/19/20 21:00 01/01/21 20:52 Olanzapine (ZyPREXA ZYDIS) 5 mg PRN Q2HR PRN PO PSYCHOSIS 12/18/20 23:30 12/24/20 20:31 Albuterol Sulfate (Ventolin Hfa Inhaler) 1 puff QID INH 12/19/20 13:00 01/01/21 20:53 Valproic Acid (Depakene) 750 mg QHS PO 12/19/20 21:00 01/01/21 20:52 Valproic Acid (Depakene) 500 mg 0900,1700 PO 12/20/20 09:00 01/01/21 17:00 Multi-Ingred Cream/Lotion/Oil/ Oint (Hydrocerin) 1 deanna BID TP 12/20/20 16:00 01/01/21 20:53 Risperidone (RisperDAL) 0.25 mg 0800 PO 12/21/20 08:00 12/22/20 17:58 DC 12/22/20 05:27 Risperidone (RisperDAL) 0.5 mg HS PO 12/20/20 21:00 12/22/20 17:58 DC 12/21/20 19:45 Ketoconazole (Nizoral 2% Shampoo) 1 deanna QODAY TP 12/22/20 12:00 12/28/20 08:28 Risperidone (RisperDAL) 1.5 mg 1X ONCE PO 12/22/20 21:00 12/22/20 21:01 DC 12/22/20 20:36 Risperidone (RisperDAL) 1 mg BID PO 12/22/20 09:00 12/22/20 18:21 DC Risperidone (RisperDAL) 1 mg BID PO 12/23/20 09:00 01/01/21 20:52 Docusate Sodium (Colace) 100 mg DAILY PO 12/30/20 09:00 12/31/20 08:18 I have reviewed the current psychotropics carefully including drug interactions. Risk benefit ratio favors no change other than as noted in my dictated progress note. Diagnosis: Problems: (1) Schizoaffective disorder, bipolar type (2) Anxiety disorder, unspecified (3) Bipolar disorder, curr episode mixed, severe, with psychotic features ROSI OSORIO MD Jan 01, 2021 21:05
--- NOTE | 2021-01-01 23:33 | NUR ---
Pt located in his room this evening. Pt calm and cooperative, stated he was upset that his discharge got postponed. Compliant with whole medications with honey thick liquid.
[2021-01-02 05:25] VITALS: BP 131/72
[2021-01-02] MEDS: PANTOPRAZOLE 40 MG TABLET. PO SCH (07:30)
[2021-01-02] MEDS: ASPIRIN CHEWABLE 81 MG TABLET. PO SCH (09:00)
[2021-01-02] MEDS: risperiDONE 1 MG TABLET. PO SCH ×2 (09:00→19:48)
[2021-01-02] MEDS: levETIRAcetam 500 MG TABLET PO SCH ×2 (09:00→19:48)
[2021-01-02] MEDS: MINERAL OIL/PETROLATUM TOPICAL CREAM 113GM JAR. TP SCH ×2 (09:00→19:49)
[2021-01-02] MEDS: FLUoxetine HCL 20 MG CAPSULE PO SCH (09:00)
[2021-01-02] MEDS: LITHIUM CARBONATE 300 MG TABLET PO SCH ×2 (09:00→19:48)
[2021-01-02] MEDS: ALBUTEROL SULFATE 8GM INHALER. INH SCH ×3 (09:00→19:48)
[2021-01-02] MEDS: DOCUSATE SODIUM 100 MG CAPSULE PO SCH (09:00)
[2021-01-02] MEDS: VALPROIC ACID 250 MG CAPSULE. PO SCH ×2 (09:00→19:48)
--- NOTE | 2021-01-02 10:26 | NUR ---
[facility] Social Work Discharge Planning Form Patient Name ELISABETH PALACIOS Admit Date: 12/18/20 DISCHARGE PLAN Discharge Destination: [facility] Assessment: Previously completed Transportation: [facility] to transport on 01/03/21, 10-11am olive picker time. Special Instructions/Notes: Elisabeth has a follow up appointment at the [place] mental [facility] clinic on 01/11/21 at 11:30am. Elisabeth has a follow up appointment at PCP Nam Pratt at [facility] on 01/11/21, fasting lab at 8am, check in with Dr. Pratt at 9:30am. DISCHARGE TO FACILITY Facility: [facility] Address: [address] [place] [address] Contact Name: TO Silva Contact Name: nurse Alissa PCP: Nam Pratt [phone]. [phone], (fax) Psychiatrist: Ori Jeronimo [phone]. [phone], (fax)
--- NOTE | 2021-01-02 16:08 | NUR ---
Pt cooperative and complaint with medication and cares this shift. He has spent much of the day in his room and remains private. Absent of verbal/physical aggression this shift. Will pass on to the next shift
[2021-01-02 16:20] VITALS: BP 127/81
[2021-01-02] MEDS: CHOLECALCIFEROL (VITAMIN D3) 1,000 UNIT TABLET PO SCH (19:48)
--- NOTE | 2021-01-02 21:19 | PDOC ---
Exam Note: Travis Note: Please also refer to the separate dictated note~for this date of service dictated separately.~Patient seen individually. Discussed the patient with Nursing staff reviewed the chart.~Reviewed interim history and current functioning. Reviewed vital signs,~Labs/ Radiology~and current medications noted below. Continue current treatment with the changes noted in the dictated addendum note Assessment: Vital Signs/I&O: Vital Signs Date Time Temp Pulse Resp B/P (MAP) Pulse Ox O2 Delivery O2 Flow Rate FiO2 01/02/21 16:20 97.6 77 18 127/81 (96) 100 01/01/21 06:28 Room Air I & O 01/01/21 01/01/21 01/02/21 15:00 23:00 07:00 Intake Total 720 ml 480 ml Balance 720 ml 480 ml Current Medications: Meds: Current Medications Medications (Trade) Dose Ordered Sig/Manpreet Route PRN Reason Start Time Stop Time Status Last Admin Dose Admin Acetaminophen (Tylenol) 650 mg PRN Q6HRS PRN PO MILD PAIN / TEMP > 100.3'F 12/18/20 22:15 12/18/20 23:22 DC Multi-Ingredient Ointment (Analgesic [place]) 1 deanna PRN QID PRN TP MUSCLE PAIN 12/18/20 22:15 Al Hydroxide/Mg Hydroxide (Mylanta Plus Xs) 15 ml PRN AFTMEALHC PRN PO DYSPEPSIA 12/18/20 22:15 Magnesium Hydroxide (Milk Of Magnesia) 2,400 mg PRN QHS PRN PO 1ST CHOICE CONSTIPATION 12/18/20 22:15 Acetaminophen (Tylenol) 650 mg PRN Q6HRS PRN PO MILD PAIN / TEMP > 100.3'F 12/18/20 23:15 12/28/20 12:40 Aspirin (Aspirin Chewable) 81 mg DAILY PO 12/19/20 09:00 01/02/21 09:00 Bisacodyl (Dulcolax Supp) 10 mg PRN DAILY PRN RC CONSTIPATION 12/18/20 23:15 Fluoxetine HCl (PROzac) 20 mg DAILY PO 12/19/20 09:00 01/02/21 09:00 Ketoconazole (Nizoral 2% Shampoo) 1 deanna QTUTHSA TP 12/19/20 16:00 12/21/20 16:19 DC Quetiapine Fumarate (SEROquel) 25 mg DAILY PO 12/19/20 09:00 12/20/20 17:39 DC 12/20/20 09:45 Quetiapine Fumarate (SEROquel) 50 mg QHS PO 12/19/20 21:00 12/20/20 17:39 DC 12/19/20 20:40 Albuterol Sulfate (Ventolin) 2.5 mg RTQID NEB 12/19/20 08:00 12/19/20 11:21 DC Docusate Sodium (Colace Solution) 50 mg BID PO 12/19/20 09:00 12/29/20 18:05 DC 12/28/20 20:02 Pantoprazole Sodium (Protonix) 40 mg DAILYAC PO 12/19/20 07:30 01/02/21 07:30 Levetiracetam (Keppra) 1,000 mg BID PO 12/19/20 09:00 01/02/21 19:48 [place] Carbonate 300 mg BID PO 12/19/20 09:00 01/02/21 19:48 Polyethylene Glycol (miraLAX) 17 gm DAILY PO 12/19/20 09:00 12/30/20 16:58 DC 12/28/20 08:01 Valproic Acid (Depakene) 500 mg DAILY PO 12/19/20 09:00 12/19/20 18:01 DC 12/19/20 10:04 Vitamin D (Vitamin D3) 2,000 unit QHS PO 12/19/20 21:00 01/02/21 19:48 Olanzapine (ZyPREXA ZYDIS) 5 mg PRN Q2HR PRN PO PSYCHOSIS 12/18/20 23:30 12/24/20 20:31 Albuterol Sulfate (Ventolin Hfa Inhaler) 1 puff QID INH 12/19/20 13:00 01/02/21 19:48 Valproic Acid (Depakene) 750 mg QHS PO 12/19/20 21:00 01/02/21 19:48 Valproic Acid (Depakene) 500 mg 0900,1700 PO 12/20/20 09:00 01/02/21 09:00 Multi-Ingred Cream/Lotion/Oil/ Oint (Hydrocerin) 1 deanna BID TP 12/20/20 16:00 01/02/21 19:49 Risperidone (RisperDAL) 0.25 mg 0800 PO 12/21/20 08:00 12/22/20 17:58 DC 12/22/20 05:27 Risperidone (RisperDAL) 0.5 mg HS PO 12/20/20 21:00 12/22/20 17:58 DC 12/21/20 19:45 Ketoconazole (Nizoral 2% Shampoo) 1 deanna QODAY TP 12/22/20 12:00 12/28/20 08:28 Risperidone (RisperDAL) 1.5 mg 1X ONCE PO 12/22/20 21:00 12/22/20 21:01 DC 12/22/20 20:36 Risperidone (RisperDAL) 1 mg BID PO 12/22/20 09:00 12/22/20 18:21 DC Risperidone (RisperDAL) 1 mg BID PO 12/23/20 09:00 01/02/21 19:48 Docusate Sodium (Colace) 100 mg DAILY PO 12/30/20 09:00 01/02/21 09:00 I have reviewed the current psychotropics carefully including drug interactions. Risk benefit ratio favors no change other than as noted in my dictated progress note. Diagnosis: Problems: (1) Schizoaffective disorder, bipolar type (2) Anxiety disorder, unspecified (3) Bipolar disorder, curr episode mixed, severe, with psychotic features (4) Major depressive disorder with psychotic features ROSI OSORIO MD Jan 02, 2021 21:19
--- NOTE | 2021-01-02 21:19 | PDOC ---
Exam Note: Travis Note: This note is a late entry for 12/21/2020 covers elements not covered in my initial note. Subjective: The patient was seen face to face in the evening of 01/01/2021 with Shira MARK, discussed and reviewed the chart. The patient slept 8-1/2 hours previous night. Also I had a call from Eulalia Miranda, socially responsible investment adviser that [facility] is unable to pick the patient up tomorrow Friday and we will postpone it to Friday. Review of Systems: Ambulation impaired in wheelchair/walker. No CV, , pulmonary, eye, ENT system symptoms on review. He has been fairly appropriate on the unit. Mental Status Exam: The patient is reasonably oriented. Speech is coherent, has some latency. Abstraction is fair. Computation impaired. Language function is intact. Mood and affect is improved, still withdrawn. No suicidal or homicidal ideation. No psychotic symptoms. Laboratory Data: Reviewed. Valproic acid level is therapeutic at 71. [place] 0.8. Impression: Schizoaffective disorder bipolar type, mixed with psychotic features. Anxiety disorder unspecified. Impulse control disorder unspecified. Plan: No change from initial note. Assessment: Vital Signs/I&O: Vital Signs Date Time Temp Pulse Resp B/P (MAP) Pulse Ox O2 Delivery O2 Flow Rate FiO2 01/02/21 16:20 97.6 77 18 127/81 (96) 100 01/01/21 06:28 Room Air I & O 01/01/21 01/01/21 01/02/21 15:00 23:00 07:00 Intake Total 720 ml 480 ml Balance 720 ml 480 ml Current Medications: Meds: Current Medications Medications (Trade) Dose Ordered Sig/Manpreet Route PRN Reason Start Time Stop Time Status Last Admin Dose Admin Acetaminophen (Tylenol) 650 mg PRN Q6HRS PRN PO MILD PAIN / TEMP > 100.3'F 12/18/20 22:15 12/18/20 23:22 DC Multi-Ingredient Ointment (Analgesic [place]) 1 deanna PRN QID PRN TP MUSCLE PAIN 12/18/20 22:15 Al Hydroxide/Mg Hydroxide (Mylanta Plus Xs) 15 ml PRN AFTMEALHC PRN PO DYSPEPSIA 12/18/20 22:15 Magnesium Hydroxide (Milk Of Magnesia) 2,400 mg PRN QHS PRN PO 1ST CHOICE CONSTIPATION 12/18/20 22:15 Acetaminophen (Tylenol) 650 mg PRN Q6HRS PRN PO MILD PAIN / TEMP > 100.3'F 12/18/20 23:15 12/28/20 12:40 Aspirin (Aspirin Chewable) 81 mg DAILY PO 12/19/20 09:00 01/02/21 09:00 Bisacodyl (Dulcolax Supp) 10 mg PRN DAILY PRN RC CONSTIPATION 12/18/20 23:15 Fluoxetine HCl (PROzac) 20 mg DAILY PO 12/19/20 09:00 01/02/21 09:00 Ketoconazole (Nizoral 2% Shampoo) 1 deanna QTUTHSA TP 12/19/20 16:00 12/21/20 16:19 DC Quetiapine Fumarate (SEROquel) 25 mg DAILY PO 12/19/20 09:00 12/20/20 17:39 DC 12/20/20 09:45 Quetiapine Fumarate (SEROquel) 50 mg QHS PO 12/19/20 21:00 12/20/20 17:39 DC 12/19/20 20:40 Albuterol Sulfate (Ventolin) 2.5 mg RTQID NEB 12/19/20 08:00 12/19/20 11:21 DC Docusate Sodium (Colace Solution) 50 mg BID PO 12/19/20 09:00 12/29/20 18:05 DC 12/28/20 20:02 Pantoprazole Sodium (Protonix) 40 mg DAILYAC PO 12/19/20 07:30 01/02/21 07:30 Levetiracetam (Keppra) 1,000 mg BID PO 12/19/20 09:00 01/02/21 19:48 [place] Carbonate 300 mg BID PO 12/19/20 09:00 01/02/21 19:48 Polyethylene Glycol (miraLAX) 17 gm DAILY PO 12/19/20 09:00 12/30/20 16:58 DC 12/28/20 08:01 Valproic Acid (Depakene) 500 mg DAILY PO 12/19/20 09:00 12/19/20 18:01 DC 12/19/20 10:04 Vitamin D (Vitamin D3) 2,000 unit QHS PO 12/19/20 21:00 01/02/21 19:48 Olanzapine (ZyPREXA ZYDIS) 5 mg PRN Q2HR PRN PO PSYCHOSIS 12/18/20 23:30 12/24/20 20:31 Albuterol Sulfate (Ventolin Hfa Inhaler) 1 puff QID INH 12/19/20 13:00 01/02/21 19:48 Valproic Acid (Depakene) 750 mg QHS PO 12/19/20 21:00 01/02/21 19:48 Valproic Acid (Depakene) 500 mg 0900,1700 PO 12/20/20 09:00 01/02/21 09:00 Multi-Ingred Cream/Lotion/Oil/ Oint (Hydrocerin) 1 deanna BID TP 12/20/20 16:00 01/02/21 19:49 Risperidone (RisperDAL) 0.25 mg 0800 PO 12/21/20 08:00 12/22/20 17:58 DC 12/22/20 05:27 Risperidone (RisperDAL) 0.5 mg HS PO 12/20/20 21:00 12/22/20 17:58 DC 12/21/20 19:45 Ketoconazole (Nizoral 2% Shampoo) 1 deanna QODAY TP 12/22/20 12:00 12/28/20 08:28 Risperidone (RisperDAL) 1.5 mg 1X ONCE PO 12/22/20 21:00 12/22/20 21:01 DC 12/22/20 20:36 Risperidone (RisperDAL) 1 mg BID PO 12/22/20 09:00 12/22/20 18:21 DC Risperidone (RisperDAL) 1 mg BID PO 12/23/20 09:00 01/02/21 19:48 Docusate Sodium (Colace) 100 mg DAILY PO 12/30/20 09:00 01/02/21 09:00 I have reviewed the current psychotropics carefully including drug interactions. Risk benefit ratio favors no change other than as noted in my dictated progress note. Diagnosis: Problems: (1) Schizoaffective disorder, bipolar type (2) Anxiety disorder, unspecified (3) Bipolar disorder, curr episode mixed, severe, with psychotic features (4) Major depressive disorder with psychotic features ROSI OSORIO MD Jan 02, 2021 21:19
--- NOTE | 2021-01-02 21:24 | NUR ---
Nursing Note: Pt lying in bed at shift change. Pt calm, pleasant, and interactive when approached. Pt cooperative with assessment and compliant with medications administered whole. Denies SI/HI when asked, no agitation or aggression noted thus far this shift.
[2021-01-02] MEDS ORDERED: ACET325T21 PO (22:52)
[2021-01-02] MEDS ORDERED: DOCU100C28 PO (23:01)
[2021-01-02] MEDS ORDERED: METH57CR17 TP (23:02)
[2021-01-02] MEDS ORDERED: MAGN24003 PO (23:02)
[2021-01-02] MEDS ORDERED: MAG-124 PO (23:02)
[2021-01-02] MEDS ORDERED: MINE454C9 TP (23:03)
[2021-01-02] MEDS ORDERED: OLAN5TAB7 PO (23:03)
[2021-01-02] MEDS ORDERED: VALP250C2 PO ×2 (23:04→23:05)
[2021-01-02] MEDS ORDERED: RISP1TAB88 PO (23:06)
[2021-01-03 05:49] VITALS: BP 116/77
[2021-01-03] MEDS: KETOCONAZOLE 2% SHAMPOO 120ML BOTTLE. TP SCH (07:21)
--- NOTE | 2021-01-03 07:43 | PDOC ---
Exam Note: Travis Note: This note is a late entry for 12/21/2020 covers elements not covered in my initial note. Subjective: The patient was seen face to face in the evening of 01/02/2021 with Shira MARK, discussed and reviewed the chart. The patient slept 8-1/2 hours previous night. Overall the patient has been isolative, spends much time in his room, but quite appropriate. No psychotic symptoms, suicidal or homicidal ideation. Review of Systems: Ambulation impaired in wheelchair. No CV, , pulmonary, eye, ENT system symptoms on review. Mental Status Exam: The patient is reasonably oriented. Speech is coherent, has some latency. Abstraction is fair. Computation impaired. Language function is intact. Mood and affect is improved, still withdrawn. No suicidal or homicidal ideation. No psychotic symptoms. Laboratory Data: Reviewed. Impression: Schizoaffective disorder bipolar type, mixed with psychotic features. Anxiety disorder unspecified. Impulse control disorder unspecified. Plan: No change from initial note. Assessment: Vital Signs/I&O: Vital Signs Date Time Temp Pulse Resp B/P (MAP) Pulse Ox O2 Delivery O2 Flow Rate FiO2 01/03/21 05:49 97.6 83 16 116/77 (90) 98 01/01/21 06:28 Room Air I & O 01/02/21 01/02/21 01/03/21 15:00 23:00 07:00 Intake Total 1080 ml 780 ml Balance 1080 ml 780 ml Current Medications: Meds: Current Medications Medications (Trade) Dose Ordered Sig/Manpreet Route PRN Reason Start Time Stop Time Status Last Admin Dose Admin Acetaminophen (Tylenol) 650 mg PRN Q6HRS PRN PO MILD PAIN / TEMP > 100.3'F 12/18/20 22:15 12/18/20 23:22 DC Multi-Ingredient Ointment (Analgesic [place]) 1 deanna PRN QID PRN TP MUSCLE PAIN 12/18/20 22:15 Al Hydroxide/Mg Hydroxide (Mylanta Plus Xs) 15 ml PRN AFTMEALHC PRN PO DYSPEPSIA 12/18/20 22:15 Magnesium Hydroxide (Milk Of Magnesia) 2,400 mg PRN QHS PRN PO 1ST CHOICE CONSTIPATION 12/18/20 22:15 Acetaminophen (Tylenol) 650 mg PRN Q6HRS PRN PO MILD PAIN / TEMP > 100.3'F 12/18/20 23:15 12/28/20 12:40 Aspirin (Aspirin Chewable) 81 mg DAILY PO 12/19/20 09:00 01/02/21 09:00 Bisacodyl (Dulcolax Supp) 10 mg PRN DAILY PRN RC CONSTIPATION 12/18/20 23:15 Fluoxetine HCl (PROzac) 20 mg DAILY PO 12/19/20 09:00 01/02/21 09:00 Ketoconazole (Nizoral 2% Shampoo) 1 deanna QTUTHSA TP 12/19/20 16:00 12/21/20 16:19 DC Quetiapine Fumarate (SEROquel) 25 mg DAILY PO 12/19/20 09:00 12/20/20 17:39 DC 12/20/20 09:45 Quetiapine Fumarate (SEROquel) 50 mg QHS PO 12/19/20 21:00 12/20/20 17:39 DC 12/19/20 20:40 Albuterol Sulfate (Ventolin) 2.5 mg RTQID NEB 12/19/20 08:00 12/19/20 11:21 DC Docusate Sodium (Colace Solution) 50 mg BID PO 12/19/20 09:00 12/29/20 18:05 DC 12/28/20 20:02 Pantoprazole Sodium (Protonix) 40 mg DAILYAC PO 12/19/20 07:30 01/02/21 07:30 Levetiracetam (Keppra) 1,000 mg BID PO 12/19/20 09:00 01/02/21 19:48 [place] Carbonate 300 mg BID PO 12/19/20 09:00 01/02/21 19:48 Polyethylene Glycol (miraLAX) 17 gm DAILY PO 12/19/20 09:00 12/30/20 16:58 DC 12/28/20 08:01 Valproic Acid (Depakene) 500 mg DAILY PO 12/19/20 09:00 12/19/20 18:01 DC 12/19/20 10:04 Vitamin D (Vitamin D3) 2,000 unit QHS PO 12/19/20 21:00 01/02/21 19:48 Olanzapine (ZyPREXA ZYDIS) 5 mg PRN Q2HR PRN PO PSYCHOSIS 12/18/20 23:30 2/7/21 20:31 Albuterol Sulfate (Ventolin Hfa Inhaler) 1 puff QID INH 12/19/20 13:00 01/02/21 19:48 Valproic Acid (Depakene) 750 mg QHS PO 12/19/20 21:00 01/02/21 19:48 Valproic Acid (Depakene) 500 mg 0900,1700 PO 12/20/20 09:00 01/02/21 09:00 Multi-Ingred Cream/Lotion/Oil/ Oint (Hydrocerin) 1 deanna BID TP 12/20/20 16:00 01/02/21 19:49 Risperidone (RisperDAL) 0.25 mg 0800 PO 12/21/20 08:00 12/22/20 17:58 DC 12/22/20 05:27 Risperidone (RisperDAL) 0.5 mg HS PO 12/20/20 21:00 12/22/20 17:58 DC 12/21/20 19:45 Ketoconazole (Nizoral 2% Shampoo) 1 deanna QODAY TP 12/22/20 12:00 12/28/20 08:28 Risperidone (RisperDAL) 1.5 mg 1X ONCE PO 12/22/20 21:00 12/22/20 21:01 DC 12/22/20 20:36 Risperidone (RisperDAL) 1 mg BID PO 12/22/20 09:00 12/22/20 18:21 DC Risperidone (RisperDAL) 1 mg BID PO 12/23/20 09:00 01/02/21 19:48 Docusate Sodium (Colace) 100 mg DAILY PO 12/30/20 09:00 01/02/21 09:00 I have reviewed the current psychotropics carefully including drug interactions. Risk benefit ratio favors no change other than as noted in my dictated progress note. Diagnosis: Problems: (1) Schizoaffective disorder, bipolar type (2) Anxiety disorder, unspecified (3) Bipolar disorder, curr episode mixed, severe, with psychotic features (4) Major depressive disorder with psychotic features ROSI OSORIO MD Jan 03, 2021 07:43
[2021-01-03] MEDS: DOCUSATE SODIUM 100 MG CAPSULE PO SCH (08:10)
[2021-01-03] MEDS: levETIRAcetam 500 MG TABLET PO SCH (08:10)
[2021-01-03] MEDS: LITHIUM CARBONATE 300 MG TABLET PO SCH (08:11)
[2021-01-03] MEDS: VALPROIC ACID 250 MG CAPSULE. PO SCH ×3 (08:11→17:14)
[2021-01-03] MEDS: ASPIRIN CHEWABLE 81 MG TABLET. PO SCH (08:11)
[2021-01-03] MEDS: PANTOPRAZOLE 40 MG TABLET. PO SCH (08:11)
[2021-01-03] MEDS: FLUoxetine HCL 20 MG CAPSULE PO SCH (08:11)
[2021-01-03] MEDS: risperiDONE 1 MG TABLET. PO SCH (08:11)
[2021-01-03] MEDS: ALBUTEROL SULFATE 8GM INHALER. INH SCH ×3 (08:15→17:14)
[2021-01-03] MEDS: MINERAL OIL/PETROLATUM TOPICAL CREAM 113GM JAR. TP SCH (08:15)
--- NOTE | 2021-01-03 10:05 | NUR ---
Sabina, nurse at [facility] called to report that they are unable to pick Jacob up this date due to weather conditions and snow. Sabina indicated that they would come and get Jacob on 01/04/21 between 1-2pm. Notified Jacob and he was understanding. Notified nurse of change in d/c plan. Addendum: 01/03/21 at 1142 by CANDACE ARIZA Per request of hospital security system administrator, TO called Cathi, executive sales manager at [facility], to again inquire about picking Jacob up this afternoon as the snow has stopped and sun has come out. Per Cathi, the roads from [place] to the [facility] are in poor condition and she is concerned about their handicapped bus being able to make it safely. Discharge planned for 01/04/21, 1-2pm picker and packer. Cathi is available to speak with hospital security system administrator if necessary and can be reached by calling [phone]. E-mailed hospital security system administrator the above information. Addendum: 01/03/21 at 1519 by CNADACE ARIZA Received voice message from matt Sellers for [facility], who is now able to transport Jacob this date and will pick him up between 5-5:30pm. Notified nurse.
--- NOTE | 2021-01-03 11:41 | NUR ---
Pt has been appropriate during shift; cooperative with assessment and complaint with medications. He does have brief periods where he yells "get out!" When a confused/wandering patient comes into his room, but he has been absent of physically aggressive behaviors. He was originally scheduled to d/c to [facility], however d/t inclement weather the d/c has been postponed. SW discussed delay in d/c with pt and he appeared to take the news well even though he was very optimistic about leaving [facility]. Will pass on to next shift.
[2021-01-03 16:51] VITALS: BP 121/78
--- NOTE | 2021-01-03 17:58 | NUR ---
Transition Record was faxed to follow-up provider with the following elements: Reason for admission, procedures, tests, principal diagnosis, pending studies, patient instructions, 09/06 contact information for unit, phone number to obtain pending test results, plan for follow-up care, physician follow-up, advanced directive information, and medication list with dose, duration and instructions. This information was included in the following documents: History and physical, lab results, study results, progress notes, social work planning form, DC instruction form, patient visit summary, and medication reconciliation form. Date & time record faxed: 01/03/21 approx [id number] Record faxed to: [facility] Record discussed with/ report given to: Estela MARK
--- NOTE | 2021-01-03 22:51 | DS ---
DATE OF DISCHARGE: 01/03/2021 DISCHARGE SUMMARY AND PSYCHIATRIC PROGRESS NOTE This note covers elements not covered in my initial note on 01/03/2021. REASON FOR ADMISSION: Please refer to the admission history for details. Briefly, the patient is a 60-year-old male referred to us from the [facility] after the patient presented there from [facility] on account of active suicidal ideation and homicidal ideation. He had a knife in the dining room, was threatening to hurt one of the other residents. He had threatened to commit suicide. He had been increasingly agitated, depressed, had failed outpatient psychiatric intervention for his bipolar disorder versus schizoaffective disorder, bipolar type, mixed with psychotic features. SIGNIFICANT FINDINGS AND CLINICAL COURSE: Following admission, the patient was seen daily individually by myself from a psychiatric standpoint, medical followup with Dr. Brar/Dr. Jean. The patient is extremely anxious, labile with marked mood lability, paranoia, and fleeting suicidal and homicidal ideation, though the latter were nonspecific. Adjustments were made in his psychotropics and he seemed to respond to a combination of lithium carbonate 300 mg b.i.d. with a lithium level therapeutic at 0.8. Depakene 500 mg, ___ 1500, 750 mg at bedtime with a level therapeutic at 71, Prozac 20 mg a day, Zyprexa 5 mg q. 2 hours p.r.n. psychosis, agitation, Risperdal 1 mg b.i.d. Gradually, the patient's mood appeared to improve, psychotic symptoms abated. He denied suicidal or homicidal ideation. He had 1 incident while hospitalized where he brought some silverware from the dining room to his room and was threatening to cut his wrist. Prior to discharge, his mood had been stable for several days with no suicidal or homicidal ideation. REVIEW OF SYSTEMS: Ambulation impaired, in wheelchair. No CV, , pulmonary, eye, ENT system symptoms on review. MENTAL STATUS EXAM: Reasonably oriented. Speech is coherent, has some latency. Abstraction fair, computation impaired, language function intact. Mood and affect is improved. LABORATORY DATA: Reviewed. CONDITION AT DISCHARGE: Improved. FINAL DIAGNOSES: Schizoaffective disorder, bipolar type, mixed with psychotic features, in partial remission; anxiety disorder, unspecified; impulse control disorder, unspecified. Rest diagnosis unchanged from admission. DISCHARGE MEDICATIONS: Please refer to the MRAD. DISCHARGE INSTRUCTIONS: Outpatient psychiatric and medical followup at the [facility] in [place]. Time for discharge day management greater than 30 minutes. ROSI OSORIO MD DR: MICHELLE/thony JOB#: [id number] / [id number]
--- NOTE | 2021-01-04 08:17 | PDOC ---
Exam Note: Travis Note: This is late entry for 01/03/2021. Please also refer to the separate dictated note~for this date of service dictated separately.~Patient seen individually. Discussed the patient with Nursing staff reviewed the chart.~Reviewed interim history and current functioning. Reviewed vital signs,~Labs/ Radiology~and curre nt medications noted below. Continue current treatment with the changes noted in the dictated addendum note Assessment: Vital Signs/I&O: Vital Signs Date Time Temp Pulse Resp B/P (MAP) Pulse Ox O2 Delivery O2 Flow Rate FiO2 01/03/21 16:51 96.8 73 20 121/78 (92) 98 01/01/21 06:28 Room Air I & O 01/03/21 01/03/21 01/04/21 15:00 23:00 07:00 Intake Total 240 ml 360 ml Balance 240 ml 360 ml Current Medications: Meds: Current Medications Medications (Trade) Dose Ordered Sig/Manpreet Route PRN Reason Start Time Stop Time Status Last Admin Dose Admin Acetaminophen (Tylenol) 650 mg PRN Q6HRS PRN PO MILD PAIN / TEMP > 100.3'F 12/18/20 22:15 12/18/20 23:22 DC Multi-Ingredient Ointment (Analgesic [place]) 1 deanna PRN QID PRN TP MUSCLE PAIN 12/18/20 22:15 01/03/21 18:12 DC Al Hydroxide/Mg Hydroxide (Mylanta Plus Xs) 15 ml PRN AFTMEALHC PRN PO DYSPEPSIA 12/18/20 22:15 01/03/21 18:12 DC Magnesium Hydroxide (Milk Of Magnesia) 2,400 mg PRN QHS PRN PO 1ST CHOICE CONSTIPATION 12/18/20 22:15 01/03/21 18:12 DC Acetaminophen (Tylenol) 650 mg PRN Q6HRS PRN PO MILD PAIN / TEMP > 100.3'F 12/18/20 23:15 01/03/21 18:12 DC 12/28/20 12:40 Aspirin (Aspirin Chewable) 81 mg DAILY PO 12/19/20 09:00 01/03/21 18:12 DC 01/03/21 08:11 Bisacodyl (Dulcolax Supp) 10 mg PRN DAILY PRN RC CONSTIPATION 12/18/20 23:15 01/03/21 18:12 DC Fluoxetine HCl (PROzac) 20 mg DAILY PO 12/19/20 09:00 01/03/21 18:12 DC 01/03/21 08:11 Ketoconazole (Nizoral 2% Shampoo) 1 deanna QTUTHSA TP 12/19/20 16:00 12/21/20 16:19 DC Quetiapine Fumarate (SEROquel) 25 mg DAILY PO 12/19/20 09:00 12/20/20 17:39 DC 12/20/20 09:45 Quetiapine Fumarate (SEROquel) 50 mg QHS PO 12/19/20 21:00 12/20/20 17:39 DC 12/19/20 20:40 Albuterol Sulfate (Ventolin) 2.5 mg RTQID NEB 12/19/20 08:00 12/19/20 11:21 DC Docusate Sodium (Colace Solution) 50 mg BID PO 12/19/20 09:00 12/29/20 18:05 DC 12/28/20 20:02 Pantoprazole Sodium (Protonix) 40 mg DAILYAC PO 12/19/20 07:30 01/03/21 18:12 DC 01/03/21 08:11 Levetiracetam (Keppra) 1,000 mg BID PO 12/19/20 09:00 01/03/21 18:12 DC 01/03/21 08:10 [place] Carbonate 300 mg BID PO 12/19/20 09:00 01/03/21 18:12 DC 01/03/21 08:11 Polyethylene Glycol (miraLAX) 17 gm DAILY PO 12/19/20 09:00 12/30/20 16:58 DC 12/28/20 08:01 Valproic Acid (Depakene) 500 mg DAILY PO 12/19/20 09:00 12/19/20 18:01 DC 12/19/20 10:04 Vitamin D (Vitamin D3) 2,000 unit QHS PO 12/19/20 21:00 01/03/21 18:12 DC 01/02/21 19:48 Olanzapine (ZyPREXA ZYDIS) 5 mg PRN Q2HR PRN PO PSYCHOSIS 12/18/20 23:30 01/03/21 18:12 DC 12/24/20 20:31 Albuterol Sulfate (Ventolin Hfa Inhaler) 1 puff QID INH 12/19/20 13:00 01/03/21 18:12 DC 01/03/21 17:14 Valproic Acid (Depakene) 750 mg QHS PO 12/19/20 21:00 01/03/21 18:12 DC 01/02/21 19:48 Valproic Acid (Depakene) 500 mg 0900,1700 PO 12/20/20 09:00 01/03/21 18:12 DC 01/03/21 17:14 Multi-Ingred Cream/Lotion/Oil/ Oint (Hydrocerin) 1 deanna BID TP 12/20/20 16:00 01/03/21 18:12 DC 01/03/21 08:15 Risperidone (RisperDAL) 0.25 mg 0800 PO 12/21/20 08:00 12/22/20 17:58 DC 12/22/20 05:27 Risperidone (RisperDAL) 0.5 mg HS PO 12/20/20 21:00 12/22/20 17:58 DC 12/21/20 19:45 Ketoconazole (Nizoral 2% Shampoo) 1 deanna QODAY TP 12/22/20 12:00 01/03/21 18:12 DC 12/28/20 08:28 Risperidone (RisperDAL) 1.5 mg 1X ONCE PO 12/22/20 21:00 12/22/20 21:01 DC 12/22/20 20:36 Risperidone (RisperDAL) 1 mg BID PO 12/22/20 09:00 12/22/20 18:21 DC Risperidone (RisperDAL) 1 mg BID PO 12/23/20 09:00 01/03/21 18:12 DC 01/03/21 08:11 Docusate Sodium (Colace) 100 mg DAILY PO 12/30/20 09:00 01/03/21 18:12 DC 01/03/21 08:10 I have reviewed the current psychotropics carefully including drug interactions. Risk benefit ratio favors no change other than as noted in my dictated progress note. Diagnosis: Problems: (1) Anxiety disorder, unspecified (2) Impulse control disorder, unspecified (3) Schizoaffective disorder, bipolar type (4) Bipolar disorder in partial remission ROSI OSORIO MD Jan 04, 2021 08:17
== END 2021-01-03 17:45 | DRG 885 ==
LOC: GEROPSY 21:58
PROVIDERS: ADMIT Psychiatry & Neurology Psychiatry; ATTEND Psychiatry & Neurology Psychiatry
DX: F25.0 Schizoaffective disorder, bipolar type (principal); R45.851 Suicidal ideations; D72.819 Decreased white blood cell count, unspecified; E11.42 Type 2 diabetes mellitus with diabetic polyneuropathy; E78.5 Hyperlipidemia, unspecified; F03.90 Unspecified dementia, unspecified severity, without behavioral disturbance, psychotic disturbance, mood disturbance, and anxiety; F41.9 Anxiety disorder, unspecified; F63.9 Impulse disorder, unspecified; G40.909 Epilepsy, unspecified, not intractable, without status epilepticus; I10 Essential (primary) hypertension; K21.9 Gastro-esophageal reflux disease without esophagitis; R13.10 Dysphagia, unspecified; R45.850 Homicidal ideations; Z79.899 Other long term (current) drug therapy; M19.90 Unspecified osteoarthritis, unspecified site; Z88.8 Allergy status to other drugs, medicaments and biological substances; D69.6 Thrombocytopenia, unspecified
CPT/HCPCS: 36415; 80053; 80061; 80164; 80178; 81001; 82306; 82607; 82947; 83036; 83540; 83550; 83735; 84436; 84443; 84480; 85025; 85379; 86592; 93005; 99285; 92610; 97110